=== PATIENT | male | born 1955 | race Caucasian/White ===

== ENCOUNTER 2018-12-25 19:22 | Emergency (ER) | payer OTHER, SELFPAY ==
[2018-12-25 19:24] VITALS: BP 108/82; PULSE 162; RESP 16; TEMP 36.9; O2SAT 97; BMI 21.3
--- NOTE | 2018-12-25 19:29 | EKG12_ITS ---
Test Reason : CP Blood Pressure : / mmHG Vent. Rate : 107 BPM Atrial Rate : 107 BPM P-R Int : 166 ms QRS Dur : 074 ms QT Int : 316 ms P-R-T Axes : 077 055 055 degrees QTc Int : 421 ms Sinus tachycardia Otherwise normal ECG Confirmed by ALEXYS TURNER ([id number]), editor news MAURICE KAMARA ([id number]) on 12/27/2018 1:18:56 PM Referred By: JOCELINE Confirmed By:ALEXYS TURNER
[2018-12-25 19:40] LABS: Hematocrit 42.9 % (40-54); Mean Corpuscular Hgb 32.8 pg (27.0-32.0); Mean Corpuscular Volume 93.9 fL (80-94); Platelet Count 297 K/mm3 (150-450); RBC Distribution Width CV 13.4 % (11.6-14.6); RBC Distribution Width SD 44.6 fl (35.1-43.9); Red Blood Count 4.57 M/mm3 (4.6-6.2); White Blood Count 11.2 K/mm3 (4.4-11.0)
[2018-12-25 19:42] LABS: Scan Indicated on CBC? Y/N NO
[2018-12-25 20:01] LABS: Anion Gap 10 (5-15); BUN 13 mg/dL (7-18); BUN/Creat Ratio 13.9 RATIO (10-20); Calcium,Total 8.2 mg/dL (8.5-10.1); Chloride 107 mmol/L (98-107); Creatinine, Serum 0.93 mg/dL (0.70-1.30); EST Glomerular Filtration Rate 87 mL/min (>60); Est Glom Filt Rate - Afr Amer 105 mL/min (>60); Estimated Creatinine Clearance 83.31 ml/min; Glucose 88 mg/dL (74-106); Potassium 3.3 mmol/L (3.5-5.1); Sodium Level 140 mmol/L (136-145)
--- NOTE | 2018-12-25 20:06 | ED.DCSUM_ITS ---
History of Present Illness Chief Complaint: Chest Pain Detail of Chief Complaint: Patient complains of palpitations that started couple hours prior to presen Informant: Patient Onset: Today Context: Sudden Onset Timing: Continuous Quality: Palpitations and type sensation Location: Central chest Current Severity: Mild Maximum Severity: Mild Worsened by: Palpitations Relieved by: Nothing Associated Symptoms: Chest tightness Narrative: Patient presents with palpitations and chest discomfort. Onset couple hours prior to presentation. Patient reports intermittent symptoms in the past. He has no past medical history no medication. He is a smoker 1/2 pack/day since the age of 17. He denies symptoms of claudication. He denies exertional dyspnea or exertional chest pain. He denies heat or cold intolerance. He denies weight gain or weight loss. Prior similar symptoms: Yes Recent Illness/Hospitalization: No - Past Medical History (1) No significant past medical history Status: Acute Past Medical History - Allergies and Home Meds Allergies/Adverse Reactions: Allergies No Known Allergies Allergy (Verified 12/25/18 19:29) Primary Care Physician: Care Physician,No Primary [Primary Care Provider] - Prior records reviewed: Yes Surgical History: herniorrhaphy Lives: Alone Smoking Status: Current some day smoker Alcohol: None Drugs: None Review of Systems General: Denies: Chills, Fever, Sweats Eyes: Denies: Visual changes - bilaterally, Diplopia ENT: Denies: Rhinorrhea, Sore throat Cardiovascular: Reports: Chest pain, Palpitations, Heart racing Respiratory: Denies: Dyspnea, Cough, Sputum, Dyspnea on exertion, Orthopnea, Paroxysmal nocturnal dyspnea, -, - Gastrointestinal: Denies: Abdominal pain, Nausea, Vomiting, Diarrhea, Melena, Hematochezia Genitourinary: Denies: Dysuria, Hematuria, Frequency Musculoskeletal: Denies: Back pain, Extremity Pain Skin: Denies: Rash, Wounds Neurological: Denies: Headache, Weakness, Numbness Hematologic: Denies: Easy bruising Allergy: Denies: Uticaria, Swelling of the mouth Physical Exam Vital Signs/Narrative: Vital Signs Temp Pulse Resp BP Pulse Ox 12/25/18 19:24 98.4 F 162 H 16 108/82 H 97 Inital Vital Signs reviewed: Yes General: Well nourished, Well developed, No Acute Distress Head: Normocephalic, Atraumatic Eyes: Perrl, EOMI ENT: Moist mucous membranes, No rhinorrhea Neck: Supple, Nontender Cardiovascular: Regular rhythm, No murmurs, Normal S1, Normal S2, Tachycardia Respiratory: No distress, CTA bilaterally, Chest nontender Abdomen: Soft, Nontender, Nondistended, Normal bowel sounds Back: Nontender, Normal Inspection Extremities: Nontender, No edema, - - There is no asymmetry, swelling, discoloration, leg vein distention, palpable cords or tenderness along the distribution of the deep venous system. Skin: Normal color, No rash. Negative for: Cyanosis, Jaundice Neurological: Alert, Oriented x3, Cranial nerves II-XII grossly intact, Normal Strength, Normal Sensation, Normal DTR Psychological: Normal affect, Normal Mood Diagnostic/Tx/Re-eval Laboratory Results 12/25/18 12/25/18 19:35 19:35 WBC 11.2 H RBC 4.57 L Hgb 15.0 Hct 42.9 MCV 93.9 MCH 32.8 H MCHC 35.0 RDW 13.4 RDW Differential 44.6 H Plt Count 297 MPV 9.0 Sodium 140 Potassium 3.3 L Chloride 107 Carbon Dioxide 23.0 Anion Gap 10 BUN 13 Creatinine 0.93 Estim Creat Clear Calc 83.31 Est GFR (MDRD) Af Amer 105 Est GFR (MDRD) Non-Af 87 BUN/Creatinine Ratio 13.9 Glucose 88 Calcium 8.2 L Troponin I < 0.015 - Rhythm Strip Rhythm Strip: Sinus Tach Rate: 157 - Narrow complex - EKG Initial EKG Interpretation: Sinus Tachycardia - Ventricular rate is 107. VT interval, QS duration, QT interval and axis are normal. - Medical Decision Making Monitor reveals a narrow complex tachycardia. Between 1 5156. This may represent an intranodal tachycardia versus atrial flutter. Since patient is 63 years of age history of smoking complains of tightness troponin was added. Blood work was added as well. Since EKG reveals a sinus tachycardia will observe and contact cardiology once results are available. I was informed by nurse Kareen Bear that patient had left the department. He left because he he was not been to be questioned by a [facility] doctor about his smoking. Blood work reveals a mildly elevated white count. Potassium is 3.3. ED Disposition - Plan for ED Patient: Disposition: Against Medical Advice Diagnosis: Narrow complex tachycardia, Chest pain, central Referrals: Care Physician,No Primary [Primary Care Provider] -
--- NOTE | 2018-12-25 20:09 | ED.RN ---
Pt seen walking out ED doors; followed pt out to check to see if he had a SL still in place and found that he did rt AC. Asked pt to return to have it removed. Pt came with RN, but stated I'm not waiting around 3hrs for some [facility] Doctor to tell me to quit smoking. I don't need treated. Pt returned to room and his RN followed in to removed SL. MD Bean notified of events.
[2018-12-25 20:15] VITALS: BP 99/82; PULSE 106; RESP 18; O2SAT 98
--- NOTE | 2018-12-25 20:17 | NURSING ---
pt walked out of the hospital and was escorted by another RN back to his room. this RN discussed with pt about leaving AMA. Pt stated he does not want the doctor that came in. this RN offered to have another doctor see him. the pt refused. the pt signed the AMA forms and called for a cab. the PIV was removed and discontinued PIV site was intact.
== END 2018-12-25 20:35 | disposition left against medical advice (07) ==
PROVIDERS: Emergency Provider Emergency Medicine
DX: R07.9 Chest pain, unspecified (principal); R00.2 Palpitations; R00.0 Tachycardia, unspecified; F17.200 Nicotine dependence, unspecified, uncomplicated
CPT/HCPCS: 36415; 80048; 84484; 85027; 93005; 99285; A4216

== ENCOUNTER 2018-12-28 12:18 | Emergency (ER) | payer OTHER, SELFPAY ==
[2018-12-28 12:18] VITALS: BP 158/95; PULSE 88; RESP 18; TEMP 36.6; O2SAT 98; BMI 21.1
--- NOTE | 2018-12-28 13:11 | RAD_ITS ---
STUDY: X-RAY CHEST REASON FOR EXAM: Male, 63 years old. Chest pain. Irregular heart rate. TECHNIQUE: PA and lateral views of the chest. COMPARISON: None. FINDINGS: EKG electrodes are seen. Hyperinflation. The lungs are clear. Decreased bilateral bronchovascular markings suggestive of emphysematous changes. There is no demonstrated pleural abnormality. Normal size heart. Normal mediastinum and ajit. Normal visualized pulmonary arteries. Normal visualized aortic arch and descending thoracic aorta. Normal visualized thoracic spine. Normal visualized ribs, clavicles, and shoulders. There is no demonstrated abnormality of the visualized soft tissue structures of the upper abdomen. RAD/Chest PA and Lateral IMPRESSION: Hyperinflation. The lungs are clear. Electronically Signed: Se Heller, at 13:59 EDT , Service support ,
--- NOTE | 2018-12-28 13:11 | EKG12_ITS ---
Test Reason : PALPITATIONS Blood Pressure : / mmHG Vent. Rate : 079 BPM Atrial Rate : 079 BPM P-R Int : 142 ms QRS Dur : 072 ms QT Int : 366 ms P-R-T Axes : 070 064 055 degrees QTc Int : 419 ms Normal sinus rhythm Nonspecific ST abnormality Abnormal ECG Confirmed by ALEXYS TURNER ([id number]), department editor MELBA MORA ([id number]) on 01/03/2019 3:32:56 PM Referred By: JAVED Confirmed By:ALEXYS TURNER
--- NOTE | 2018-12-28 13:20 | PCA ---
NO OLD EKG
--- NOTE | 2018-12-28 13:25 | PCA ---
GOT OLD EKG
[2018-12-28 13:36] LABS: Absolute Neutrophil Count 7.6 X10^3/uL (2.0-7.7); Basophil# 0.02 X10^3/uL; Basophil% 0.2 % (0-1); Eosinophil# 0.13 X10^3/uL; Eosinophils% 1.2 % (0-5); Hemoglobin 14.1 g/dl (13.0-16.5); Lymphocyte % 21.5 % (19-41); Mean Corp Hgb Conc 34.4 g/gl (32-36); Mean Corpuscular Hgb 32.6 pg (27.0-32.0); Mean Corpuscular Volume 94.9 fL (80-94); Mean Platelet Vol. 9.2 fl (6.2-12.0); Monocyte# 0.63 X10^3/uL; Monocyte% 5.9 % (0-10); Neutrophil # 7.61 X10^3/uL (2.7-7.7); POSITIVE COUNT NO; POSITIVE DIFFERENTIAL NO; POSITIVE MORPHOLOGY NO; Platelet Count 286 K/mm3 (150-450); RBC Distribution Width CV 13.6 % (11.6-14.6); RBC Distribution Width SD 47.3 fl (35.1-43.9); Red Blood Count 4.32 M/mm3 (4.6-6.2); White Blood Count 10.7 K/mm3 (4.4-11.0)
[2018-12-28 13:52] LABS: Anion Gap 8 (5-15); BUN 15 mg/dL (7-18); BUN/Creat Ratio 18.2 RATIO (10-20); Calcium,Total 8.6 mg/dL (8.5-10.1); Chloride 106 mmol/L (98-107); Creatinine, Serum 0.83 mg/dL (0.70-1.30); EST Glomerular Filtration Rate 100 mL/min (>60); Est Glom Filt Rate - Afr Amer 120 mL/min (>60); Glucose 102 mg/dL (74-106); Potassium 3.9 mmol/L (3.5-5.1); Sodium Level 139 mmol/L (136-145)
[2018-12-28 14:18] VITALS: RESP 16
--- NOTE | 2018-12-28 15:57 | ED.VISSUMM ---
- ER Visit Summary Date of Service: 12/28/18 Chief Complaint: Palpitations and chest pain History of Present Illness: The patient is a 63 M who presents with palpitations and chest pain that has been intermittent over the past 2 days. Patient states that today when he got to work he felt his heart racing. Patient states the palpitations seem to be worse with some exertion. Patient states he also notices them when he is under stress. Patient states he does get some tightness in his chest when he gets the palpitations. Patient denies any nausea or vomiting. Patient denies any diaphoresis. Patient does admit to some lightheadedness and shortness of breath with the palpitations. Patient denies any fevers or cough. Patient is a smoker. Patient denies any other cardiac or PE risk factors. Physical Examination: Vital signs are stable. Patient is afebrile. Patient is in no acute distress. Oral mucosa is pink and moist. Neck is supple. Trachea is midline. There is no JVD noted. Heart was regular rate and rhythm. Lungs are clear and equal bilateral. Abdomen is soft. Bowel sounds are normal. There is no tenderness. There is no guarding noted. Skin is warm dry. Cranial nerves II through XII are intact. There are no focal motor or sensory deficits noted. The remaining physical exam is within normal limits. Test Results: EKG showed normal sinus rhythm with a rate of 79. There are no acute ST or T wave changes. CBC, basic metabolic profile, troponin were obtained and were normal. PA and lateral chest x-ray was obtained and does not show any acute cardiopulmonary process. Emergency Department Course and Treatment: Patient was observed here in the emergency department. Patient had no episodes of tachycardia here. Patient has a HEART score of 3. Patient has a JAX risk score of 0. She was advised that this is low risk for acute cardiac event. Patient was instructed to follow-up with her primary care physician in 5 to 7 days. Patient was advised that he may need prolonged cardiac monitoring. Patient understood and was agreeable with the plan. All questions were answered. Disposition: Discharge home Impression: Palpitations This note was generated with Trapmine[employer] software. It may contain incorrect words, spelling, and punctuation that were not noted in review of the chart prior to signing ED Disposition - Plan for ED Patient: Disposition: Home or Assisted Living Diagnosis: Palpitations Instructions: ED Palpitations Referrals: Care Physician,Jenn Primary [Primary Care Provider] - Emmanuel Mcmahan MD [STAFF PHYSICIAN] - 5-7 Days
--- NOTE | 2018-12-28 16:01 | ED.DCSUM_ITS ---
- ER Visit Summary Date of Service: 12/28/18 Chief Complaint: Palpitations and chest pain History of Present Illness: The patient is a 63 M who presents with palpitations and chest pain that has been intermittent over the past 2 days. Patient states that today when he got to work he felt his heart racing. Patient states the palpitations seem to be worse with some exertion. Patient states he also notices them when he is under stress. Patient states he does get some tightness in his chest when he gets the palpitations. Patient denies any nausea or vomiting. Patient denies any diaphoresis. Patient does admit to some lightheadedness and shortness of breath with the palpitations. Patient denies a ny fevers or cough. Patient is a smoker. Patient denies any other cardiac or PE risk factors. Physical Examination: Vital signs are stable. Patient is afebrile. Patient is in no acute distress. Oral mucosa is pink and moist. Neck is supple. Trachea is midline. There is no JVD noted. Heart was regular rate and rhythm. Lungs are clear and equal bilateral. Abdomen is soft. Bowel sounds are normal. There is no tenderness. There is no guarding noted. Skin is warm dry. Cranial nerves II through XII are intact. There are no focal motor or sensory deficits noted. The remaining physical exam is within normal limits. Test Results: EKG showed normal sinus rhythm with a rate of 79. There are no acute ST or T wave changes. CBC, basic metabolic profile, troponin were obtained and were normal. PA and lateral chest x-ray was obtained and does not show any acute cardiopulmonary process. Emergency Department Course and Treatment: Patient was observed here in the emergency department. Patient had no episodes of tachycardia here. Patient has a HEART score of 3. Patient has a JAX risk score of 0. She was advised that this is low risk for acute cardiac event. Patient was instructed to follow-up with her primary care physician in 5 to 7 days. Patient was advised that he may need prolonged cardiac monitoring. Patient understood and was agreeable with the plan. All questions were answered. Disposition: Discharge home Impression: Palpitations This note was generated with SilverPushation software. It may contain incorrect words, spelling, and punctuation that were not noted in review of the chart prior to signing ED Disposition - Plan for ED Patient: Disposition: Home or Assisted Living Diagnosis: Palpitations Instructions: ED Palpitations Referrals: Care Physician,No Primary [Primary Care Provider] - Emmanuel Mcmahan MD [STAFF PHYSICIAN] - 5-7 Days
[2018-12-28 16:09] VITALS: BP 140/87; PULSE 82; RESP 16; O2SAT 98
--- NOTE | 2018-12-28 16:10 | ED.RN ---
PT GIVEN WRITTEN AND VERBAL DISCHARGE INSTRUCTIONS. PT VERBALIZES UNDERSTANDING AND DENIES ANY FURTHER QUESTIONS. IV D/C AND COVERED WITH 2X2 GAUZE AND PAPER TAPE. PT AMBULATES OUT OD DEPT AFTER DRESSING SELF. AMBULATES OUT WITH .
== END 2018-12-28 16:12 | disposition home or self-care (01) ==
PROVIDERS: Emergency Provider Emergency Medicine
DX: R00.2 Palpitations (principal); R07.9 Chest pain, unspecified; R06.02 Shortness of breath; R42 Dizziness and giddiness; M54.2 Cervicalgia; F17.200 Nicotine dependence, unspecified, uncomplicated
CPT/HCPCS: 71046; 80048; 84484; 85025; 93005; 99285

== ENCOUNTER 2020-04-03 19:34 | Emergency (ER) | payer OTHER, SELFPAY ==
[2020-04-03] VITALS (7 sets, daily range): BP systolic 102–132; BP diastolic 68–95; PULSE 112–159; RESP 10–18; TEMP 36.4; O2SAT 99–100; BMI 19.9
--- NOTE | 2020-04-03 19:48 | EKG12_ITS ---
Test Reason : REPEAT EKG Blood Pressure : / mmHG Vent. Rate : 116 BPM Atrial Rate : 116 BPM P-R Int : 160 ms QRS Dur : 086 ms QT Int : 332 ms P-R-T Axes : 078 065 046 degrees QTc Int : 461 ms Sinus tachycardia Otherwise normal ECG Confirmed by ALEXYS TURNER ([id number]), editor trade journal MAJOR VIERA ([id number]) on 04/09/2020 9:50:06 AM Referred By: ROQUE Confirmed By:ALEXYS TURNER
[2020-04-03] MEDS: 0.9% Normal Saline 1,000 ML 1000 ML IV (19:52)
[2020-04-03] MEDS: Adenosine 6 MG/2 ML Syringe IV (19:52)
[2020-04-03] MEDS: Adenosine 6 MG/2 ML Syringe 12 MG IV (19:55)
--- NOTE | 2020-04-03 19:58 | EKG12_ITS ---
Test Reason : DYSRHYTHMIA Blood Pressure : / mmHG Vent. Rate : 158 BPM Atrial Rate : 159 BPM P-R Int : 000 ms QRS Dur : 084 ms QT Int : 286 ms P-R-T Axes : 000 050 043 degrees QTc Int : 463 ms Supraventricular tachycardia Nonspecific ST abnormality Abnormal ECG Confirmed by ALEXYS TURNER ([id number]), scientific publications editor MAJOR VIERA ([id number]) on 04/09/2020 9:49:34 AM Referred By: ROQUE Confirmed By:ALEXYS TURNER
--- NOTE | 2020-04-03 20:00 | RAD_ITS ---
STUDY: X-RAY CHEST REASON FOR EXAM: Male, 64 years old. Atrial fibrillation beginning this afternoon. Dizziness. Headache. TECHNIQUE: Single AP portable view of the chest. COMPARISON: 12/28/2018 FINDINGS: There is hyperinflation of the lungs consistent with chronic obstructive lung disease (COPD). No acute infiltrate or mass. There is no demonstrated pleural abnormality. Normal size heart. Normal mediastinum and ajit. Normal visualized pulmonary arteries. Normal visualized aortic arch and descending thoracic aorta. Normal visualized thoracic spine. Normal visualized ribs, clavicles, and shoulders. There is no demonstrated abnormality of the visualized soft tissue structures of the upper abdomen. RAD/Chest 1 View (Portable) IMPRESSION: Hyperinflated lungs without acute cardiopulmonary disease or major interval change. Electronically Signed: Jose Wick DO at 20:24 EDT Tel [phone], Service support ,
[2020-04-03] MEDS: Aspirin 81 MG TAB.CHEW 324 MG PO (20:06)
[2020-04-03 20:37] LABS: Absolute Lymphocyte Count 3.45 X10^3/uL (0.83-4.51); Absolute Neutrophil Count 4.9 X10^3/uL (2.0-7.7); Basophil# 0.07 X10^3/uL; Basophil% 0.7 % (0-1); Eosinophil# 0.37 X10^3/uL; Eosinophils% 3.8 % (0-5); Hemoglobin 15.3 g/dL (13.0-16.5); Lymphocyte # 3.45 X10^3/ul (4.0); Lymphocyte % 35.7 % (19-41); Mean Corpuscular Hgb 34.5 pg (27.0-32.0); Mean Corpuscular Volume 101.4 fL (80-94); Mean Platelet Vol. 9.7 fl (6.2-12.0); Monocyte# 0.83 X10^3/uL; Monocyte% 8.6 % (0-10); NRBC Flagged by Analyzer 0 % (0-5); Neutrophil # 4.92 X10^3/uL (2.7-7.7); Neutrophil % 50.9 % (47-70); Platelet Count 408 K/mm3 (150-450); RBC Distribution Width CV 12.9 % (11.6-14.6); RBC Distribution Width SD 48.3 fl (35.1-43.9); Red Blood Count 4.44 M/mm3 (4.6-6.2); White Blood Count 9.7 K/mm3 (4.4-11.0)
[2020-04-03 20:57] LABS: Anion Gap 10 (5-15); BUN 13 mg/dL (7-18); BUN/Creat Ratio 13.4 RATIO (10-20); Calcium,Total 9.1 mg/dL (8.5-10.1); Chloride 105 mmol/L (98-107); Creatinine, Serum 0.97 mg/dL (0.70-1.30); EST Glomerular Filtration Rate 83 mL/min (>60); Est Glom Filt Rate - Afr Amer 100 mL/min (>60); Estimated Creatinine Clearance 73.67 ml/min; Glucose 91 mg/dL (74-106); Potassium 4.2 mmol/L (3.5-5.1); Sodium Level 140 mmol/L (136-145); Thyroid Stim Hormone (TSH) 1.58 uIU/mL (0.358-3.74)
--- NOTE | 2020-04-03 21:33 | ED.DCSUM_ITS ---
- ER Visit Summary Date of Service: 04/03/20 Chief Complaint: Chest pain and palpitations History of Present Illness: The patient is a 64 M who goes to the [facility]. He reports that at 4:00 this afternoon he had the onset of palpitations. Described this as a fast pounding heart rate. States he feels lightheaded with this. He is not passed out. He also describes a dull, pressure to his chest that was 10 on 10 at worst and 4-10 currently. Is worsened by nothing including exertion. Is also relieved by nothing. He reports he has been nauseated, diaphoretic, and mildly short of breath with this. Patient reports that he is had this multiple times in the past. Is never lasted this long. He is not sure what the cause of this was. He is not anticoagulated. Physical Examination: Vitals: 98.6, 118/81, 158, 20, 99% room air which is not hypoxic. General: Well-nourished and well-developed. Head: Normocephalic atraumatic. Neck: Supple, no lymphadenopathy. No JVD. Nontender. Cardiovascular: Tachycardic regular rhythm. No murmurs. Respiratory: No respiratory distress. Clear to auscultation bilaterally. Abdominal: Soft, nontender, nondistended, normal bowel sounds. No guarding, rebound, or peritoneal signs. Back: Nontender. Extremities: Nontender, no edema. Skin: Normal color, no rash. Neurologic: Alert and oriented ?3. Cranial nerves II through XII are intact. Normal strength and sensation. Psych: Normal affect. Test Results: EKG shows SVT at 158. Repeat EKG is sinus tach at [address] changes. CBC is normal. Chem-7 is normal. Troponin is negative. TSH is normal. Chest x-ray shows chronic changes. Emergency Department Course and Treatment: Patient had an IV placed. Is given 6 mg of adenosine IV with not even a pause. He was then given 12 mg of adenosine IV and converted to sinus rhythm. However, he was tachycardic in the 1 teens following this. He was given 25 mg of Lopressor p.o. Treatment Plan: Patient discussed Dr. Moreno. He will be discharged on Lopressor. Instructed to follow-up in 1 to 2 weeks for another exam. Return to the emergency department for any worsening symptoms. Disposition: To home in improved and stable condition. Impression: 1. SVT. 2. Sinus tachycardia. 3. Cardioversion with adenosine. This note was generated with [employer] dictation software. It may contain incorrect words, spelling, and punctuation that were not noted in review of the chart prior to signing ED Disposition - Plan for ED Patient: Disposition: Home or Assisted Living Instructions: ED Tachycardia PAT Prescriptions: Metoprolol Tartrate 25 mg PO BID #60 tab Prescription Printed Referrals: Elina Noriega NP-Dillon [Primary Care Provider] - Sulma Moreon MD [STAFF PHYSICIAN] - 1-2 Weeks
[2020-04-03] MEDS: Metoprolol Tartrate 25 MG Tablet PO (21:49)
== END 2020-04-03 21:50 | disposition home or self-care (01) ==
LOC: ED 20:09
PROVIDERS: Emergency Provider Emergency Medicine; PCP Nurse Practitioner Family
DX: I47.1 Supraventricular tachycardia (principal); F17.200 Nicotine dependence, unspecified, uncomplicated
CPT/HCPCS: 71045; 80048; 84443; 84484; 85025; 93005; 96361; 96374; 96376; 99285; J7030; A4216; J0153

== ENCOUNTER → 2021-06-07 09:21 | Outpatient (CLI) | payer OTHER, SELFPAY ==
[2021-06-07 09:48] LABS: Absolute Lymphocyte Count 1.92 X10^3/uL (0.83-4.51); Absolute Neutrophil Count 4.8 X10^3/uL (2.0-7.7); Basophil# 0.06 X10^3/uL; Basophil% 0.8 % (0-1); Eosinophil# 0.35 X10^3/uL; Eosinophils% 4.5 % (0-5); Hematocrit 44.2 % (40-54); Hemoglobin 14.8 g/dL (13.0-16.5); Lymphocyte # 1.92 X10^3/ul (0.83-4.51); Lymphocyte % 24.5 % (19-41); Mean Corp Hgb Conc 33.5 g/dL (32-36); Mean Corpuscular Hgb 33.9 pg (27.0-32.0); Mean Corpuscular Volume 101.1 fL (80-94); Mean Platelet Vol. 9.7 fl (6.2-12.0); Monocyte# 0.66 X10^3/uL; Monocyte% 8.4 % (0-10); NRBC Flagged by Analyzer 0 % (0-5); Neutrophil # 4.81 X10^3/uL (2.7-7.7); Neutrophil % 61.4 % (47-70); Platelet Count 329 K/mm3 (150-450); RBC Distribution Width CV 12.8 % (11.6-14.6); RBC Distribution Width SD 48.1 fl (35.1-43.9); Red Blood Count 4.37 M/mm3 (4.6-6.2); White Blood Count 7.8 K/mm3 (4.4-11.0)
[2021-06-07 10:52] LABS: ALB/GLOB Ratio 1.1 RATIO (0.9-2.4); AST(SGOT) 37 U/L (15-37); Alanine Aminotransfer ALT/SGPT 53 U/L (16-61); Albumin, Serum 4.2 g/dL (3.2-5.0); Alkaline Phosphatase 69 U/L (45-117); Anion Gap 7 (5-15); BUN 18 mg/dL (7-18); Calcium,Total 8.8 mg/dL (8.5-10.1); Chloride 106 mmol/L (98-107); Cholesterol 237 mg/dL (200); EST Glomerular Filtration Rate 79 mL/min (>60); Est Glom Filt Rate - Afr Amer 96 mL/min (>60); Globulin 3.9 g/dL (2.2-4.2); Glucose 113 mg/dL (74-106); High Density Lipoprotein 81 mg/dL; PSA,Total - Annual Screen 8.63 ng/mL (0.00-4.00); Potassium 4.6 mmol/L (3.5-5.1); Protein, Total 8.1 g/dL (6.4-8.2); Sodium Level 139 mmol/L (136-145); Thyroid Stim Hormone (TSH) 0.94 uIU/mL (0.358-3.74); Triglycerides 71 mg/dL; Very Low Density Lipoprotein 14 mg/dL (5-40)
== END ==
LOC: LAB 09:22
PROVIDERS: Referring Provider Nurse Practitioner Adult Health; Visit Provider Nurse Practitioner Adult Health
DX: Z12.5 Encounter for screening for malignant neoplasm of prostate (principal); Z12.11 Encounter for screening for malignant neoplasm of colon; I10 Essential (primary) hypertension
CPT/HCPCS: 36415; 80053; 80061; 82274; 84153; 84443; 85025; G0103

== ENCOUNTER 2021-07-02 07:42 | Day surgery (SDC) | payer OTHER, SELFPAY ==
--- NOTE | 2021-07-02 | EGD_PTH ---
PATIENT: Freya LITTLE LOC: EN U#:[id number] AGE/SX: 66/M ROOM: RE07/02/[address]: Dr. Nolan Calderon MD : [id number] BED: DIS: 07/02/2021 SPEC #: [id number] RECD: 07/02/21 13:25 STATUS: AUTUMN REJessica #: [id number] YAIMA: 07/02/21 00:[address]: Nolan Calderon DEPT: SURGICAL PATHOLOGY RECD BY: Salo Humphreys ENTERED: 07/02/21 13:25 SP TYPE: EGD BIOPSY OT DR: Ellyn Beaulieu, DIRECTOR [facility] Tissues: Cecum, NOS Procedures: Surgery Specimen Level IV HEADER OPERATION: Colonoscopy, EGD ([facility]) PRE-OP DIAGNOSIS: Anemia, fecal occult blood test positive TISSUE SUBMITTED: Cecum biopsy MICROSCOPIC DIAGNOSIS Cecum, biopsy: No pathologic change. AM:juma 07/03/2021 MICROSCOPIC DESCRIPTION Slides are reviewed. GROSS DESCRIPTION Received in fixative is one container labeled with the patient's name and designated cecum biopsy. The specimen consists of multiple irregular fragments of light carter soft tissue that in aggregate measure 0.5 x 0.5 x 0.1 cm. The specimen is totally submitted in one cassette. / ROBERT:juma 07/02/21 TC:5 CPT: 78534
--- NOTE | 2021-07-02 08:06 | PCM.HP.BLA ---
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 Is patient in pain?: No Allergies No Known Allergies Allergy (Verified 06/25/21 09:29) Medications aspirin 81 mg tablet,delayed release 81 mg PO DAILY 06/25/21 [History Confirmed 06/25/21] cetirizine 10 mg tablet 10 mg PO DAILY 06/25/21 [History Confirmed 06/25/21] dorzolamide 22.3 mg-timolol 6.8 mg/mL eye drops 1 drp OPHTHALMIC (EYE) BID 06/25/21 [History Confirmed 06/25/21] fluticasone propionate 50 mcg/actuation nasal spray,suspension 1 spray INTRANASAL DAILY 06/25/21 [History Confirmed 06/25/21] latanoprost 0.005 % eye drops 1 drp OPHTHALMIC (EYE) QPM 06/25/21 [History Confirmed 06/25/21] lisinopril 20 mg tablet 20 mg PO DAILY 06/25/21 [History Confirmed 06/25/21] mecobalamin (vitamin B12) 5,000 mcg disintegrating tablet mcg PO 06/25/21 [History Confirmed 06/25/21] multivitamin 1 tab PO DAILY 06/25/21 [History Confirmed 06/25/21] PFSH Medical History Atrial fibrillation HTN (hypertension) Surgical History History of eye surgery History of hernia repair Family History Father Colon cancer Mother Diabetes Social History (Updated 06/25/21 @ 09:33 by Ida Figueroa) Smoking Status: Current every day smoker Tobacco: How many years used: 42 HPI HPI HPI: Freya LITTLE, is a 66 M who presents to the office today for positive fecal occult blood test. Patient notes that he is not having any abdominal pain or gross blood in his stool. He was found to be anemic during his last blood draw which facilitated the fecal occult blood test. The patient does note that his father had colon cancer in his 70s. Patient is never had a colonoscopy in the past. He has no abdominal pain. ROS General General: No weight change, appetite, fatigue, colon cancer, breast cancer or weakness HEENT HEENT: No difficulty swallowing, eye injury, eye surgery, swollen glands or hoarseness Endo Endocrine: No thyroid disease, diabetes mellitus, thyroid cancer, Hair loss, heat intolerance or cold intolerance Cardio Cardiovascular: Yes atrial fibrillation and high blood pressure; No murmur, pacemaker, heart disease, heart attack, heart stent, palpitations, shortness of breat with exertion or chest pain Psych Psychiatric: No depression, anxiety or hearing voices Resp Respiratory: No shortness of breath, No sleep apnea, Yes cough, No COPD, No asthma, No emphysema and No wheezing Gastro Gastrointestinal: No abdominal pain, No nausea or vomiting, No diarrhea, No constipation, Yes blood in stool, No acid reflux, No hemorrhoids, No ulcers, No gallbladder problem and No black,tarry stools Caden Hematologic: No blood thinners, No blood disorders, No bleeding, Yes anemia and No blood clots Neuro Neurologic: No weakness Exam Const General: cooperative Orientation: alert and oriented x3 [facility] Head: normal to inspection Neck Neck: normal visual inspection and full ROM Chest Chest palpation & inspection: normal inspection of the chest Resp Effort & Inspection: normal respiratory effort Auscultation: clear to auscultation bilaterally Cardio Rate: regular rate Rhythm: regular rhythm GI Inspection: non-distended Palpation: soft and nontender Skin General: no rashes or lesions noted Neuro General: patient alert and patient oriented x3 Extrem General: full ROM Psych Appearance: grossly normal Mental Status: mental status grossly normal Assessment and Plan Assessment and Plan (1) Anemia: Status: Acute Qualifiers: Anemia type: iron deficiency Iron deficiency anemia type: other iron deficiency Qualified Code(s): D50.8 - Other iron deficiency anemias (2) Fecal occult blood test positive: Status: Acute Orders: Orders: Colonoscopy Today R19.5 EGD Today R19.5 Plan - Dr. Nolan Calderon MD: Patient was found to have iron deficiency anemia so fecal occult blood test was ordered and was positive. The patient has a family history of colon cancer in his father has never had a colonoscopy. Plan for EGD and colonoscopy. I explained endoscopy in detail to the patient. I explained the risks including but not limited to stroke or heart attack with anesthesia, perforation of the GI tract, bleeding, infection. I explained that any of these could necessitate further emergency surgery. The patient understands and all questions were answered sufficiently. The patient wishes to proceed with procedure. Nolan Calderon MD Pager: [facility] [address] [place] [address] [address] [place] [address] Office: I have re-examined the patient. There are no clinical changes since date of exam.
[2021-07-02 08:10] VITALS: BP 156/107; PULSE 110; RESP 18; TEMP 36.3; O2SAT 98; BMI 20.3
[2021-07-02] MEDS: Lactated Ringers 1,000 ML 15 ML IV (08:25)
--- NOTE | 2021-07-02 09:22 | OP.CCLET_ITS ---
07/02/2021 Isabel Penny [facility] Re : Upper GI endoscopy procedure for Freya Torres [facility] This procedure was performed on Friday, July 02, 2021. My impressions and recommendations are as follows: Impressions : - Normal esophagus. - Gastritis with hemorrhage. - Normal examined duodenum. - No specimens collected. Recommendations : - Discharge patient to home. - Resume previous diet. - Continue present medications. - Use Prilosec (omeprazole) 40 mg PO daily for 8 weeks. - Use sucralfate tablets 1 gram PO QID for 3 weeks. My findings are described in the full procedure note, which is enclosed. If I can be of further assistance, please feel free to contact me at Doctor phone number(s): , Work: . Sincerely, Nolan Calderon MD 07/02/2021 9:22:06 AM This report has been signed electronically.
--- NOTE | 2021-07-02 09:22 | OP.EGD_ITS ---
Patient Name: Freya Ramirez Procedure Date: 07/02/2021 8:41 AM Date of : 1955 Age: 66 Procedure: Upper GI endoscopy Indications: Iron deficiency anemia Providers: Nolan Calderon MD Medicines: Monitored Anesthesia Care Patient Profile: This is a 66 year old male. Refer to note in patient chart for documentation of history and physical. Complications: No immediate complications. Estimated blood loss: Minimal. Procedure: Pre-Anesthesia Assessment: - Prior to the procedure, a History and Physical was performed, and patient medications and allergies were reviewed. The patient's tolerance of previous anesthesia was also reviewed. The risks and benefits of the procedure and the sedation options and risks were discussed with the patient. All questions were answered, and informed consent was obtained. Prior Anticoagulants: The patient has taken aspirin, last dose was 4 days prior to procedure. After reviewing the risks and benefits, the patient was deemed in satisfactory condition to undergo the procedure. After obtaining informed consent, the endoscope was passed under direct vision. Throughout the procedure, the patient's blood pressure, pulse, and oxygen saturations were monitored continuously. The gastroscope was introduced through the mouth, and advanced to the third part of duodenum. The upper GI endoscopy was accomplished without difficulty. The patient tolerated the procedure well. Scope In: 8:51:33 AM Scope Out: 8:57:23 AM Total Procedure Duration Time 0 hours 5 minutes 50 seconds Findings: The esophagus was normal. Scattered moderate inflammation with hemorrhage characterized by adherent blood was found in the stomach. The examined duodenum was normal. Impression: - Normal esophagus. - Gastritis with hemorrhage. - Normal examined duodenum. - No specimens collected. Recommendation: - Discharge patient to home. - Resume previous diet. - Continue present medications. - Use Prilosec (omeprazole) 40 mg PO daily for 8 weeks. - Use sucralfate tablets 1 gram PO QID for 3 weeks. Procedure Code(s): --- Professional --- 63510, Esophagogastroduodenoscopy, flexible, transoral; diagnostic, including collection of specimen(s) by brushing or washing, when performed (separate procedure) Diagnosis Code(s): --- Professional --- K29.71, Gastritis, unspecified, with bleeding D50.9, Iron deficiency anemia, unspecified CPT copyright 2017 [employer] [place] [employer]. All rights reserved. The codes documented in this report are preliminary and upon community cultural development officer review may be revised to meet current compliance requirements. Nolan Calderon MD 07/02/2021 9:22:06 AM This report has been signed electronically. Number of Addenda: 0 Note Initiated On: 07/02/2021 8:41 AM
[2021-07-02 09:25] VITALS: BP 102/68; BP 156/107; PULSE 98; RESP 16; TEMP 36.3; O2SAT 95
--- NOTE | 2021-07-02 09:26 | OP.CCLET_ITS ---
07/02/2021 Isabel Penny [facility] Re : Colonoscopy procedure for Freya Torres [facility] This procedure was performed on Friday, July 02, 2021. My impressions and recommendations are as follows: Impressions : - Scattered moderate inflammation was found in the cecum. Biopsied. - The examination was otherwise normal on direct and retroflexion views. Recommendations : - Discharge patient to home. - Resume previous diet. - Continue present medications. - Repeat colonoscopy in 5 years for surveillance based on pathology results. My findings are described in the full procedure note, which is enclosed. If I can be of further assistance, please feel free to contact me at Doctor phone number(s): , Work: . Sincerely, Nolan Calderon MD 07/02/2021 9:25:57 AM This report has been signed electronically.
--- NOTE | 2021-07-02 09:26 | OP.COLON_ITS ---
Patient Name: Freya Ramirez Procedure Date: 07/02/2021 8:58 AM Date of : 1955 Age: 66 Procedure: Colonoscopy Indications: Screening in patient at increased risk: Colorectal cancer in father before age 60 Providers: Nolan Calderon MD Medicines: Monitored Anesthesia Care Patient Profile: This is a 66 year old male. Refer to note in patient chart for documentation of history and physical. Last Colonoscopy: none. The patient's first colonoscopy is today. Complications: No immediate complications. Estimated blood loss: Minimal. Procedure: Pre-Anesthesia Assessment: - Prior to the procedure, a History and Physical was performed, and patient medications and allergies were reviewed. The patient's tolerance of previous anesthesia was also reviewed. The risks and benefits of the procedure and the sedation options and risks were discussed with the patient. All questions were answered, and informed consent was obtained. Prior Anticoagulants: The patient has taken aspirin, last dose was 4 days prior to procedure. After reviewing the risks and benefits, the patient was deemed in satisfactory condition to undergo the procedure. After I obtained informed consent, the scope was passed under direct vision. Throughout the procedure, the patient's blood pressure, pulse, and oxygen saturations were monitored continuously. The Colonoscope was introduced through the anus and advanced to the cecum, identified by appendiceal orifice and ileocecal valve. The colonoscopy was performed without difficulty. The patient tolerated the procedure well. The quality of the bowel preparation was good. Scope In: 9:00:18 AM Scope Withdrawal Time 0 hours 6 minutes 6 seconds Scope Out: 9:16:30 AM Total Procedure Duration Time 0 hours 16 minutes 12 seconds Findings: Scattered moderate inflammation characterized by adherent blood was found in the cecum. Biopsies were taken with a cold forceps for histology. The exam was otherwise without abnormality on direct and retroflexion views. Impression: - Scattered moderate inflammation was found in the cecum. Biopsied. - The examination was otherwise normal on direct and retroflexion views. Recommendation: - Discharge patient to home. - Resume previous diet. - Continue present medications. - Repeat colonoscopy in 5 years for surveillance based on pathology results. Procedure Code(s): --- Professional --- 51489, Colonoscopy, flexible; with biopsy, single or multiple Diagnosis Code(s): --- Professional --- Z80.0, Family history of malignant neoplasm of digestive organs K52.9, Noninfective gastroenteritis and colitis, unspecified CPT copyright 2017 [employer]. All rights reserved. The codes documented in this report are preliminary and upon knitting machine operator helper review may be revised to meet current compliance requirements. Nolan Calderon MD 07/02/2021 9:25:57 AM This report has been signed electronically. Number of Addenda: 0 Note Initiated On: 07/02/2021 8:58 AM
[2021-07-02 09:30] VITALS: BP 115/62; BP 156/107; PULSE 109; RESP 16; O2SAT 97
[2021-07-02 09:35] VITALS: BP 122/107; BP 156/107; PULSE 119; RESP 16; O2SAT 97
[2021-07-02 09:40] VITALS: BP 132/87; BP 156/107; PULSE 107; RESP 16; TEMP 36.4; O2SAT 97
[2021-07-02 09:55] VITALS: BP 156/107
== END 2021-07-02 10:05 | disposition home or self-care (01) ==
LOC: EN 07:43 → AC 07:44
PROVIDERS: Visit Provider Surgery
PROC: 0DJD8ZZ Inspection of Lower Intestinal Tract, Via Natural or Artificial Opening Endoscopic (ICD-10-PCS; CPT 45378; principal; 2021-07-02 08:25)
DX: Z12.11 Encounter for screening for malignant neoplasm of colon (principal); K52.9 Noninfective gastroenteritis and colitis, unspecified; K29.71 Gastritis, unspecified, with bleeding; D50.8 Other iron deficiency anemias; R19.5 Other fecal abnormalities; I10 Essential (primary) hypertension; I48.91 Unspecified atrial fibrillation; M19.90 Unspecified osteoarthritis, unspecified site; F17.210 Nicotine dependence, cigarettes, uncomplicated; Z79.82 Long term (current) use of aspirin; Z79.899 Other long term (current) drug therapy; Z80.0 Family history of malignant neoplasm of digestive organs
CPT/HCPCS: 43235; 45380; 88305; J7120; J2405

== ENCOUNTER → 2021-07-05 07:19 | Outpatient (CLI) | payer OTHER, SELFPAY ==
--- NOTE | 2021-07-05 07:28 | CT_ITS ---
STUDY: CT CHEST WITH CONTRAST REASON FOR EXAM: Male, 66 years old. LT NERISSA SYNDROME RADIATION DOSAGE (If Supplied By Facility): CTDIvol = ( 13.42 ) mGy, DLP = ( 899.93 ) mGycm TECHNIQUE: Transaxial imaging was performed following intravenous administration of IV 100mL Isovue-370. Individualized dose optimization techniques were used for this CT. COMPARISON: None. FINDINGS: Mild bilateral apical scarring. Mild emphysema. No noncalcified nodule or mass. There is no demonstrated pleural abnormality. Normal heart and pericardium. Normal mediastinum. Normal hilar regions. Normal enhanced pulmonary arteries. Normal aorta arch and descending thoracic aorta. Mild dextroscoliosis of the thoracic spine. There is no demonstrated abnormality of the visualized upper abdomen. CT/Chest WITH Contrast IMPRESSION: Mild emphysema without pneumonia, atelectasis, nodule, or mass. Electronically Signed: Guille White MD at 10:14 EST Tel , Service support ,
--- NOTE | 2021-07-05 07:29 | CT_ITS ---
STUDY: CT SOFT TISSUE NECK WITH CONTRAST REASON FOR EXAM: Male, 66 years old. LT NERISSA SYNDROME RADIATION DOSAGE (If Supplied By Facility): CTDIvol = ( 13.42 ) mGy, DLP = ( 899.93 ) mGycm TECHNIQUE: The patient was scanned in a multi-detector CT scanner. High resolution transaxial imaging was performed following intravenous administration of IV 100mL Isovue-370. Sagittal and coronal images were reconstructed. Individualized dose optimization techniques were used for this CT. COMPARISON: None. FINDINGS: Normal bilateral parotid glands. Normal bilateral curing press maintainer spaces. Normal bilateral parapharyngeal spaces. Normal bilateral carotid spaces. Normal bilateral sublingual and submandibular glands and spaces. Normal visualized nasopharynx. Normal retropharyngeal space. Normal perivertebral space. Normal visualized bilateral faucial tonsils. The visualized tongue, tongue base and oropharynx are normal. The visualized cervical lymph nodes (levels I-) are within normal size limits, and maintain normal morphology. There is no demonstrated solid or cystic mass lesion. There is no abnormal contrast enhancement. Normal epiglottis, bilateral vallecula and hypopharynx. The pre-epiglottic and paraglottic adipose spaces are normal. Normal visualized bilateral piriform sinuses, aryepiglottic folds, vocal cords, and arytenoid-cricoid articulations. Normal subglottic trachea. Normal bilateral lobes of the thyroid gland. Normal visualized pulmonary apices. There is mucosal inflammatory disease of the paranasal sinuses consistent with chronic sinusitis. Normal visualized cervical spine. CT/Soft Tissue Neck WITH Contrast IMPRESSION: Normal enhanced CT examination of the soft tissues of the neck. Electronically Signed: Guille White MD at 10:08 EST Tel , Service support ,
== END ==
PROVIDERS: Referring Provider Ophthalmology; Visit Provider Ophthalmology
DX: G90.2 Horner's syndrome (principal); J43.9 Emphysema, unspecified; F17.200 Nicotine dependence, unspecified, uncomplicated
CPT/HCPCS: 70491; 71260; Q9967

== ENCOUNTER → 2021-07-17 10:15 | Outpatient (CLI) | payer OTHER, SELFPAY ==
--- NOTE | 2021-07-17 10:35 | MRI_ITS ---
EXAM: MR HEAD WITHOUT AND WITH INTRAVENOUS CONTRAST : 1955 CLINICAL INDICATION: LT NERISSA'S SYNDROME, uneven pupils TECHNIQUE: Multiplanar and multisequence MR images of the brain were obtained without and with intravenous contrast. This report was created using [employer] report Quack technology. CONTRAST: IV 15ml dotarem COMPARISON: None. FINDINGS: BRAIN AND EXTRA-AXIAL SPACES: Multiple foci of increased T2 signal intensity within the cerebral white matter consistent with gliosis/chronic microvascular disease. No abnormal contrast enhancement. No intra- or extra-axial hemorrhage. No evidence of acute infarct. No intracranial mass or mass effect. There is preservation of the zimmer/white matter interface. Posterior fossa structures are unremarkable. Ventricles are appropriate for age. No hydrocephalus. Basal cisterns are patent. SELLA: Unremarkable. Normal sella turcica, pituitary gland, infundibular stalk, optic chiasm and hypothalamus. AUDITORY SYSTEM: Unremarkable. The internal auditory canals are patent. BONES/JOINTS: Unremarkable. No discrete lytic or blastic abnormalities. SINUSES: Mucosal thickening noted within the paranasal sinuses. MASTOID AIR CELLS: Unremarkable as visualized. Clear. ORBITS: Unremarkable as visualized. Both globes, extraocular muscles, optic nerves and retrobulbar fat appear unremarkable. VASCULATURE: Unremarkable as visualized. Normal flow voids in the major intracranial circulation. MRI/Brain W/WO Contrast IMPRESSION: 1. No acute intracranial abnormality. 2. Chronic microvascular changes. at 1545 Reported and signed by: Homar Viramontes MD Electronically Signed: Homar Viramontes MD at 15:44 EST Tel , Service support ,
== END ==
LOC: MRI 10:21
PROVIDERS: Referring Provider Ophthalmology; Visit Provider Ophthalmology
DX: G90.2 Horner's syndrome (principal)
CPT/HCPCS: 70553; A9575

== ENCOUNTER 2021-11-20 17:26 | Emergency (ER) | payer SELFPAY ==
[2021-11-20 17:27] VITALS: BP 141/104; PULSE 94; RESP 20; TEMP 36.7; O2SAT 96; BMI 21.2
[2021-11-20] MEDS: 0.9% Normal Saline 1,000 ML 1000 ML IV (17:48)
[2021-11-20 17:54] LABS: Absolute Lymphocyte Count 1.51 X10^3/uL (0.83-4.51); Absolute Neutrophil Count 3.6 X10^3/uL (2.0-7.7); Basophil# 0.09 X10^3/uL; Basophil% 1.4 % (0-1); Eosinophil# 0.34 X10^3/uL; Eosinophils% 5.2 % (0-5); Hematocrit 39.8 % (40-54); Hemoglobin 13.7 g/dL (13.0-16.5); Lymphocyte # 1.51 X10^3/ul (0.83-4.51); Mean Corp Hgb Conc 34.4 g/dL (32-36); Mean Corpuscular Volume 101.8 fL (80-94); Mean Platelet Vol. 9.8 fl (6.2-12.0); Monocyte# 1.02 X10^3/uL; Monocyte% 15.5 % (0-10); NRBC Flagged by Analyzer 0 % (0-5); Neutrophil # 3.58 X10^3/uL (2.7-7.7); Neutrophil % 54.6 % (47-70); Platelet Count 240 K/mm3 (150-450); RBC Distribution Width CV 15.1 % (11.6-14.6); RBC Distribution Width SD 56.6 fl (35.1-43.9); Red Blood Count 3.91 M/mm3 (4.6-6.2); White Blood Count 6.6 K/mm3 (4.4-11.0)
[2021-11-20 18:03] LABS: International Normalized Ratio 0.9; Prothrombin Time (Protime)PT. 11.7 SECONDS (11.7-14.9)
[2021-11-20 18:11] LABS: AST(SGOT) 78 U/L (15-37); Alanine Aminotransfer ALT/SGPT 82 U/L (16-61); Albumin, Serum 4.1 g/dL (3.2-5.0); Alkaline Phosphatase 75 U/L (45-117); Anion Gap 6 (5-15); BUN 10 mg/dL (7-18); BUN/Creat Ratio 10.2 RATIO (10-20); Bilirubin, Direct 0.09 mg/dL (0.00-0.30); Calcium,Total 9.2 mg/dL (8.5-10.1); Chloride 101 mmol/L (98-107); Creatinine, Serum 0.98 mg/dL (0.70-1.30); EST Glomerular Filtration Rate 81 mL/min (>60); Est Glom Filt Rate - Afr Amer 98 mL/min (>60); Estimated Creatinine Clearance 73.46 ml/min; Glucose 161 mg/dL (74-106); Lipase 636 U/L (73-393); Potassium 3.5 mmol/L (3.5-5.1); Protein, Total 8.1 g/dL (6.4-8.2); Sodium Level 138 mmol/L (136-145)
--- NOTE | 2021-11-20 18:30 | CT_ITS ---
STUDY: CT ABDOMEN AND PELVIS WITH CONTRAST REASON FOR EXAM: Male, 66 years old. Abdominal pain RADIATION DOSAGE (If Supplied By Facility): CTDIvol = ( 8.53 ) mGy, DLP = ( 368.22 ) mGycm TECHNIQUE: Transaxial images were obtained from the dome of the diaphragm to the symphysis pubis without oral contrast. IV 100mL Isovue-300 was administered. Sagittal and coronal images were reconstructed. Individualized dose optimization techniques were used for this CT. COMPARISON: None. FINDINGS: The visualized lung bases are unremarkable. The visualized portions of the heart are within normal limits. Normal liver. Normal gallbladder and extrahepatic biliary system. Normal spleen. Normal pancreas. Normal bilateral adrenal glands. Normal right kidney. Normal left kidney. Normal visualized stomach. Normal small intestine. There are multiple colonic diverticula consistent with diverticulosis. The appendix is visualized and appears normal. Normal abdominal aorta. Normal inferior vena cava. Normal retroperitoneum. Normal urinary bladder. There is enlargement of the prostate gland. There is a right-sided inguinal hernia containing adipose tissue. Normal osseous structures. CT/Abdomen/Pelvis W IV Cont ONLY IMPRESSION: No acute intra-abdominal process is identified. Prominent fat-containing right inguinal hernia. Diverticulosis. Evidence of prior hernia repair. Electronically Signed: Abhilash Root MD at 19:12 EDT ,
[2021-11-20 19:47] VITALS: BP 122/82; PULSE 92; RESP 15; O2SAT 99
[2021-11-20 19:54] LABS: Bacteria 0 SEEN /hpf (None Seen); Mucous, Urine 0 SEEN /hpf (<or=2+); Red Blood Cells-Urine 0 SEEN /hpf (0-5); Squamous Epithelial Cells - UA 0 SEEN /hpf (0-5)
[2021-11-20 20:01] LABS: Color, Urine Yellow (Yellow); Glucose, Dipstick Normal (Normal); Ketone-Dipstick Negative (Negative); Leukocyte Esterase-Dipstick 25 /ul (Negative); Nitrite-Dipstick Negative (Negative); Occult Blood-Urine 10 /ul (Negative); Protein-Dipstick 30 mg/dl (Negative); Urine Bilirubin Dipstick Negative (Negative); Urine Clarity Clear (Clear); Urine Urobilinogen Normal (Normal); Urine pH 6.5 (5.0 - 8.0)
[2021-11-20 20:11] LABS: White Blood Cells 0-5 SEEN /hpf (0-5)
--- NOTE | 2021-11-20 23:16 | ED.VIS.GI ---
HPI HPI - GI History of Present Illness Chief Complaint: Nausea/Vomiting/Diarrhea Narrative Narrative: 66-year-old male with nausea and vomiting with diarrhea. He states he has had diarrhea for 1 month. No recent antibiotics use. No fever or chills. No black or bloody stools. Patient states the nausea developed today. Patient states that he does drink but only has 2 shots per day of vodka. Patient is an everyday drinker. He describes diffuse crampy abdominal pain. No urinary complaints. [facility] Medical History Alcohol use Arthritis Atrial fibrillation Back pain History of echocardiogram HTN (hypertension) Hypertension Loss of hearing Shortness of breath on exertion Smoker Tachycardia Wears glasses Home Medications aspirin 81 mg tablet,delayed release 81 mg PO DAILY 06/25/21 [History Last Taken Unknown] cetirizine 10 mg tablet 10 mg PO DAILY 06/25/21 [History Last Taken Unknown] dorzolamide 22.3 mg-timolol 6.8 mg/mL eye drops 1 drp OPHTHALMIC (EYE) BID 06/25/21 [History Last Taken Unknown] fluticasone propionate 50 mcg/actuation nasal spray,suspension 1 spray INTRANASAL DAILY 06/25/21 [History Last Taken Unknown] latanoprost 0.005 % eye drops 1 drp OPHTHALMIC (EYE) QPM 06/25/21 [History Last Taken Unknown] lisinopril 20 mg tablet 20 mg PO DAILY 06/25/21 [History Last Taken 07/02/21 07:00] mecobalamin (vitamin B12) 5,000 mcg disintegrating tablet 5,000 mcg PO DAILY 06/25/21 [History Last Taken Unknown] multivitamin 1 tab PO DAILY 06/25/21 [History Last Taken Unknown] omeprazole 40 mg PO DAILY #60 cap 07/02/21 [Rx Last Taken Unknown] sucralfate [Carafate] 1 g PO ACHS #90 tab 07/02/21 [Rx Last Taken Unknown] Allergy/AdvReac Type Severity Reaction Status Date / Time No Known Allergies Allergy Verified 11/20/21 17:32 Family History Father Colon cancer Mother Diabetes Surgical History History of cardiac catheterization History of eye surgery History of hernia repair Social History Smoking Status: Current every day smoker tobacco type: cigarettes Tobacco: How many years used: 42 ROS ROS ED Constitutional Constitutional ED: Denies chills or fever(s) ENT ENT ED: Denies rhinorrhea or sore throat Cardiovascular Cardiovascular: Denies chest pain or palpitations Respiratory/Chest Respiratory/Chest: Denies cough or dyspnea Gastrointestinal Gastrointestinal: Reports abdominal pain, diarrhea, nausea and vomiting Genitourinary Genitourinary ED: Denies dysuria or hematuria Musculoskeletal Musculoskeletal: Denies arthralgias or myalgias Integumentary Denies rash Neurologic Neurologic: Denies headache(s) Psychiatric Psychiatric: Denies anxiety or depression Endocrine Endocrinology: Denies polydipsia or polyuria EXAM Physical Exam Const Vital Signs: 11/20/21 17:27 11/20/21 19:47 Temperature 98.1 F Temperature Source Temporal Pulse Rate 94 92 Respiratory Rate 20 H 15 Blood Pressure 141/104 H 122/82 H Blood Pressure Mean 116 95 Pulse Ox 96 99 Oxygen Delivery Method Room Air Room Air Positive well nourished General Appearance ED: NAD; Negative for pallor HEENT normocephalic and atraumatic Eyes PERRL and EOMs intact bilaterally General Eye ED: Negative for pale conjunctiva or scleral icterus Resp normal respiratory effort and clear to auscultation bilaterally Cardio regular rate and regular rhythm GI GI Narrative: Generalized tenderness. Abdomen nonperitoneal. Palpation: soft Back/Spine no CVA tenderness Neuro Sensorium / Orientation: oriented to person, oriented to place and oriented to time Psych mental status grossly normal Skin General Skin Exam: Negative for jaundice or pallor Lesions: no lesions Rashes: no rashes MDM MDM MDM Narrative Medical decision making narrative: Patient presenting with nausea, vomiting, or diarrhea. The diarrhea has been a month long. The nausea is new. Patient stating was having diffuse crampy abdominal pain but does not have any abdominal pain currently. His abdominal exam is benign. Patient given Zofran for nausea. Lab work obtained shows a normal CBC. Coagulation studies normal. AST and ALT are slightly elevated however bilirubin is normal. Renal function electrolytes are normal. Urinalysis negative for infection. EtOH 335. This is inconsistent with patient's history of 2 shots per day. Lipase is 636. He does not have gina epigastric pain. This is not 3 times the upper limit of normal. CT of the abdomen pelvis is obtained and does not show anything acute. There are no changes of the pancreas. Patient is feeling improved. I discussed with him his elevated alcohol level. He states he wishes to go home now. I requested that he find a sober ride and he did. Patient discharged home in stable condition. Impression: 1. Abdominal pain 2. Nausea vomiting 3. EtOH abuse 4. Diarrhea 5. Elevated lipase Lab Data Attestation: I reviewed the patient's lab results. Labs: Laboratory Results - last 24 hr 11/20/21 11/20/21 11/20/21 17:32 17:32 17:32 WBC 6.6 RBC 3.91 L Hgb 13.7 Hct 39.8 L MCV 101.8 H MCH 35.0 H MCHC 34.4 RDW Std Deviation 56.6 H RDW Coeff of Jane 15.1 H Plt Count 240 MPV 9.8 Immature Gran % (Auto) 0.300 Neut % (Auto) 54.6 Lymph % (Auto) 23.0 Stevens % (Auto) 15.5 H Eos % (Auto) 5.2 H Baso % (Auto) 1.4 H Absolute Neuts (auto) 3.6 Absolute Lymphs (auto) 1.51 Nucleated RBC % 0 PT 11.7 INR 0.9 Sodium 138 Potassium 3.5 Chloride 101 Carbon Dioxide 31.0 Anion Gap 6 BUN 10 Creatinine 0.98 Estim Creat Clear Calc 73.46 Est GFR (MDRD) Af Amer 98 Est GFR (MDRD) Non-Af 81 BUN/Creatinine Ratio 10.2 Glucose 161 H Calcium 9.2 Total Bilirubin 0.20 Direct Bilirubin 0.09 AST 78 H ALT 82 H Alkaline Phosphatase 75 Total Protein 8.1 Albumin 4.1 Globulin 4.0 Lipase 636 H Urine Color Urine Clarity Urine pH Ur Specific [place] Urine Protein Urine Glucose (UA) Urine Ketones Urine Occult Blood Urine Nitrite Urine Bilirubin Urine Urobilinogen Ur Leukocyte Esterase Urine RBC Urine WBC Ur Squamous Epith Cells Urine Bacteria Urine Mucus Ethyl Alcohol 11/20/21 11/20/21 17:32 19:45 WBC RBC Hgb Hct MCV MCH MCHC RDW Std Deviation RDW Coeff of Jane Plt Count MPV Immature Gran % (Auto) Neut % (Auto) Lymph % (Auto) Stevens % (Auto) Eos % (Auto) Baso % (Auto) Absolute Neuts (auto) Absolute Lymphs (auto) Nucleated RBC % PT INR Sodium Potassium Chloride Carbon Dioxide Anion Gap BUN Creatinine Estim Creat Clear Calc Est GFR (MDRD) Af Amer Est GFR (MDRD) Non-Af BUN/Creatinine Ratio Glucose Calcium Total Bilirubin Direct Bilirubin AST ALT Alkaline Phosphatase Total Protein Albumin Globulin Lipase Urine Color Yellow Urine Clarity Clear Urine pH 6.5 Ur Specific [place] 1.010 Urine Protein 30 H Urine Glucose (UA) Normal Urine Ketones Negative Urine Occult Blood 10 H Urine Nitrite Negative Urine Bilirubin Negative Urine Urobilinogen Normal Ur Leukocyte Esterase 25 H Urine RBC 0 SEEN Urine WBC 0-5 SEEN Ur Squamous Epith Cells 0 SEEN Urine Bacteria 0 SEEN Urine Mucus 0 SEEN Ethyl Alcohol 335.0 H* Radiography Diagnostic Testing: Clinical Impression(s) from Imaging Studies Abdomen/Pelvis CT 11/20/21 18:30 IMPRESSION: No acute intra-abdominal process is identified. Prominent fat-containing right inguinal hernia. Diverticulosis. Evidence of prior hernia repair. Electronically Signed: Abhilash Root MD at 19:12 EDT , Discharge Plan Triage Chief Complaint: Nausea/Vomiting/Diarrhea ED Provider: Yoel Rush Dx/Rx/DC Orders Clinical Impression: ETOH abuse, Elevated lipase Instructions: ED Diet for Vomiting or ..., ED Alcohol Intoxication Prescriptions: No Action aspirin 81 mg tablet,delayed release (DR/EC) 81 mg PO DAILY RF: 0 multivitamin Tablet 1 tab PO DAILY RF: 0 dorzolamide-timolol 22.3-6.8 mg/mL drops 1 drp ophthalmic (eye) BID RF: 0 fluticasone propionate [Flonase Allergy Relief] 50 mcg/actuation spray,suspension 1 spray intranasal DAILY RF: 0 latanoprost 0.005 % drops 1 drp ophthalmic (eye) QPM RF: 0 lisinopril 20 mg tablet 20 mg PO DAILY RF: 0 mecobalamin (vitamin B12) 5,000 mcg tablet,disintegrating 5,000 mcg PO DAILY RF: 0 cetirizine [Zyrtec] 10 mg tablet 10 mg PO DAILY RF: 0 omeprazole 40 mg capsule,delayed release(DR/EC) 40 mg PO DAILY Qty: 60 RF: 2 sucralfate [Carafate] 1 gram tablet 1 g PO ACHS Qty: 90 RF: 0 Primary Care Provider: [facility] Isabel Hernandez Referrals: [facility],Isabel Francis [Primary Care Provider] - Disposition Disposition: Home, Self Care Discharge Date/Time: 11/20/21 22:04
== END 2021-11-20 22:04 | disposition home or self-care (01) ==
PROVIDERS: Emergency Provider Student in an Organized Health Care Education/Training Program; Visit Provider Student in an Organized Health Care Education/Training Program
DX: R11.2 Nausea with vomiting, unspecified (principal); I48.91 Unspecified atrial fibrillation; R10.84 Generalized abdominal pain; R74.8 Abnormal levels of other serum enzymes; F10.10 Alcohol abuse, uncomplicated; Y90.8 Blood alcohol level of 240 mg/100 ml or more; R19.7 Diarrhea, unspecified; F17.210 Nicotine dependence, cigarettes, uncomplicated; I10 Essential (primary) hypertension; Z79.82 Long term (current) use of aspirin; Z79.899 Other long term (current) drug therapy
CPT/HCPCS: 74177; 80048; 80076; 81001; 82077; 83690; 85025; 85610; 96360; 99285; J7030; Q9967; A4216

== ENCOUNTER 2021-12-09 18:06 | Emergency (ER) | payer SELFPAY ==
[2021-12-09 18:09] VITALS: BP 137/84; PULSE 101; RESP 18; TEMP 37.3; O2SAT 96; BMI 28.8
[2021-12-09 18:11] VITALS: O2SAT 95
--- NOTE | 2021-12-09 19:48 | CT_ITS ---
STUDY: CT BRAIN WITHOUT CONTRAST REASON FOR EXAM: Male, 66 years old. Pain TECHNIQUE: Transaxial CT imaging of the brain was performed without administration of intravenous contrast material. Individualized dose optimization techniques were used for this CT. COMPARISON: 07/17/2021 MRI FINDINGS: Normal calvarium. Normal soft tissues. Normal size ventricles and extra-axial spaces for the patient''s age. There are areas of decreased attenuation within the white matter tracts of the supratentorial brain, consistent with microvascular disease changes. Normal basal ganglia and thalami. Normal brainstem. Normal cerebellum. There is no intracranial hemorrhage. There are no findings of an acute ischemic infarction. There are calcifications noted in the distal vertebral arteries. There are calcifications noted in the cavernous carotid arteries. This is consistent for atherosclerotic disease. Normal visualized paranasal sinuses. ASPECTS 10 CT/Brain/Head without Contrast IMPRESSION: There are no acute intracranial findings. Electronically Signed: Fausto Shi MD at 20:06 EDT ,
[2021-12-09 20:52] VITALS: BP 129/87; PULSE 108; RESP 18; O2SAT 96
[2021-12-09 21:07] VITALS: BP 135/71; PULSE 81; RESP 10; O2SAT 97
--- NOTE | 2021-12-09 22:55 | EDS_ITS ---
HPI History of Present Illness Chief Complaint: Fall Informant: patient Onset/Context/Timing Onset: Today Mechanism/Context: Fall Quality of Pain: Aching Location: Right side of head Worsened by: Nothing Relieved by: Nothing Associated Symptoms Associated Symptoms: Negative for Parasthesias, Weakness, Loss of function, Inability to ambulate, Loss of consciousness and Amnesia Narrative Narrative: Patient presents with head injury that occurred today. Patient fell and hit the right side of his head. Patient denies any loss of consciousness. Patient denies any paresthesias or weakness. Patient describes his pain as aching. Patient states nothing makes it better nothing makes it worse. EMS reports that the patient appeared to be intoxicated. Patient denies any alcohol or drug use to me. Patient admits to some nausea and vomiting. Patient admits to some shortness of breath. Patient denies any paresthesias or weakness. [facility] Medical History Alcohol use Arthritis Atrial fibrillation Back pain History of echocardiogram HTN (hypertension) Hypertension Loss of hearing Shortness of breath on exertion Smoker Tachycardia Wears glasses Home Medications aspirin 81 mg tablet,delayed release 81 mg PO DAILY 06/25/21 [History Last Taken Unknown] cetirizine 10 mg tablet 10 mg PO DAILY 06/25/21 [History Last Taken Unknown] dorzolamide 22.3 mg-timolol 6.8 mg/mL eye drops 1 drp OPHTHALMIC (EYE) BID 06/25/21 [History Last Taken Unknown] fluticasone propionate 50 mcg/actuation nasal spray,suspension 1 spray INTRANASAL DAILY 06/25/21 [History Last Taken Unknown] latanoprost 0.005 % eye drops 1 drp OPHTHALMIC (EYE) QPM 06/25/21 [History Last Taken Unknown] lisinopril 20 mg tablet 20 mg PO DAILY 06/25/21 [History Last Taken 07/02/21 07:00] mecobalamin (vitamin B12) 5,000 mcg disintegrating tablet 5,000 mcg PO DAILY 06/25/21 [History Last Taken Unknown] multivitamin 1 tab PO DAILY 06/25/21 [History Last Taken Unknown] omeprazole 40 mg PO DAILY #60 cap 07/02/21 [Rx Last Taken Unknown] sucralfate [Carafate] 1 g PO ACHS #90 tab 07/02/21 [Rx Last Taken Unknown] Allergy/AdvReac Type Severity Reaction Status Date / Time No Known Allergies Allergy Verified 12/09/21 18:08 Family History Father Colon cancer Mother Diabetes Surgical History History of cardiac catheterization History of eye surgery History of hernia repair Social History Smoking Status: Current every day smoker tobacco type: cigarettes Tobacco: How many years used: 42 ROS ROS ED Constitutional Constitutional ED: Denies chills or fever(s) Eyes Eyes: Denies blurry vision or change in vision ENT ENT ED: Denies rhinorrhea or sore throat Cardiovascular Cardiovascular: Denies chest pain or palpitations Respiratory/Chest Respiratory/Chest: Reports dyspnea; Denies cough Gastrointestinal Gastrointestinal: Reports nausea and vomiting Genitourinary Genitourinary ED: Denies dysuria or hematuria Musculoskeletal Musculoskeletal: Denies back pain or neck pain Integumentary Denies abscess or rash Neurologic Neurologic: Denies headache(s) or weakness Allergic/Immunologic Allergic/Immunologic ED: Denies mouth swelling or urticaria EXAM Physical Exam Const Vital Signs: 12/09/21 18:09 12/09/21 18:11 12/09/21 20:52 Temperature 99.1 F Temperature Source Temporal Pulse Rate 101 H 108 H Respiratory Rate 18 18 Respiratory Effort Normal Blood Pressure 137/84 H 129/87 H Blood Pressure Mean 101 101 Pulse Ox 96 95 96 Oxygen Delivery Method Room Air Room Air Room Air 12/09/21 21:07 Temperature Temperature Source Pulse Rate 81 Respiratory Rate 10 L Respiratory Effort Blood Pressure 135/71 H Blood Pressure Mean 92 Pulse Ox 97 Oxygen Delivery Method Room Air Positive well nourished and well developed General Appearance ED: well developed and NAD Eyes PERRL and EOMs intact bilaterally Neck full ROM General: Negative for tenderness Resp normal respiratory effort and clear to auscultation bilaterally Cardio regular rhythm Rate: regular rate GI non-tender Palpation: soft Back/Spine no thoracic nor lumbar tenderness Neuro oriented x3, CN's II-XII intact bilaterally, moves all extremities, no focal motor deficits and no sensory deficits noted Sensorium / Orientation: alert Psych mental status grossly normal MDM MDM MDM Narrative Medical decision making narrative: CT scan of the brain was obtained. There is no acute intracranial abnormality. This was interpreted by the radiologist and reviewed by myself. Patient was advised of his findings. Patient was given head injury instructions. Patient was instructed to follow-up with his primary care physician in 5 to 7 days. Patient understood and was agreeable with the plan. All questions were answered. Radiography Diagnostic Testing: Clinical Impression(s) from Imaging Studies Brain CT 12/09/21 19:48 IMPRESSION: There are no acute intracranial findings. Electronically Signed: Fausto Shi MD at 20:06 EDT , Discharge Plan Triage Chief Complaint: Fall ED Provider: Emmanuel Kaba Dx/Rx/DC Orders Clinical Impression: Closed head injury, HTN (hypertension) Instructions: ED Head Injury (Adult) Prescriptions: No Action aspirin 81 mg tablet,delayed release (DR/EC) 81 mg PO DAILY RF: 0 multivitamin Tablet 1 tab PO DAILY RF: 0 dorzolamide-timolol 22.3-6.8 mg/mL drops 1 drp ophthalmic (eye) BID RF: 0 fluticasone propionate [Flonase Allergy Relief] 50 mcg/actuation spray,suspension 1 spray intranasal DAILY RF: 0 latanoprost 0.005 % drops 1 drp ophthalmic (eye) QPM RF: 0 lisinopril 20 mg tablet 20 mg PO DAILY RF: 0 mecobalamin (vitamin B12) 5,000 mcg tablet,disintegrating 5,000 mcg PO DAILY RF: 0 cetirizine [Zyrtec] 10 mg tablet 10 mg PO DAILY RF: 0 omeprazole 40 mg capsule,delayed release(DR/EC) 40 mg PO DAILY Qty: 60 RF: 2 sucralfate [Carafate] 1 gram tablet 1 g PO ACHS Qty: 90 RF: 0 [facility] Care [facility] - [facility]-5 Days Disposition Disposition: Home, Self Care Discharge Date/Time: 12/09/21 21:29
== END 2021-12-09 21:29 | disposition home or self-care (01) ==
PROVIDERS: Emergency Provider Emergency Medicine; Visit Provider Emergency Medicine
DX: S09.90XA Unspecified injury of head, initial encounter (principal); I10 Essential (primary) hypertension; W19.XXXA Unspecified fall, initial encounter; F17.210 Nicotine dependence, cigarettes, uncomplicated; Z79.82 Long term (current) use of aspirin; Z79.899 Other long term (current) drug therapy
CPT/HCPCS: 70450; 99285

== ENCOUNTER 2021-12-22 18:51 | Emergency (ER) | payer SELFPAY ==
[2021-12-22 18:51] VITALS: BP 126/97; PULSE 117; RESP 16; TEMP 36.9; O2SAT 95; BMI 20.5
[2021-12-22 18:57] VITALS: BMI 20.5
--- NOTE | 2021-12-22 19:19 | CT_ITS ---
STUDY: CT BRAIN WITHOUT CONTRAST REASON FOR EXAM: Male, 66 years old. injury Fall, laceration to forehead. RADIATION DOSAGE (If Supplied By Facility): CTDIvol = ( 44.99 ) mGy, DLP = ( 846.73 ) mGycm TECHNIQUE: Transaxial CT imaging of the brain was performed without administration of intravenous contrast material. Individualized dose optimization techniques were used for this CT. COMPARISON: 12/09/2021 FINDINGS: Mild soft tissue swelling of the frontal scalp. Normal calvarium. Normal size ventricles and extra-axial spaces for the patient''s age. Normal white matter tracts of the cerebral hemispheres. Normal basal ganglia and thalami. Normal brainstem. Normal cerebellum. There is no intracranial hemorrhage. There are no findings of an acute ischemic infarction. Normal visualized paranasal sinuses. CT/Brain/Head without Contrast IMPRESSION: No acute intracranial hemorrhage or mass effect. Electronically Signed: Kevin Davidson MD ([place]) at 19:57 EDT ,
--- NOTE | 2021-12-22 19:31 | EX.ED.DYSGE1 ---
HPI History of Present Illness Chief Complaint: Head Injury Informant: patient and EMS Narrative Narrative: Patient is brought to the emergency department with a head laceration from a fall that occurred in his bathroom. Patient states that he fell down striking his head. No reported loss of consciousness. EMS notes unequal pupils. Reportedly this has been a months long issue. He has had prior CT and ophthalmologic examination. The patient denies any neck or back pain. [facility] Medical History Alcohol use Arthritis Atrial fibrillation Back pain History of echocardiogram HTN (hypertension) Hypertension Loss of hearing Shortness of breath on exertion Smoker Tachycardia Wears glasses Home Medications dorzolamide 22.3 mg-timolol 6.8 mg/mL eye drops 1 drp OPHTHALMIC (EYE) BID 06/25/21 [History Last Taken Unknown] latanoprost 0.005 % eye drops 1 drp OPHTHALMIC (EYE) QPM 06/25/21 [History Last Taken 12/21/21] multivitamin 1 tab PO DAILY 06/25/21 [History Last Taken Unknown] Allergy/AdvReac Type Severity Reaction Status Date / Time No Known Allergies Allergy Verified 12/09/21 18:08 Family History Father Colon cancer Mother Diabetes Surgical History History of cardiac catheterization History of eye surgery History of hernia repair Social History Smoking Status: Current every day smoker tobacco type: cigarettes Tobacco: How many years used: 42 ROS ROS ED Constitutional Constitutional ED: Denies chills, fever(s) or weight loss Eyes Eyes: Denies change in vision or diplopia ENT ENT ED: Denies ear pain, rhinorrhea or sore throat Cardiovascular Cardiovascular: Denies chest pain, orthopnea, palpitations or racing heartbeat Respiratory/Chest Respiratory/Chest: Denies cough, dyspnea or orthopnea Gastrointestinal Gastrointestinal: Denies abdominal pain, diarrhea, nausea or vomiting Genitourinary Genitourinary ED: Denies dysuria, hematuria or urinary frequency Musculoskeletal Musculoskeletal: Denies arthralgias, back pain, myalgias or neck pain Integumentary Denies abscess or rash Neurologic Neurologic: Reports headache(s); Denies weakness Psychiatric Psychiatric: Denies anxiety, depression, suicidal ideation or suicidal thoughts Endocrine Endocrinology: Denies polydipsia, polyphagia or polyuria Allergic/Immunologic Allergic/Immunologic ED: Denies mouth swelling, tongue swelling or urticaria EXAM Physical Exam Const Vital Signs: 12/22/21 18:51 12/22/21 18:58 12/22/21 20:18 Temperature 98.4 F 98.5 F Temperature Source Oral Oral Pulse Rate 117 H 111 H Respiratory Rate 16 20 H Respiratory Effort Normal Non-Labored Respiratory Depth Normal Respiratory Pattern Normal Blood Pressure 126/97 H Blood Pressure Mean 106 Pulse Ox 95 98 Oxygen Delivery Method Room Air Room Air Room Air Positive well nourished and well developed General Appearance ED: well developed HEENT Reports normocephalic, head/scalp atraumatic and moist mucous membranes HEENT Narrative: There is a 3 cm lightning bolt laceration to the mid forehead. trauma Eyes PERRL and EOMs intact bilaterally Neck no lymphadenopathy, supple and no JVD Resp normal respiratory effort and clear to auscultation bilaterally Cardio regular rate, regular rhythm and no murmurs GI normal to inspection, nondistended, normoactive bowel sounds and non-tender Palpation: soft Back/Spine no CVA tenderness and normal ROM Extremity normal to inspection General Extremety ED: Negative for edema General Extremity: Negative for edema Neuro oriented x3 and CN's II-XII intact bilaterally Neuro Narrative: While the patient's orientation is not impaired he does have some slurred speech and smells of alcohol Sensorium / Orientation: alert Motor Exam: strength 5/5 throughout Psych mental status grossly normal Mood & Affect: Negative for depressed or tearful Skin no rashes or lesions noted and no wounds MDM MDM MDM Narrative Medical decision making narrative: CT the brain was negative. Patient was reexamined. No other injuries noted. Wound was locally anesthetized using 1% lidocaine washed with Shur-Clens and explored. No foreign bodies noted. Wound was closed using 4 simple interrupted 5-0 Ethilon sutures. Tetanus is updated with Adacel. He will be discharged home Radiography Diagnostic Testing: Clinical Impression(s) from Imaging Studies Brain CT 12/22/21 19:19 IMPRESSION: No acute intracranial hemorrhage or mass effect. Electronically Signed: Kevin Davidson MD ([place]) at 19:57 EDT , Discharge Plan Triage Chief Complaint: Head Injury ED Provider: Himanshu Lazo Dx/Rx/DC Orders Clinical Impression: Facial laceration, Fall Instructions: ED Laceration: All Closures Prescriptions: No Action multivitamin Tablet 1 tab PO DAILY RF: 0 dorzolamide-timolol 22.3-6.8 mg/mL drops 1 drp ophthalmic (eye) BID RF: 0 latanoprost 0.005 % drops 1 drp ophthalmic (eye) QPM RF: 0 Primary Care Provider: Ellyn Beaulieu Referrals: Ellyn Beaulieu, [facility] [Primary Care Provider] - 5 Days for suture removal Disposition Disposition: Home, Self Care
[2021-12-22 20:18] VITALS: PULSE 111; RESP 20; TEMP 36.9; O2SAT 98
[2021-12-22] MEDS: Lidocaine 1% (20 ml mdv) 20 ML Vial INFILT (20:20)
[2021-12-22] MEDS: Diphth,Pertuss(Acell),Tet Vac 0.5 ML Vial IM (20:21)
[2021-12-22 20:45] VITALS: BP 122/80
== END 2021-12-22 20:46 | disposition home or self-care (01) ==
PROVIDERS: Emergency Provider Emergency Medicine; PCP Nurse Practitioner Adult Health; Visit Provider Emergency Medicine
DX: S01.81XA Laceration without foreign body of other part of head, initial encounter (principal); W19.XXXA Unspecified fall, initial encounter; F17.210 Nicotine dependence, cigarettes, uncomplicated
CPT/HCPCS: 12013; 70450; 90715; 99284

== ENCOUNTER 2022-03-21 16:09 | Inpatient (IN) | payer MEDICARE, SELFPAY ==
[2022-03-21] VITALS (14 sets, daily range): BP systolic 113–190; BP diastolic 75–106; PULSE 72–117; RESP 10–24; TEMP 36.2–37.1; O2SAT 80–98; BMI 21.7; BMI 21.8
--- NOTE | 2022-03-21 16:29 | EKG12_ITS ---
Test Reason : OVERDOSE Blood Pressure : / mmHG Vent. Rate : 103 BPM Atrial Rate : 103 BPM P-R Int : 154 ms QRS Dur : 076 ms QT Int : 376 ms P-R-T Axes : 067 051 047 degrees QTc Int : 492 ms Sinus tachycardia Otherwise normal ECG Confirmed by FRANCISCO HOFFMAN, ALYCIA ([id number]), online editor MAURICE KAMARA ([id number]) on 03/24/2022 1:00:44 PM Referred By: Confirmed By:ALYCIA SINGH MD
--- NOTE | 2022-03-21 16:32 | CM.ED ---
ALECIA Note Referral Source: [facility] ALECIA met with patient. His last drink was yesterday. Patient said that his was concerned about him. Patient said that he has never had detox before. Patient said that he drinks a couple of beers a day and 4 shots of vodka. Patient said that he did not drink today as he was out of vodka and I am not getting anymore'. Patient said he came to the ED to get rid of the shakes. Patient said that he has learned his lesson. Patient said that he is not interested in the RAMP program. ALECIA offered information on outpatient AOD programming through [facility] and patient declined. ALECIA updated RN and MD. Plan: To be Determined
--- NOTE | 2022-03-21 17:00 | EDS_ITS ---
HPI History of Present Illness Chief Complaint: Substance Abuse Informant: patient and spouse/S.O. Narrative Narrative: 66-year-old male presenting to the emergency room with tremors. Patient states that he drinks too much alcohol decided not to have any alcohol today. He states that he is shaking. He denies any hallucinations. He notes that he is thinking slowly. He states he does not want to be admitted into the ramp program he just wants some medicine that will help him stop shaking. Patient was asked how much he drinks and he said a beer and 4 ounces of vodka a day. I told him that I do not believe that based on his physical symptoms. His arrives and is irate that he is shaking and nauseous and hypertensive. states that she does not understand why we are not doing things for him. I tried to calmly explained to her that the patient does not wish to stay for which she cuts me off and states no he is staying. Patient cannot tell me how much she really drinks but is estimated to half gallon of vodka a day. Patient cannot tell me why he wants to quit drinking. [facility] Medical History Alcohol use Arthritis Atrial fibrillation Back pain History of echocardiogram HTN (hypertension) Hypertension Loss of hearing Shortness of breath on exertion Smoker Tachycardia Wears glasses Home Medications dorzolamide 22.3 mg-timolol 6.8 mg/mL eye drops 1 drp ophthalmic (eye) BID 06/25/21 [History Last Taken Unknown] latanoprost 0.005 % eye drops 1 drp ophthalmic (eye) QPM 06/25/21 [History Last Taken 12/21/21] multivitamin 1 tab PO DAILY 06/25/21 [History Last Taken Unknown] Cymbalta Check with primary doctor 03/21/22 [History Last Taken Unknown] Allergy/AdvReac Type Severity Reaction Status Date / Time No Known Allergies Allergy Verified 03/21/22 16:12 Family History Father Colon cancer Mother Diabetes Surgical History History of cardiac catheterization History of eye surgery History of hernia repair Social History Smoking Status: Former smoker Tobacco: How many years used: 42 ROS ROS ED Constitutional Constitutional ED: Denies chills or weight loss Eyes Eyes: Denies change in vision or diplopia ENT ENT ED: Denies ear pain, rhinorrhea or sore throat Cardiovascular Cardiovascular: Denies chest pain, orthopnea, palpitations or racing heartbeat Respiratory/Chest Respiratory/Chest: Denies cough, dyspnea or orthopnea Gastrointestinal Gastrointestinal: Reports diarrhea and nausea; Denies abdominal pain or vomiting Genitourinary Genitourinary ED: Denies dysuria, hematuria or urinary frequency Musculoskeletal Musculoskeletal: Reports arthralgias; Denies myalgias Integumentary Reports other Details: sweating ; Denies abscess or rash Neurologic Neurologic: Reports other Details: tremor ; Denies headache(s) or weakness Psychiatric Psychiatric: Denies anxiety, depression, suicidal ideation or suicidal thoughts Endocrine Endocrinology: Denies polydipsia, polyphagia or polyuria Allergic/Immunologic Allergic/Immunologic ED: Denies mouth swelling, tongue swelling or urticaria EXAM Physical Exam Const Vital Signs: 03/21/22 16:12 03/21/22 16:25 Temperature 97.5 F L Temperature Source Temporal Pulse Rate 117 H 110 H Respiratory Rate 24 H Blood Pressure 190/106 H 163/102 H Blood Pressure Mean 134 122 Pulse Ox 98 Oxygen Delivery Method Room Air Positive well nourished and well developed General Appearance ED: well developed HEENT Reports normocephalic, head/scalp atraumatic and moist mucous membranes Eyes PERRL and EOMs intact bilaterally Neck no lymphadenopathy, supple and no JVD Resp normal respiratory effort and clear to auscultation bilaterally Cardio regular rhythm and no murmurs Rate: tachycardic GI normal to inspection, nondistended, normoactive bowel sounds and non-tender Palpation: soft Back/Spine no CVA tenderness and normal ROM Extremity normal to inspection General Extremety ED: Negative for edema General Extremity: Negative for edema Neuro CN's II-XII intact bilaterally Neuro Narrative: Patient has a tremor Sensorium / Orientation: alert, oriented to person, oriented to place and confused Motor Exam: strength 5/5 throughout Psych Mood & Affect: anxious; Negative for depressed or tearful Skin no rashes or lesions noted and no wounds Skin Narrative: Patient is diaphoretic MDM MDM MDM Narrative Medical decision making narrative: Patient received IV Ativan. EKG is tachycardia. We will obtain medical clearance labs. I will talk with the hospitalist about ICU placement. Lab Data Attestation: I reviewed the patient's lab results. Labs: Laboratory Results - last 24 hr 03/21/22 03/21/22 03/21/22 17:14 17:14 17:14 WBC 8.7 RBC 4.16 L Hgb 14.3 Hct 41.3 MCV 99.3 H MCH 34.4 H MCHC 34.6 RDW Std Deviation 50.1 H RDW Coeff of Jane 13.7 Plt Count 255 MPV 9.7 Immature Gran % (Auto) 0.300 Neut % (Auto) 75.5 H Lymph % (Auto) 14.2 L [place] % (Auto) 8.9 Eos % (Auto) 0.3 Baso % (Auto) 0.8 Absolute Neuts (auto) 6.6 Absolute Lymphs (auto) 1.23 Nucleated RBC % 0 PT 12.4 INR 1.0 Sodium 140 Potassium 3.7 Chloride 100 Carbon Dioxide 28.0 Anion Gap 12 BUN 11 Creatinine 1.00 Estim Creat Clear Calc 73.58 Est GFR (MDRD) Af Amer 96 Est GFR (MDRD) Non-Af 79 BUN/Creatinine Ratio 11.0 Glucose 158 H Calcium 9.4 Total Bilirubin 0.60 AST 84 H ALT 89 H Alkaline Phosphatase 79 Total Protein 8.3 H Albumin 4.6 Globulin 3.7 Albumin/Globulin Ratio 1.2 Ethyl Alcohol 03/21/22 17:14 WBC RBC Hgb Hct MCV MCH MCHC RDW Std Deviation RDW Coeff of Jane Plt Count MPV Immature Gran % (Auto) Neut % (Auto) Lymph % (Auto) [place] % (Auto) Eos % (Auto) Baso % (Auto) Absolute Neuts (auto) Absolute Lymphs (auto) Nucleated RBC % PT INR Sodium Potassium Chloride Carbon Dioxide Anion Gap BUN Creatinine Estim Creat Clear Calc Est GFR (MDRD) Af Amer Est GFR (MDRD) Non-Af BUN/Creatinine Ratio Glucose Calcium Total Bilirubin AST ALT Alkaline Phosphatase Total Protein Albumin Globulin Albumin/Globulin Ratio Ethyl Alcohol < 3.0 EKG Initial EKG: Attestation: I personally reviewed and interpreted this EKG as follows: Comments: Sinus tachycardia with a ventricular rate of 103 bpm Critical Care Time Critical Care Time: Yes Critical care time (excluding procedures): 30-74 minutes (35 min), Including time spent:, Discussing w/Patient &/or Family/Brand Protection Manager, Discussing w/Consultants, Arranging Admission or Transfer and Performing Direct Patient Care at Bedside Discharge Plan Dx/Rx/DC Orders Clinical Impression: Atrial fibrillation, HTN (hypertension), DTs (delirium tremens), Alcoholism Disposition Disposition: Acute Care Hospital [facility]
--- NOTE | 2022-03-21 17:21 | NURSING ---
DR EMIL WELLINGTON
--- NOTE | 2022-03-21 17:22 | CM.ED ---
advised that patient reports he wants detox (RAMP) program. ALECIA met with patient and his . Reviewed the Detox program rules which include no outside food, no visitors, no phones and personal items locked up. Reviewed that addiction therapist/wastewater treatment supervisor will follow up with patient tomorrow. Patent verbalized agreement to the RAMP program rules and desire for detox. ALECIA called and left voice mail for Luke advising her of patient desire for detox. Plan: KATLYN OCONNOR
[2022-03-21] MEDS: LORazepam 2 MG/ML Syringe 1 MG IV (17:23)
[2022-03-21] MEDS: Ondansetron 4 MG/2 ML Vial IV (17:23)
[2022-03-21 17:25] LABS: Absolute Lymphocyte Count 1.23 X10^3/uL (0.83-4.51); Absolute Neutrophil Count 6.6 X10^3/uL (2.0-7.7); Basophil# 0.07 X10^3/uL; Basophil% 0.8 % (0-1); Eosinophil# 0.03 X10^3/uL; Eosinophils% 0.3 % (0-5); Hematocrit 41.3 % (40-54); Hemoglobin 14.3 g/dL (13.0-16.5); Lymphocyte # 1.23 X10^3/ul (0.83-4.51); Lymphocyte % 14.2 % (19-41); Mean Corp Hgb Conc 34.6 g/dL (32-36); Mean Corpuscular Hgb 34.4 pg (27.0-32.0); Mean Corpuscular Volume 99.3 fL (80-94); Mean Platelet Vol. 9.7 fl (6.2-12.0); Monocyte# 0.77 X10^3/uL; Monocyte% 8.9 % (0-10); NRBC Flagged by Analyzer 0 % (0-5); Neutrophil # 6.56 X10^3/uL (2.7-7.7); Neutrophil % 75.5 % (47-70); Platelet Count 255 K/mm3 (150-450); RBC Distribution Width CV 13.7 % (11.6-14.6); RBC Distribution Width SD 50.1 fl (35.1-43.9); Red Blood Count 4.16 M/mm3 (4.6-6.2); White Blood Count 8.7 K/mm3 (4.4-11.0)
[2022-03-21 17:31] LABS: Prothrombin Time (Protime)PT. 12.4 SECONDS (11.7-14.9)
[2022-03-21 17:39] LABS: ALB/GLOB Ratio 1.2 RATIO (0.9-2.4); AST(SGOT) 84 U/L (15-37); Alanine Aminotransfer ALT/SGPT 89 U/L (16-61); Albumin, Serum 4.6 g/dL (3.2-5.0); Alkaline Phosphatase 79 U/L (45-117); Anion Gap 12 (5-15); BUN 11 mg/dL (7-18); Calcium,Total 9.4 mg/dL (8.5-10.1); Chloride 100 mmol/L (98-107); EST Glomerular Filtration Rate 79 mL/min (>60); Est Glom Filt Rate - Afr Amer 96 mL/min (>60); Estimated Creatinine Clearance 73.58 ml/min; Globulin 3.7 g/dL (2.2-4.2); Glucose 158 mg/dL (74-106); Potassium 3.7 mmol/L (3.5-5.1); Protein, Total 8.3 g/dL (6.4-8.2); Sodium Level 140 mmol/L (136-145)
--- NOTE | 2022-03-21 17:42 | NURSING ---
ICU JOPPERI DELIRIUM TREMORS
--- NOTE | 2022-03-21 17:47 | PCM.HP.STD ---
[facility] - General General Date of Service: 03/21/22 Chief Complaint: Requesting treatment for alcohol withdrawal HPI Narrative Freya LITTLE, is a 66 M who presents presents with tremulousness. Patient initially said that his last drink of alcohol was yesterday but was actually sometime today. Patient drinks about a quarter of a bottle of vodka per day plus beers. Patient has never intentionally sought abstinence from alcohol before. Patient states that he is tired of being tremulous. Patient states that he drinks to take away the tremors. Patient was profoundly diaphoretic in the emergency room and patient eventually agreed to engaging in the [facility] program after initial hesitation. Patient lives with his significant other who also drinks but not to the level that he does. She is open to quitting alcohol consumption. FORMERLY [facility] Medical History Alcohol use Arthritis Atrial fibrillation Back pain History of echocardiogram HTN (hypertension) Hypertension Loss of hearing Shortness of breath on exertion Smoker Tachycardia Wears glasses Home Medications dorzolamide 22.3 mg-timolol 6.8 mg/mL eye drops 1 drp ophthalmic (eye) BID 06/25/21 [History Last Taken Unknown] latanoprost 0.005 % eye drops 1 drp ophthalmic (eye) QPM 06/25/21 [History Last Taken 12/21/21] multivitamin 1 tab PO DAILY 06/25/21 [History Last Taken Unknown] Allergy/AdvReac Type Severity Reaction Status Date / Time No Known Allergies Allergy Verified 03/21/22 16:12 Family History Father Colon cancer Mother Diabetes Surgical History History of cardiac catheterization History of eye surgery History of hernia repair Social History Smoking Status: Former smoker Tobacco: How many years used: 42 ROS ROS Narrative Tremulousness, diaphoresis. All review of systems were negative except as mentioned above in the history of present illness and the other review of systems. Vital Signs Vital Signs Vital Signs: 03/21/22 16:12 03/21/22 16:25 Temperature 36.4 C L Temperature Source Temporal Pulse Rate 117 H 110 H Respiratory Rate 24 H Blood Pressure 190/106 H 163/102 H Blood Pressure Mean 134 122 Pulse Ox 98 Oxygen Delivery Method Room Air Weight Weight: 72.575 kg Body Mass Index (BMI) 21.7 Physical Exam Const Constitutional Narrative: Diaphoretic. She is awake and alert. Slow responses. Tremulous. HEENT normocephalic and head/scalp atraumatic Eyes Eyes Narrative: No icterus Resp normal respiratory effort, no retractions, no use of accessory muscles and clear to auscultation bilaterally Cardio regular rate, regular rhythm, S1 normal heart sound and S2 normal heart sound GI normal to inspection, nondistended, normoactive bowel sounds and soft to palpation GI Narrative: Hepatomegaly Extremity normal to inspection Results Lab / Micro Data Result Diagrams: 03/21/22 17:14 03/21/22 17:14 Labs: Laboratory Results - last 24 hr 03/21/22 17:14: WBC 8.7, RBC 4.16 L, Hgb 14.3, Hct 41.3, MCV 99.3 H, MCH 34.4 H, MCHC 34.6, RDW Std Deviation 50.1 H, RDW Coeff of Jane 13.7, Plt Count 255, MPV 9.7, Immature Gran % (Auto) 0.300, Neut % (Auto) 75.5 H, Lymph % (Auto) 14.2 L, [place] % (Auto) 8.9, Eos % (Auto) 0.3, Baso % (Auto) 0.8, Absolute Neuts (auto) 6.6, Absolute Lymphs (auto) 1.23, Nucleated RBC % 0 03/21/22 17:14: PT 12.4, INR 1.0 03/21/22 17:14: Sodium 140, Potassium 3.7, Chloride 100, Carbon Dioxide 28.0, Anion Gap 12, BUN 11, Creatinine 1.00, Estim Creat Clear Calc 73.58, Est GFR (MDRD) Af Amer 96, Est GFR (MDRD) Non-Af 79, BUN/Creatinine Ratio 11.0, Glucose 158 H, Calcium 9.4, Total Bilirubin 0.60, AST 84 H, ALT 89 H, Alkaline Phosphatase 79, Total Protein 8.3 H, Albumin 4.6, Globulin 3.7, Albumin/Globulin Ratio 1.2 Assessment & Plan Assessment/Plan (1) Alcohol withdrawal: PLAN: Patient clearly tremulous at this time. Last drink of alcohol was sometime today though smaller quantity than he normally takes. Patient still tremulous after receiving lorazepam. Patient has a high likelihood of further progression into delirium tremens. I feel its best to place the patient in the ICU and start him on a Precedex drip. If patient can remain stable and actually be taken off the Precedex and we can move him to a medical floor but his large quantity of alcohol consumption is very concerning. Thiamine folate Patient's drinks and she was not readily willing to throw away all the alcohol in the house. I told her to do so to help him maintain sobriety. She said that she will comply. I verified with the patient that the purpose of him being hospitalized is get him through his acute alcohol withdrawal but he will need to have ongoing follow-up and counseling as outpatient to help him with his alcoholism and keep him sober. Patient did agree that he would do that. PLAN: Plan VTE prophylaxis with enoxaparin Charges/Coding Visit Charges Inpatient E&M: 13799 Init Hosp L2
--- NOTE | 2022-03-21 17:51 | NURSING ---
ICU 1
[2022-03-21 17:56] LABS: Alcohol, Blood (Medical)-Serum < 3.0 mg/dL
--- NOTE | 2022-03-21 18:06 | ED.RN ---
Report called to ICU
[2022-03-21] MEDS: Dorzolamide HCL/Timolol 10 ml Bottle 1 DRP OPHTHALMIC (21:13)
[2022-03-21] MEDS: Latanoprost 0.005% 1 Bottle 1 DRP OPHTHALMIC (21:14)
[2022-03-21 21:48] LABS: Amphetamine Urine VISTA NEGATIVE (<1000 ng/mL); Barbiturate Urine VISTA NEGATIVE (< 200 ng/mL); Benzodiazepine Urine VISTA NEGATIVE (< 200 ng/mL); Cocaine Urine VISTA NEGATIVE (< 300 ng/mL); Ecstacy Urine VISTA NEGATIVE (< 500 ng/mL); Methadone Urine VISTA NEGATIVE (< 300 ng/mL); PCP Urine VISTA NEGATIVE (< 25 ng/mL); THC Urine VISTA NEGATIVE (< 50 ng/mL)
[2022-03-21 21:50] LABS: Vista UDS pH Range 6
[2022-03-22] VITALS (28 sets, daily range): BP systolic 106–176; BP diastolic 72–105; PULSE 64–100; RESP 10–20; TEMP 36.6–37.1; O2SAT 94–99
[2022-03-22 02:59] LABS: Absolute Lymphocyte Count 1.25 X10^3/uL (0.83-4.51); Absolute Neutrophil Count 3.1 X10^3/uL (2.0-7.7); Basophil# 0.03 X10^3/uL; Basophil% 0.6 % (0-1); Hematocrit 36.4 % (40-54); Hemoglobin 12.2 g/dL (13.0-16.5); Lymphocyte # 1.25 X10^3/ul (0.83-4.51); Lymphocyte % 24.7 % (19-41); Mean Corp Hgb Conc 33.5 g/dL (32-36); Mean Corpuscular Hgb 34.2 pg (27.0-32.0); Mean Platelet Vol. 9.8 fl (6.2-12.0); Monocyte# 0.58 X10^3/uL; Monocyte% 11.5 % (0-10); NRBC Flagged by Analyzer 0 % (0-5); Neutrophil # 3.09 X10^3/uL (2.7-7.7); Platelet Count 191 K/mm3 (150-450); RBC Distribution Width CV 13.7 % (11.6-14.6); RBC Distribution Width SD 51.8 fl (35.1-43.9); Red Blood Count 3.57 M/mm3 (4.6-6.2); White Blood Count 5.1 K/mm3 (4.4-11.0)
[2022-03-22 04:00] LABS: ALB/GLOB Ratio 1.1 RATIO (0.9-2.4); AST(SGOT) 54 U/L (15-37); Alanine Aminotransfer ALT/SGPT 72 U/L (16-61); Albumin, Serum 3.5 g/dL (3.2-5.0); Alkaline Phosphatase 64 U/L (45-117); Anion Gap 5 (5-15); BUN 14 mg/dL (7-18); Calcium,Total 8.3 mg/dL (8.5-10.1); Chloride 102 mmol/L (98-107); Creatinine, Serum 0.82 mg/dL (0.70-1.30); EST Glomerular Filtration Rate 99 mL/min (>60); Est Glom Filt Rate - Afr Amer 120 mL/min (>60); Estimated Creatinine Clearance 92.86 ml/min; Globulin 3.3 g/dL (2.2-4.2); Glucose 115 mg/dL (74-106); Protein, Total 6.8 g/dL (6.4-8.2); Sodium Level 138 mmol/L (136-145)
--- NOTE | 2022-03-22 06:52 | PN.HOSP_ITS ---
Subjective Subjective Feels better. Still tremulous. Denies hallucinations. Objective Data Objective Data Vital Signs: Vital Signs Temp Pulse Resp BP Pulse Ox O2 Del Method O2 Flow Rate 37.0 C 64 14 151/87 H 95 Nasal Cannula 2 03/22/22 00:00 03/22/22 06:00 03/22/22 06:00 03/22/22 06:00 03/22/22 06:00 03/22/22 06:00 03/22/22 06:00 Oxygen Flow Rate (L/min) 2 Oxygen Delivery Method Nasal Cannula Weight: 75.1 kg Body Mass Index (BMI) 21.8 Intake & Output: Intake and Output for Last 24 Hours 03/20/22 03/21/22 03/22/22 23:59 23:59 23:59 Intake Total 52.20 / 54.93 470.29 / 470.29 Output Total 250 / 250 Balance -197.80 / -195.07 470.29 / 470.29 Lab / Micro Data Result Diagrams: 03/22/22 02:50 03/22/22 02:50 Labs: Laboratory Results - last 24 hr 03/21/22 17:14: WBC 8.7, RBC 4.16 L, Hgb 14.3, Hct 41.3, MCV 99.3 H, MCH 34.4 H, MCHC 34.6, RDW Std Deviation 50.1 H, RDW Coeff of Jane 13.7, Plt Count 255, MPV 9.7, Immature Gran % (Auto) 0.300, Neut % (Auto) 75.5 H, Lymph % (Auto) 14.2 L, Scott % (Auto) 8.9, Eos % (Auto) 0.3, Baso % (Auto) 0.8, Absolute Neuts (auto) 6.6, Absolute Lymphs (auto) 1.23, Nucleated RBC % 0 03/21/22 17:14: PT 12.4, INR 1.0 03/21/22 17:14: Sodium 140, Potassium 3.7, Chloride 100, Carbon Dioxide 28.0, Anion Gap 12, BUN 11, Creatinine 1.00, Estim Creat Clear Calc 73.58, Est GFR (MDRD) Af Amer 96, Est GFR (MDRD) Non-Af 79, BUN/Creatinine Ratio 11.0, Glucose 158 H, Calcium 9.4, Total Bilirubin 0.60, AST 84 H, ALT 89 H, Alkaline Phosphatase 79, Total Protein 8.3 H, Albumin 4.6, Globulin 3.7, Albumin/Globulin Ratio 1.2 03/21/22 17:14: Ethyl Alcohol < 3.0 03/21/22 21:05: Urine Opiates Screen NEGATIVE, Urine Methadone Screen NEGATIVE, Ur Barbiturates Screen NEGATIVE, Ur Phencyclidine Scrn NEGATIVE, Ur Amphetamines Screen NEGATIVE, MDMA (Ecstasy) Screen NEGATIVE, U Benzodiazepines Scrn NEGATIVE, Urine Cocaine Screen NEGATIVE, U Cannabinoids Screen NEGATIVE, Ur Drug Screen Comment 03/22/22 02:50: WBC 5.1, RBC 3.57 L, Hgb 12.2 L, Hct 36.4 L, MCV 102.0 H, MCH 34.2 H, MCHC 33.5, RDW Std Deviation 51.8 H, RDW Coeff of Jane 13.7, Plt Count 191, MPV 9.8, Immature Gran % (Auto) 0.200, Neut % (Auto) 61.0, Lymph % (Auto) 24.7, Scott % (Auto) 11.5 H, Eos % (Auto) 2.0, Baso % (Auto) 0.6, Absolute Neuts (auto) 3.1, Absolute Lymphs (auto) 1.25, Nucleated RBC % 0 03/22/22 02:50: Sodium 138, Potassium 4.0, Chloride 102, Carbon Dioxide 31.0, An ion Gap 5, BUN 14, Creatinine 0.82, Estim Creat Clear Calc 92.86, Est GFR (MDRD) Af Amer 120, Est GFR (MDRD) Non-Af 99, BUN/Creatinine Ratio 17.0, Glucose 115 H, Calcium 8.3 L, Total Bilirubin 0.60, AST 54 H, ALT 72 H, Alkaline Phosphatase 64, Total Protein 6.8, Albumin 3.5, Globulin 3.3, Albumin/Globulin Ratio 1.1 Physical Exam Const Constitutional Narrative: No longer diaphoretic. Still with tremulousness in the upper extremities. Resp normal respiratory effort, no retractions, no use of accessory muscles and clear to auscultation bilaterally Cardio regular rate, regular rhythm, S1 normal heart sound and S2 normal heart sound GI normal to inspection, nondistended, normoactive bowel sounds, soft to palpation, non-tender and non-distended Psych affect normal Assessment & Plan Assessment/Plan (1) Alcohol withdrawal: PLAN: Patient clearly tremulous at this time. Last drink of alcohol was sometime today though smaller quantity than he normally takes. Patient still tremulous after receiving lorazepam. Patient has a high likelihood of further progression into delirium tremens. I feel its best to place the patient in the ICU and start him on a Precedex drip. If patient can remain stable and actually be taken off the Precedex and we can move him to a medical floor but his large quantity of alcohol consumption is very concerning. Thiamine folate Patient's drinks and she was not readily willing to throw away all the alcohol in the house. I told her to do so to help him maintain sobriety. She said that she will comply. I verified with the patient that the purpose of him being hospitalized is get him through his acute alcohol withdrawal but he will need to have ongoing follow-up and counseling as outpatient to help him with his alcoholism and keep him sober. Patient did agree that he would do that. Overall better today. Continue with Precedex drip. Add phenobarbital taper Monitor the patient in the ICU overnight send of patient get off the Precedex drip and is overall improved and can likely move to medical surgical floor. PLAN: Plan VTE prophylaxis with enoxaparin Charges/Coding Visit Charges Inpatient E&M: 58089 Subs Hosp L2
[2022-03-22] MEDS: Thiamine Hydrochloride 100 MG Tablet PO (09:37)
[2022-03-22] MEDS: Folic Acid 1 MG Tablet PO (09:37)
[2022-03-22] MEDS: Phenobarbital 32.4 MG Tablet PO ×4 (09:37→21:34)
[2022-03-22] MEDS: Enoxaparin 40 MG/0.4 ML Syringe SC (09:38)
[2022-03-22] MEDS: Dorzolamide HCL/Timolol 10 ml Bottle 1 DRP OPHTHALMIC ×2 (09:38→21:34)
[2022-03-22] MEDS: Latanoprost 0.005% 1 Bottle 1 DRP OPHTHALMIC (21:34)
[2022-03-23] VITALS (16 sets, daily range): BP systolic 129–169; BP diastolic 89–104; PULSE 76–99; RESP 12–20; TEMP 36.6–37; O2SAT 93–98
[2022-03-23] MEDS: Phenobarbital 32.4 MG Tablet PO ×6 (02:19→21:53)
[2022-03-23 03:07] LABS: ALB/GLOB Ratio 0.9 RATIO (0.9-2.4); AST(SGOT) 63 U/L (15-37); Alanine Aminotransfer ALT/SGPT 64 U/L (16-61); Albumin, Serum 3.8 g/dL (3.2-5.0); Alkaline Phosphatase 80 U/L (45-117); Anion Gap 7 (5-15); BUN 20 mg/dL (7-18); BUN/Creat Ratio 20.8 RATIO (10-20); Calcium,Total 9.5 mg/dL (8.5-10.1); Chloride 98 mmol/L (98-107); Creatinine, Serum 0.96 mg/dL (0.70-1.30); EST Glomerular Filtration Rate 83 mL/min (>60); Est Glom Filt Rate - Afr Amer 100 mL/min (>60); Estimated Creatinine Clearance 79.32 ml/min; Globulin 4.1 g/dL (2.2-4.2); Glucose 111 mg/dL (74-106); Potassium 4.6 mmol/L (3.5-5.1); Protein, Total 7.9 g/dL (6.4-8.2); Sodium Level 134 mmol/L (136-145)
--- NOTE | 2022-03-23 06:59 | PCM.PN.HOSP ---
Subjective Subjective Feels better. No further tremors. Objective Data Objective Data Vital Signs: Vital Signs Temp Pulse Resp BP Pulse Ox O2 Del Method O2 Flow Rate 36.6 C 82 18 159/103 H 97 Room Air 2 03/23/22 00:00 03/23/22 06:00 03/23/22 06:00 03/23/22 06:00 03/23/22 06:00 03/23/22 06:00 03/22/22 07:58 Oxygen Flow Rate (L/min) 2 Oxygen Delivery Method Room Air Weight: 75.2 kg Body Mass Index (BMI) 21.8 Intake & Output: Intake and Output for Last 24 Hours 03/21/22 03/22/22 03/23/22 23:59 23:59 23:59 Intake Total 52.20 / 54.93 1460.22 / 1460.22 0 / 0 Output Total 250 / 250 650 / 650 Balance -197.80 / -195.07 810.22 / 810.22 0 / 0 Lab / Micro Data Result Diagrams: 03/22/22 02:50 03/23/22 02:30 Labs: Laboratory Results - last 24 hr 03/23/22 02:30: Sodium 134 L, Potassium 4.6, Chloride 98, Carbon Dioxide 29.0, Anion Gap 7, BUN 20 H, Creatinine 0.96, Estim Creat Clear Calc 79.32, Est GFR (MDRD) Af Amer 100, Est GFR (MDRD) Non-Af 83, BUN/Creatinine Ratio 20.8 H, Glucose 111 H, Calcium 9.5, Total Bilirubin 0.60, AST 63 H, ALT 64 H, Alkaline Phosphatase 80, Total Protein 7.9, Albumin 3.8, Globulin 4.1, Albumin/Globulin Ratio 0.9 Physical Exam Const alert and no apparent distress Resp normal respiratory effort, no retractions, no use of accessory muscles and clear to auscultation bilaterally Cardio regular rate, regular rhythm, S1 normal heart sound and S2 normal heart sound GI normal to inspection, nondistended, normoactive bowel sounds, soft to palpation, non-tender and non-distended Assessment & Plan Assessment/Plan (1) Alcohol withdrawal: PLAN: Patient clearly tremulous at this time. Last drink of alcohol was sometime today though smaller quantity than he normally takes. Patient still tremulous after receiving lorazepam. Patient has a high likelihood of further progression into delirium tremens. I feel its best to place the patient in the ICU and start him on a Precedex drip. If patient can remain stable and actually be taken off the Precedex and we can move him to a medical floor but his large quantity of alcohol consumption is very concerning. Thiamine folate Patient's drinks and she was not readily willing to throw away all the alcohol in the house. I told her to do so to help him maintain sobriety. She said that she will comply. I verified with the patient that the purpose of him being hospitalized is get him through his acute alcohol withdrawal but he will need to have ongoing follow-up and counseling as outpatient to help him with his alcoholism and keep him sober. Patient did agree that he would do that. Has been off the Precedex gtt since 03/22. Started phenobarbital 03/22. Transfer out of ICU as he did not devolve into DTs. (2) HTN (hypertension): PLAN: Hypertension Was much higher earlier but has been trending down. Patient has not received any hydralazine since . Would continue to monitor for now PLAN: Plan VTE prophylaxis with enoxaparin Disposition: To be determined. We will transfer the patient out of the ICU. Anticipate another 24 to 48 hours in the hospital. Charges/Coding Visit Charges Inpatient E&M: 41129 Subs Hosp L2
[2022-03-23] MEDS: Folic Acid 1 MG Tablet PO (08:05)
[2022-03-23] MEDS: Thiamine Hydrochloride 100 MG Tablet PO (08:05)
[2022-03-23] MEDS: Enoxaparin 40 MG/0.4 ML Syringe SC (08:05)
[2022-03-23] MEDS: Dorzolamide HCL/Timolol 10 ml Bottle 1 DRP OPHTHALMIC ×2 (08:06→20:22)
[2022-03-23] MEDS: Latanoprost 0.005% 1 Bottle 1 DRP OPHTHALMIC (20:16)
[2022-03-23] MEDS: 0.9% Saline Lock 10 ML Syringe IV (20:19)
[2022-03-24] VITALS (10 sets, daily range): BP systolic 129–179; BP diastolic 88–117; PULSE 85–128; RESP 11–21; TEMP 36.4–37.1; O2SAT 92–96
[2022-03-24] MEDS: Phenobarbital 32.4 MG Tablet PO ×5 (02:58→20:15)
[2022-03-24] MEDS: Dorzolamide HCL/Timolol 10 ml Bottle 1 DRP OPHTHALMIC ×2 (08:46→21:30)
[2022-03-24] MEDS: Thiamine Hydrochloride 100 MG Tablet PO (08:46)
[2022-03-24] MEDS: Folic Acid 1 MG Tablet PO (08:46)
[2022-03-24] MEDS: Enoxaparin 40 MG/0.4 ML Syringe SC (08:46)
--- NOTE | 2022-03-24 09:31 | PCM.PN.HOSP ---
Subjective Subjective Patient seen and examined. He was counseled eating breakfast. He had no active complaints and had an uneventful night. Review of symptoms otherwise negative. He is mildly tachycardic. Objective Data Objective Data Vital Signs: Vital Signs Temp Pulse Resp BP Pulse Ox O2 Del Method O2 Flow Rate 97.5 F L 104 H 11 L 138/98 H 95 Room Air 2 03/24/22 08:00 03/24/22 08:12 03/24/22 08:00 03/24/22 08:00 03/24/22 08:00 03/24/22 08:00 03/22/22 07:58 Oxygen Flow Rate (L/min) 2 Oxygen Delivery Method Room Air Weight: 165 lb 9.074 oz Body Mass Index (BMI) 21.8 Intake & Output: Intake and Output for Last 24 Hours 03/22/22 03/23/22 03/24/22 23:59 23:59 23:59 Intake Total 1460.22 / 1460.22 800 / 800 500 / 500 Output Total 650 / 650 Balance 810.22 / 810.22 800 / 800 500 / 500 Lab / Micro Data Result Diagrams: 03/22/22 02:50 03/23/22 02:30 Physical Exam Const alert, oriented x3 and no apparent distress HEENT head/scalp atraumatic, moist oral mucous membranes and oropharynx normal Mouth: oral and palatal mucosa normal Eyes PERRL, EOMs intact bilaterally and conjunctivae normal Neck no lymphadenopathy, supple and no JVD Resp normal respiratory effort, no retractions, no use of accessory muscles and clear to auscultation bilaterally Cardio regular rhythm, S1 normal heart sound, S2 normal heart sound and no murmurs Cardio Narrative: Mildly tachycardic GI normal to inspection, nondistended, normoactive bowel sounds, soft to palpation, non-tender and non-distended Extremity normal to inspection, full ROM and no clubbing, cyanosis or edema Neuro oriented x3, CN's II-XII intact bilaterally, moves all extremities and no focal motor deficits Sensorium / Orientation: awake and alert Coordination / Balance: [id number] test normal Motor Exam: strength 5/5 throughout Psych affect normal Assessment & Plan Assessment/Plan (1) Alcohol withdrawal: PLAN: Plan #Acute alcohol withdrawal ? On alcohol withdrawal protocol with phenobarbital ? Monitor CIWA score ? On thiamine, as well as folic acid. ? Was initially put in the unit as it was thought he might need Precedex drip. ? Transfer out of ICU to the [facility]. #DVT prophylaxis: Lovenox Charges/Coding Visit Charges Inpatient E&M: 71869 Subs Hosp L2
[2022-03-24] MEDS: Latanoprost 0.005% 1 Bottle 1 DRP OPHTHALMIC (20:12)
[2022-03-25] VITALS (10 sets, daily range): BP systolic 118–151; BP diastolic 62–107; PULSE 81–102; RESP 13–18; TEMP 36.5–36.7; O2SAT 92–97
[2022-03-25] MEDS: Phenobarbital 32.4 MG Tablet PO ×4 (00:13→20:29)
[2022-03-25] MEDS: Enoxaparin 40 MG/0.4 ML Syringe SC (07:57)
[2022-03-25] MEDS: Thiamine Hydrochloride 100 MG Tablet PO (07:59)
[2022-03-25] MEDS: Dorzolamide HCL/Timolol 10 ml Bottle 1 DRP OPHTHALMIC ×2 (07:59→20:29)
[2022-03-25] MEDS: Folic Acid 1 MG Tablet PO (07:59)
--- NOTE | 2022-03-25 10:28 | PN.HOSP_ITS ---
Subjective Subjective Patient seen and examined. He had no active complaints and had an uneventful night. He is concerned that he is not able to ambulate very well, except with a walker. Review of systems otherwise negative. He has remained hemodynamically stable. Objective Data Objective Data Vital Signs: Vital Signs Temp Pulse Resp BP Pulse Ox O2 Del Method O2 Flow Rate 98.1 F 100 13 118/82 H 92 Room Air 2 03/25/22 07:56 03/25/22 07:56 03/25/22 07:56 03/25/22 07:56 03/25/22 07:56 03/25/22 07:56 03/22/22 07:58 Oxygen Flow Rate (L/min) 2 Oxygen Delivery Method Room Air Weight: 165 lb 9.074 oz Body Mass Index (BMI) 21.8 Intake & Output: Intake and Output for Last 24 Hours 03/23/22 03/24/22 03/25/22 23:59 23:59 23:59 Intake Total 800 / 800 1100 / 1400 500 / 500 Output Total 300 / 800 900 / 900 Balance 800 / 800 800 / 600 -400 / -400 Lab / Micro Data Result Diagrams: 03/22/22 02:50 03/23/22 02:30 Physical Exam Const alert, oriented x3 and no apparent distress HEENT normocephalic, head/scalp atraumatic, moist oral mucous membranes and oropharynx normal Mouth: oral and palatal mucosa normal Eyes PERRL, EOMs intact bilaterally and conjunctivae normal Neck no lymphadenopathy, supple and no JVD Resp normal respiratory effort, no retractions, no use of accessory muscles and clear to auscultation bilaterally Cardio regular rate, regular rhythm, S1 normal heart sound, S2 normal heart sound and no murmurs GI normal to inspection, nondistended, normoactive bowel sounds, soft to palpation, non-tender and non-distended Extremity normal to inspection, full ROM and no clubbing, cyanosis or edema Neuro oriented x3, CN's II-XII intact bilaterally, moves all extremities and no focal motor deficits Sensorium / Orientation: awake and alert Coordination / Balance: [id number] test normal Motor Exam: strength 5/5 throughout Psych affect normal Assessment & Plan Assessment/Plan (1) Alcohol withdrawal: PLAN: Plan #Acute alcohol withdrawal * On alcohol withdrawal protocol with phenobarbital * Monitor CIWA score * On thiamine, as well as folic acid. * Was initially put in the unit as it was thought he might need Precedex drip. * Transfer out of ICU to the [facility]. 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
--- NOTE | 2022-03-25 14:02 | CHAPLAIN ---
Type of Pastoral Visit _x__ Initial Visit ___ Follow-up Visit ___ On-call Visit ___ General Patient Visit ___ Spiritual Assessment ___ Family Conference ___ Bereavement ___ Rapid Response ___ Code Blue ___ Other (describe below) Pastoral Care Referral From _x__ Patient ___ Family ___ Nurse ___ Physician ___ Mangle Press Catcher ___ Senior Maintenance Technician ___ Other (describe below) Sacrament/Intervention _x__ Active listening ___ Anointing ___ Uatsdin ___ Bereavement ___ Communion ___ Francesca exploration ___ _x__ Life review ___ Prayer ___ Reconciliation ___ Sacrament of Sick _x__ Supportive presence ___ Wedding ___ Other (describe below) Pastoral Comments patient identified self as non taoist but as he talked he spoke of the possibility of Someone looking out for us and who might have a say in when it's our time; pt was talkative; gave time and presence with words of encouragement for a future with good decisions
--- NOTE | 2022-03-25 19:24 | NURSING ---
report called transferred per wheelchair to room 321
[2022-03-25] MEDS: Latanoprost 0.005% 1 Bottle 1 DRP OPHTHALMIC (20:29)
[2022-03-25] MEDS: traZODone 100 MG Tablet PO (20:31)
[2022-03-26] MEDS: Phenobarbital 32.4 MG Tablet PO ×3 (01:11→12:28)
[2022-03-26 01:50] VITALS: BP 144/90; PULSE 100; RESP 16; TEMP 36.6; O2SAT 95
[2022-03-26 08:00] VITALS: BP 136/94; PULSE 77; RESP 18; TEMP 36.8; O2SAT 98
[2022-03-26] MEDS: Folic Acid 1 MG Tablet PO (08:37)
[2022-03-26] MEDS: Thiamine Hydrochloride 100 MG Tablet PO (08:38)
[2022-03-26 08:40] VITALS: BP 136/94; PULSE 101; RESP 18; TEMP 36.9; O2SAT 98
--- NOTE | 2022-03-26 09:50 | CASEMGMT ---
Addendum entered by Rosa Fried 03/26/22 11:03: Pt was assessed by post accute admission coordinator who feels pt may be better suited for [facility] than TCU. [facility] is able to accept pt tomorrow. ALECIA met with pt and explained [facility] and provided list of IRF providers including qualithy and resource use data and consistent with the patient's preferred geographic region, medical needs and insurance network. Pt is agreeable to [facility] and would like to go to [facility]. Physician updated and agreeable to this discharge plan. Plan: [facility] Inpatient Rehab Unit, tomorrow CHRISTOS Estrada Original Note: Social Work SW received referral that pt is very weak and could benefit from SNF placement prior to return home. SW met with pt and introduced self and role of SW. SW spoke with pt regarding SNF placement and short term physical rehabilitation. Pt admits that he is having difficulty getting around and with ADLS and he would benefit from SNF. SW provided pt with life of SNF providers including quality and resource use data and consistent with the patient's preferred geographic region, medical needs and insurance network. SW explained Medicare SNF benefit to pt. Pt preferred provider is 1. TCU and 2. [place]. SW did speak with pt regarding alcohol recovery (original reason pt admitted to hospital) and pt states he plans to go to AA meetings at discharge. ALECIA discussed with pt barrier that also drinks alcohol and pt will be returning to that environment which will be a barrier to his recovery. Pt stating his will make sure all the alcohol is out of the house upon his return. Stacie, addiction, therapist updated on plan to d/c to SNF. Phone call to [facility] in TCU and referral made. [facility] will review information and make determination on acceptance. CHRISTOS Estrada
[2022-03-26] MEDS: Dorzolamide HCL/Timolol 10 ml Bottle 1 DRP OPHTHALMIC ×2 (10:54→21:05)
[2022-03-26] MEDS: Enoxaparin 40 MG/0.4 ML Syringe SC (10:55)
--- NOTE | 2022-03-26 10:55 | PN.HOSP_ITS ---
Subjective Subjective Patient seen and examined. He had no active complaints and had an uneventful night. Review of systems is otherwise negativ. He was evaluated by PT/OT yesterday and deemed as needing inpatient physical rehab. Objective Data Objective Data Vital Signs: Vital Signs Temp Pulse Resp BP Pulse Ox O2 Del Method O2 Flow Rate 98.5 F 101 H 18 136/94 H 98 Room Air 2 03/26/22 08:40 03/26/22 08:40 03/26/22 08:40 03/26/22 08:40 03/26/22 08:40 03/26/22 08:40 03/22/22 07:58 Oxygen Flow Rate (L/min) 2 Oxygen Delivery Method Room Air Weight: 165 lb 8 oz Body Mass Index (BMI) 21.8 Intake & Output: Intake and Output for Last 24 Hours 03/24/22 03/25/22 03/26/22 23:59 23:59 23:59 Intake Total 1100 / 1400 1020 / 1020 Output Total 300 / 800 900 / 900 Balance 800 / 600 120 / 120 Lab / Micro Data Result Diagrams: 03/22/22 02:50 03/23/22 02:30 Physical Exam Const alert, oriented x3 and no apparent distress HEENT normocephalic, head/scalp atraumatic, moist oral mucous membranes and oropharynx normal Eyes PERRL, EOMs intact bilaterally and conjunctivae normal Eyes Narrative: No icterus Neck no lymphadenopathy, supple and no JVD Resp normal respiratory effort, no retractions, no use of accessory muscles and clear to auscultation bilaterally Cardio regular rate, regular rhythm, S1 normal heart sound, S2 normal heart sound and n o murmurs GI normal to inspection, nondistended, normoactive bowel sounds, soft to palpation, non-tender and non-distended GI Narrative: Hepatomegaly Extremity normal to inspection, full ROM and no clubbing, cyanosis or edema Neuro oriented x3, CN's II-XII intact bilaterally, moves all extremities and no focal motor deficits Sensorium / Orientation: awake and alert Coordination / Balance: [id number] test normal Motor Exam: strength 5/5 throughout Psych affect normal Assessment & Plan Assessment/Plan (1) Alcohol withdrawal: PLAN: Plan #Acute alcohol withdrawal * On alcohol withdrawal protocol with phenobarbital * Monitor CIWA score * On thiamine, as well as folic acid. * Was initially put in the unit as it was thought he might need Precedex drip. * Transfer out of ICU to the [facility]. 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
--- NOTE | 2022-03-26 11:42 | CASEMGMT ---
Social Work Per Stacie, addiction therapist, pt is agreeable to residential treatment for alcohol recovery after stay in Inpatient Rehab. ALECIA updated LAKHWINDER Tariq, that she can contact Stacie when pt is close to discharge from and Stacie will assist with residential placement for alcohol recovery. CHRISTOS Estrada
[2022-03-26 12:15] LABS: Vitamin B12 940 pg/mL (211-911)
[2022-03-26 15:56] VITALS: BP 134/87; PULSE 84; RESP 18; TEMP 36.8; O2SAT 98
[2022-03-26] MEDS: Latanoprost 0.005% 1 Bottle 1 DRP OPHTHALMIC (20:58)
[2022-03-26] MEDS: traZODone 100 MG Tablet PO (21:11)
[2022-03-26 22:00] VITALS: BP 129/97; PULSE 91; RESP 18; TEMP 36.3; O2SAT 97
[2022-03-27 04:00] VITALS: BP 114/83; PULSE 96; RESP 18; TEMP 36.6; O2SAT 96
[2022-03-27 08:00] VITALS: BP 107/72; PULSE 90; RESP 18; TEMP 36.7; O2SAT 99
[2022-03-27] MEDS: Folic Acid 1 MG Tablet PO (08:05)
[2022-03-27] MEDS: Thiamine Hydrochloride 100 MG Tablet PO (08:05)
[2022-03-27] MEDS: Dorzolamide HCL/Timolol 10 ml Bottle 1 DRP OPHTHALMIC (08:05)
[2022-03-27] MEDS: Enoxaparin 40 MG/0.4 ML Syringe SC (08:06)
--- NOTE | 2022-03-27 11:31 | DS.PCM_ITS ---
Providers Date of Admission: 03/21/22 Date of Discharge: 03/27/22 Primary Care Physician: THAI Gann Reason For Visit: ALCOHOL WITHDRAWAL Diagnosis Discharge Diagnosis (1) Alcohol withdrawal: Status: Acute Code(s): F10.939 - Alcohol use, unspecified with withdrawal, unspecified Plan #Acute alcohol withdrawal * On alcohol withdrawal protocol with phenobarbital * Monitor CIWA score * On thiamine, as well as folic acid. * Was initially put in the unit as it was thought he might need Precedex drip. * Transfer out of ICU to the [facility]. 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 * PT/OT consulted * fall precautions * vitamin B12 and folate levels pending * on thiamine, folic acid and multivite * #DVT prophylaxis: Lovenox Disposition: awaiting placement Medications at Discharge Home Medications dorzolamide 22.3 mg-timolol 6.8 mg/mL eye drops 1 drp ophthalmic (eye) BID 06/25/21 latanoprost 0.005 % eye drops 1 drp ophthalmic (eye) QPM 06/25/21 multivitamin 1 tab PO DAILY 06/25/21 Cymbalta Check with primary doctor 03/21/22 Hospital Course Operations None Procedures None Summary of Care Provided Minutes Spent on Discharge: 43 Hospital Course: Patient is a 66-year-old male with past medical history as outlined was admitted through the ED on 03/21/2022 with a complaint of tremors. Patient had a history of copious alcohol intake and said he drank about a quarter of a bottle of vodka every day as well as drank several beers and his last drink was the day of admission. He had had significant tremors from the alcohol intake and said he w as tired of having tremors so he came into the ED for detox. He had never been through detox before. He lives with his significant other who also drank significantly. Patient was admitted for acute alcohol withdrawal. Due to concerns about delirium tremens he was initially admitted to the ICU with plans for Precedex drip. Patient however did not require Precedex drip and was placed on phenobarbital protocol. He tolerated phenobarb protocol and was transferred out of the ICU. Hospital course was complicated by debility as patient could not walk very well and had an unsteady gait. He was evaluated by physical therapy who deemed him as needing skilled therapy. He was discharged to the npatient rehab unit for further PT/OT rehabilitation on 03/27/2022. He is to follow-up with his primary care doctor within 1 to 2 weeks. Patient seen and examined prior to discharge. He has no active complaints and had an uneventful night. Review of systems otherwise negative. Labs and vitals reviewed. Home medication reviewed and reconciled. Physical Exam Const alert, oriented x3 and no apparent distress General Appearance: cooperative, comfortable and well kempt Orientation / Consciousness: awake Exam Limitations: no limitations HEENT normocephalic, head/scalp atraumatic, hearing grossly normal bilaterally, moist oral mucous membranes and oropharynx normal Mouth: oral and palatal mucosa normal Eyes PERRL, EOMs intact bilaterally and conjunctivae normal Eyes Narrative: No icterus Neck no lymphadenopathy, supple and no JVD Resp normal respiratory effort, no retractions, no use of accessory muscles and clear to auscultation bilaterally Cardio regular rate, regular rhythm, S1 normal heart sound, S2 normal heart sound and no murmurs GI normal to inspection, nondistended, normoactive bowel sounds, soft to palpation, non-tender and non-distended Extremity normal to inspection, full ROM and no clubbing, cyanosis or edema Skin no rashes or lesions noted Neuro oriented x3, CN's II-XII intact bilaterally, moves all extremities and no focal motor deficits Sensorium / Orientation: awake and alert Coordination / Balance: [id number] test normal Motor Exam: strength 5/5 throughout Psych affect normal Weight / BMI Weight Weight: 154 lb 5.177 oz Body Mass Index (BMI) 21.8 ABG / Lab / Microbiology Data Result Diagrams: 03/22/22 02:50 03/23/22 02:30 Laboratory: Laboratory Results - last 24 hr 03/26/22 11:20: Vitamin B12 940 H D/C Instructions Discharge Diet: Low fat / Low cholesterol Discharge Activity: Return to Normal Activity Weight Bearing Status: Weight bearing as tolerated Call your doctor if you observe: Fever of 101 or Higher, Shortness of breath, Dizziness, Swelling in the ankles and Chest pain Meaningful Use Info Meaningful Use Diagnoses (Choose all that apply): None applicable Discharge Plan Admission Admit Date/Time: 03/21/22 17:41 Primary Reason for Your Visit: acute alcohol withdrawal Attending Provider: Airam Ramirez Primary Care Provider: Ellyn Beaulieu Consulting Providers: Emmanuel Pitt Instructions Patient Instructions: Alcohol Addiction, Alcohol Withdrawal: What to Expect, Addiction: Getting Help Discharge Orders/Prescriptions Prescriptions: Continued multivitamin Tablet 1 tab PO DAILY dorzolamide-timolol 22.3-6.8 mg/mL drops 1 drp ophthalmic (eye) BID latanoprost 0.005 % drops 1 drp ophthalmic (eye) QPM Cymbalta Referrals / Follow Up: Ellyn Beaulieu, LEGAL OPERATIONS MANAGER-C [Primary Care Provider] - Within 2 Weeks Disposition Disposition (needs filled in before D/C Order can be placed): Inpatient Rehab Unit/Facility Charges/Coding Visit Charges Inpatient E&M: 26942 Disch Hosp
--- NOTE | 2022-03-27 12:56 | CASEMGMT ---
Social Work Per physician pt is ready for discharge today. ALECIA met with pt who continues to be agreeable to go to [facility] and updated discharge is today. SW inquired about and pt is agreeable that SW call his to update on discharge disposition. Phone call to Alexus and updated that pt needs physical rehabilitation and will be going to the [facility] today. Alexus is agreeable with this plan. Nurse updated pt can be discharged. Disposition: [facility] Inpatient Rehab CHRISTOS Estrada
[2022-03-27 13:00] VITALS: BP 121/71; PULSE 90; RESP 18; TEMP 36.7; O2SAT 99
--- NOTE | 2022-03-27 13:09 | NURSING ---
report called to Kris nurse in rehab
[2022-03-27 15:08] LABS: Folate, RBC (Hct) Test 40.8 % (37.5-51.0)
[2022-03-27 16:46] LABS: Folates, RBC Test 1353 ng/mL (>498)
== END 2022-03-27 14:52 | DRG 897 ==
LOC: ED 17:52 → ICU 17:58 → MS3 03-25 20:58
PROVIDERS: Emergency Provider Emergency Medicine; PCP Nurse Practitioner Adult Health; Visit Provider Student in an Organized Health Care Education/Training Program
DX: F10.239 Alcohol dependence with withdrawal, unspecified (principal); G62.9 Polyneuropathy, unspecified; I10 Essential (primary) hypertension; Y90.0 Blood alcohol level of less than 20 mg/100 ml; Z87.891 Personal history of nicotine dependence
CPT/HCPCS: 36415; 80053; 80307; 82077; 82607; 82747; 85014; 85025; 85610; 93005; 97162; 97166; 97530; 97535; 99285; A4216; J2405

== ENCOUNTER 2022-03-27 14:45 | Inpatient (IN) | payer MEDICARE, SELFPAY ==
[2022-03-27 15:04] VITALS: BP 142/93; PULSE 95; RESP 18; TEMP 36.7; O2SAT 96; BMI 21.9
--- NOTE | 2022-03-27 17:00 | HP.PCM_ITS ---
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 HPI Narrative Freya LITTLE, is a 66 YO M with a PMH of alcohol abuse, osteoarthritis, atrial fibrillation, hypertension, presbycusis, tobacco dependence and glaucoma who presented to [facility] on 03/21/2022 requesting admission for alcohol withdrawal. His symptoms included tremulousness and he told the admitting physician he drinks to control the tremors. He has never attempted to stop drinking. In the ED he was profoundly diaphoretic and tremulous. His significant other is a drinker also. He was admitted to the hospital to the [facility]. He was started on Thiamine, a MV and folic acid. He was started on an alcohol withdrawal protocol with Phenobarbitol. CIWA protocol was ordered. While in the hospital he was evaluated by PT/OT and they recommended acute rehab at [facility] due to generalized weakness and difficulty ambulating. Tox screen was negative at admission and the serum alcohol was less than 3. He can not tell me how much he drinks and just tells me a lot. He has never tried to stop drinking and started in his teens. I asked if drinking ever caused problems with work and he ignored me and started talking about how much his drinks. He has 2 sons and neither of them is addicted to anything. He denies any FH of alcoholism and tells me that he had a good family life when he was a child. He wants to stop but, knows that if his Jen continues to drink that other arrangements will need to be made. He is agreeable to a residential program when discharged from rehab. He stopped smoking in August of 2021. [facility] Medical History (Updated 03/29/22 @ 14:[address] Tammy Rapp, ) Alcoholism Arthritis Atrial fibrillation Back pain Environmental allergies Glaucoma History of depression History of echocardiogram HTN (hypertension) Loss of hearing Shortness of breath on exertion Tachycardia Tobacco dependence in remission Wears glasses Home Medications latanoprost 0.005 % eye drops 1 drp ophthalmic (eye) QPM glaucoma 06/25/21 [History Last Taken 12/21/21] multivitamin 1 tab PO DAILY vitamin 06/25/21 [History Last Taken Unknown] brimonidine 0.2 % eye drops 1 drp EACH EYE TID glaucoma 03/27/22 [History Last Taken Unknown] duloxetine 60 mg capsule,delayed release (Cymbalta) 60 mg PO DAILY Check with primary doctor 03/27/22 [History Last Taken Unknown] Allergy/AdvReac Type Severity Reaction Status Date / Time No Known Allergies Allergy Verified 03/21/22 16:12 Family History Father Colon cancer Mother Diabetes Surgical History History of cardiac catheterization History of eye surgery History of hernia repair Social History (Updated 03/29/22 @ 13:[address] Tammy Rapp DO) household members: spouse housing: other details: He is being evicted from his current residence....they rent number of children: 2 Smoking Status: Former smoker Tobacco: How many years used: 42 how long ago did patient quit smokin months alcohol intake: current details: He went through detox in the hospital and was admitted on 03/21/22 substance use type: does not use what type of physical activity do you participate in: none ROS Constitutional Constitutional: Reports change in weight, fatigue and weakness; Denies anorexia, chills, fever(s) or night sweats Eyes Eyes: Denies blurry vision, change in vision, eye pain or loss of vision ENT HEENT: Reports abnormal hearing; Denies dysphagia, headache(s), hearing loss, nasal congestion or sore throat Cardiovascular Cardiovascular: Reports dyspnea on exertion; Denies chest pain, edema, lightheadedness, orthopnea, palpitations, paroxysmal nocturnal dyspnea or syncope Respiratory/Chest Respiratory/Chest: Reports shortness of breath with exertion and other Details: Tells me that he had PFT's not too long ago and he has mild Emphysema. ; Denies cough, dyspnea, shortness of breath at rest or wheezing Gastrointestinal Gastrointestinal: Reports weight changes; Denies abdominal pain, constipation, diarrhea, dyspepsia, hematemesis, hematochezia, nausea or vomiting Genitourinary Genitourinary: Denies dysuria, hematuria, nocturia, urinary frequency, urinary hesitancy, urinary incontinence or urinary urgency Musculoskeletal Musculoskeletal: Reports back pain; Denies joint pain, joint swelling or neck pain Integumentary Integumentary: Denies changing lesions, jaundice or wounds Neurologic Neurologic: Reports tremor(s); Denies confusion, disequilibrium, dizziness, focal weakness, headache(s), paresthesias or seizures Psychiatric Psychiatric: Denies anxiety, depression, homicidal ideation or suicidal ideation Endocrine Endocrinology: Denies change in body appearance, polydipsia or polyuria Hematologic/Lymphatic Hematologic/Lymphatic: Denies easy bleeding, easy bruising or lymphadenopathy Allergic/Immunologic Allergic/Immunologic: Reports rhinitis; Denies eczemia or asthma Vital Signs Vital Signs Vital Signs: 03/27/22 15:04 Temperature 98.1 F Temperature Source Oral Pulse Rate 95 Respiratory Rate 18 Blood Pressure 142/93 H Blood Pressure Mean 109 Blood Pressure Source Monitor Blood Pressure Position Sitting Blood Pressure Location Right Arm Pulse Ox 96 Oxygen Delivery Method Room Air Weight Weight: 165 lb 12.602 oz Body Mass Index (BMI) 21.9 Physical Exam Const alert Constitutional Narrative: voraciously eating his lunch when I entered the room General Appearance: cooperative and appears older than stated age; Negative for diaphoretic HEENT normocephalic and head/scalp atraumatic Eyes PERRL, EOMs intact bilaterally and conjunctivae normal; Negative for no scleral icterus Neck supple General: Negative for tenderness Chest Chest: symmetrical chest wall rise Resp normal respiratory effort, normal air movement and clear to auscultation bilaterally Effort and Inspection: able to speak in complete sentences Cardio regular rate, regular rhythm, S1 normal heart sound, S2 normal heart sound and no gallops; Negative for diaphoretic GI normal to inspection, nondistended, normoactive bowel sounds, soft to palpation and non-tender GI Narrative: No guarding with palpation Extremity no calf tenderness and no pedal edema Skin no jaundice, no petechiae and no mottling General Skin Exam: no breakdown Rashes: no rashes Neuro CN's II-XII intact bilaterally, moves all extremities and no focal motor deficits Psych cooperative, affect normal and speech normal Appearance: grossly normal Attitude: calm Activity / Motor Behavior: appropriate eye contact Speech: normal speech Assessment & Plan Assessment/Plan (1) Physical debility: (2) Generalized weakness: PLAN: 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 (3) Alcoholism: PLAN: Started in his teens and has been drinking heavily since. He will not tell me how much he drinks but, his told the ED doc about 1/2/gallon of Vodka a day plus beer. (4) DTs (delirium tremens): PLAN: Resolved. Was placed on a Phenobarb taper in the hospital. (5) Abnormal transaminases: PLAN: mildly elevated with a normal BILI and AP (6) Elevated fasting glucose: (7) Hyponatremia: PLAN: mild with a NA+ of 134 (8) Macrocytic anemia: (9) Fecal occult blood test positive: (10) Dyslipidemia: (11) HTN (hypertension): (12) Atrial fibrillation: (13) Glaucoma: (14) Tobacco dependence in remission: (15) History of depression: PLAN: Plan PLAN PT for gait stability OT for ADL's ST for evaluation for cognition Analgesics as needed Bowel protocol Fall precautions Assess for Anxiety/Depression GI prophylaxis - if the hemoccult is + will start a PPI DVT prophylaxis with Lovenox 40 mg subcu daily Follow up with [facility] and PCP following DC from [facility] Rehab AM lab including CMP, CBC, Mag and Phos Hemoccult stool Folate, B12 Alcohol cessation counselling was given Unit Exclusion This patient is an acute care inpatient being housed in the excluded unit because of capacity issues related to the disaster or emergency.: Yes Charges/Coding Visit Charges Inpatient E&M: 40728 Init Hosp L2
[2022-03-27 19:30] VITALS: BP 140/91; PULSE 93; RESP 18; TEMP 36.7; O2SAT 95
[2022-03-27] MEDS: Latanoprost 0.005% 1 Bottle 1 DRP OPHTHALMIC (20:10)
[2022-03-27] MEDS: BRIMONIDINE 0.2% 5ML BOTTLE 1 DRP EACH EYE (21:56)
[2022-03-28] MEDS: BRIMONIDINE 0.2% 5ML BOTTLE 1 DRP EACH EYE ×3 (05:13→20:44)
[2022-03-28] MEDS: Multivitamins,Therapeutic Tablet 1 TABLET PO (07:41)
[2022-03-28 08:33] VITALS: BP 135/86; PULSE 87; RESP 18; TEMP 36.6; O2SAT 95
[2022-03-28] MEDS: DULoxetine Hcl 60 MG Capsule PO (09:57)
[2022-03-28] MEDS: Senna/Docusate Sodium 1 Tablet 2 TABLET PO (09:57)
[2022-03-28 19:24] VITALS: BP 96/58; PULSE 70; RESP 18; TEMP 36.7; O2SAT 98
[2022-03-28] MEDS: Latanoprost 0.005% 1 Bottle 1 DRP OPHTHALMIC (20:44)
[2022-03-29] MEDS: BRIMONIDINE 0.2% 5ML BOTTLE 1 DRP EACH EYE ×2 (04:24→15:04)
[2022-03-29 07:55] VITALS: BP 136/87; PULSE 90; RESP 18; TEMP 36.4; O2SAT 97
[2022-03-29] MEDS: Multivitamins,Therapeutic Tablet 1 TABLET PO (10:35)
[2022-03-29] MEDS: DULoxetine Hcl 60 MG Capsule PO (10:35)
--- NOTE | 2022-03-29 14:16 | PCM.RU.PYE ---
Admission Information Primary Diagnosis:: Generalized weakness/physical debility secondary to long-term alcoholism and lack of exercise. Status Changes from Prescreening?: No changes Identified Actual Problem List:: Falls, Cognitve Impr/Memory Loss, Depression, Alteration in Nutrition, Mobility Impaired, Self Care Deficit, Fluid Change-Dehydration and Alteration-Leisure Activ. Potential Problem List:: DVT, Bleeding, Infection, UTI, Aspiration, Falls, Skin Integrity and Depression Risk of Complications DVT: MARIA LUISA Hose and Sequential Compression Device Bleeding: Monitor Lab Values, Nursing to Teach Precautions for anti-coagulation therapy., Wound, if applicable, to be assessed every shift. and Stroke patients assessed for lethargy or change in status. Infection: Clinical Staff to Monitor for S/S of infection: and S/S of infection include fever, redness, warmth, etc. Urinary Tract Infection: Monitor for frequency, burning, discomfort, or incontinence. and Nursing will obtain urine sample for urinalysis and C&S when ordered. Aspiration: Clinical staff will monitor for coughing, drooling, congestion., Speech will evaluate swallowing and dsyphasia. and Nursing will monitor patient swallowing during meals. Falls: Patient will be evaluated for Fall Precautions and Patient will be placed on Fall Precautions as indicated per protocol. Skin Breakdown: Nursing will assess skin daily using assessment tool. and Nursing will place on Skin Breakdown Precautions as indicated. Pain: Clinical staff will assess patient's pain level per protocol., Medications will be given, if needed, and the pain level reassessed. and Other methods: Massage, distraction, decrease stimulus, etc. used PRN. Plan of Care Patient requires physician specializing in physical medicine and rehab oversight to provide close medical supervision of rehab issues including: Pain Management, Sleep Problems, Bowel and Bladder, Medical and co-morbidity Management, DVT prophylaxis, Rehabilitation Leadership and Coordination of treatment team Patient needs Physical Therapy: For a minimum of 1 hour and At least 5 out of 7 days Patient needs Physical Therapy to improve:: Mobility, Strengthening, Transfers, Stretching, ROM, Endurance, Stairs, Gait and Balance Patient needs Occupational Therapy: For a minimum of 1 hour and At least 5 out of 7 days Patient needs Occupational Therapy to improve ADL's incl.: Eating, Grooming, Bathing, Dressing, Toileting, Toilet transfers, Community Reintegration, Higher functioning activities, Household tasks, Adaptive Equipment, Splinting and Other activities as determined Patient requires speech therapy: For a minimum of 1 hour and At least 5 out of 7 days Patient requires speech therapy for: Swallowing, Cognition, Language Skills and Compensatory Strategies Patient requires 24/7 Rehabilitation Nursing for: Pain Issues, Identifying and preventing risk factors, Monitoring and reporting current medical conditions, Assisting with ambulation, transfer, and all ADL's, Teaching patients about disease process and medications, Family teaching, Providing safe environment, Bowel and Bladder Issues, Skin integrity and Medication Management Patient needs Rewards Consultant/ Case Management for: Discharge Planning, Arranging Home Equipment or Services and Family Interventions Patient needs Dietary and Nutrition Services for: Adequate Nutrition, Nutritional Supplements and Nutritional Education Goals Patient will remain: free from falls and or injury at time of discharge. Patient will perform bed mobility at: MOD I level of assist. Patient will complete transfers from bed to chair at: MOD I level of assist. Patient will ambulate: 100 feet, with LRD and - (200 feet with least restrictive device at mod I) Patient will complete upper body dressing at: MOD I level of assist. Patient will complete lower body dressing at: MOD I level of assist. Patient will complete toileting at: MOD I level of assist. Patient will perform bathing at: MOD I level of assist. Patient will complete grooming at: MOD I level of assist. Patient will complete home management skills at: MOD I level of assist. Patient will achieve: 12 stairs (With bilateral handrails at contact-guard assist) and - (1 curb step) Patient will have pain level of: of 3 or less Patient's skin will: remain intact Patient will receive: adequate nutrition. Discharge Planning Pt Prognosis for Sig. Practical Improv. w/in Reasonable Time: Good Estimated Length of stay (days): 14 Anticipated D/C Destination: Assisted Living Facility (A residential facility for alcoholism) Was Preadmission Assessment Accurate?: Yes
[2022-03-29 19:11] VITALS: BP 126/75; PULSE 83; RESP 17; TEMP 36.2; O2SAT 98
[2022-03-29] MEDS: Latanoprost 0.005% 1 Bottle 1 DRP OPHTHALMIC (20:15)
[2022-03-30] MEDS: BRIMONIDINE 0.2% 5ML BOTTLE 1 DRP EACH EYE ×3 (06:38→20:51)
[2022-03-30 07:28] VITALS: BP 118/75; PULSE 88; RESP 16; TEMP 36.7; O2SAT 95
[2022-03-30] MEDS: Multivitamins,Therapeutic Tablet 1 TABLET PO (08:21)
[2022-03-30] MEDS: DULoxetine Hcl 60 MG Capsule PO (08:22)
[2022-03-30 19:36] VITALS: BP 120/65; PULSE 75; RESP 16; TEMP 36.6; O2SAT 96
[2022-03-30] MEDS: Latanoprost 0.005% 1 Bottle 1 DRP OPHTHALMIC (20:50)
[2022-03-31] MEDS: BRIMONIDINE 0.2% 5ML BOTTLE 1 DRP EACH EYE ×3 (04:58→22:20)
[2022-03-31 07:30] VITALS: BP 124/80; PULSE 80; RESP 16; TEMP 36.4; O2SAT 95
[2022-03-31] MEDS: DULoxetine Hcl 60 MG Capsule PO (07:50)
[2022-03-31] MEDS: Multivitamins,Therapeutic Tablet 1 TABLET PO (07:50)
--- NOTE | 2022-03-31 12:24 | PN_ITS ---
Subjective Subjective Michael was seen on team rounds today. His Alexus was present in the room. Afebrile VSS Maintaining appropriate oxygen saturation on RA Oral intake is good Discussed with nursing - no problems that need addressed Reviewed the PT/OT/ST notes and listened to their presentations on rounds. Medication list reviewed. Michael tells me that he had a colonoscopy by Dr. Calderon in the past (June of 2021). I looked up the report and there was scattered inflammation in the cecum and this was biopsied. Biopsies showed no pathologic change. He had an EGD on the same date that showed a normal esophagus, gastritis with hemorrhage, normal duodenum. No biopsies were done. His Alexus tells me he was pr escribed medication for gastritis but, he does not take it often. Michael denies CP, SOB, palpitations, lightheadedness, dysuria. He is sleeping well and eating well and has been very cooperative with the therapists. Objective Data Objective Data Vital Signs: Vital Signs Temp Pulse Resp BP Pulse Ox O2 Del Method 97.6 F L 80 16 124/80 H 95 Room Air 03/31/22 07:30 03/31/22 07:30 03/31/22 07:30 03/31/22 07:30 03/31/22 07:30 03/31/22 07:30 Oxygen Delivery Method Room Air Weight: 165 lb 12.602 oz Body Mass Index (BMI) 21.9 Intake & Output: Intake and Output for Last 24 Hours 03/29/22 03/30/22 03/31/22 23:59 23:59 23:59 Intake Total 240 / 240 240 / 240 Balance 240 / 240 240 / 240 Physical Exam Const alert, oriented x3 and no apparent distress Constitutional Narrative: Sitting in the recliner at the bedside. Making good eye contact. appropriate. General Appearance: cooperative Eyes PERRL and EOMs intact bilaterally Eyes Narrative: No scleral icterus. No conjunctival injection or mattering of the eyelids. Resp normal respiratory effort and normal air movement Resp Narrative: No conversational dyspnea Effort and Inspection: able to speak in complete sentences Cardio regular rate, regular rhythm, no murmurs and no gallops GI normal to inspection, nondistended, normoactive bowel sounds, soft to palpation and non-tender GI Narrative: No guarding with palpation. Extremity no calf tenderness and no pedal edema Skin no jaundice, no petechiae and no mottling General Skin Exam: no breakdown Rashes: no rashes Assessment & Plan Assessment/Plan (1) Physical debility: PLAN: Continue PT/OT. Plan is to discharge to [facility] residential program this coming Thursday. (2) Generalized weakness: (3) Alcoholism: (4) Abnormal transaminases: PLAN: Recheck a CMP prior to discharge (5) Elevated fasting glucose: PLAN: Check a hemoglobin A1c with the next lab draw. (6) Hyponatremia: (7) Macrocytic anemia: (8) Fecal occult blood test positive: PLAN: He has a history of gastritis in the past and has been started on Protonix. (9) History of depression: PLAN: Plan We discussed with Michael and Alexus all the organs/systems that ETOH can affect. He is wondering why he is having LOB and needs a walker. I explained that ETOH is associated with cerebellar atrophy and this can lead to ataxia.......and I also related that the trouble with ambulation could be due to weakness associated with a diet primarily consisting of ETOH. He is having trouble with memory and executive functioning and this could be due to chronic encephalopathy due to 50 years of alcoholism. We also discussed what there plan is since they are being evicted from the trailer they have lived in for the past 12 years. Alexus has mental health issues and follows at the counselling center and I suggested she call her outpatient case manager and ask for assistance in finding a new residence for her and Michael. Will call the counselling center and inquire whether she has done this tomorrow. Alexus has Chronic pain S. and she follows with a doctor at [facility] for pain medication because the injury was work related . She tells me that she has been cutting back on her ETOH consumption but, tells me that she does not want to stop completely because it helps with the pain. She also tells me that she can't come to the hospital for the [facility] program because there is no one to care for her 3 cats. She is tearful at times. Charges/Coding Visit Charges Inpatient E&M: 50730 Subs Hosp L2
--- NOTE | 2022-03-31 13:02 | CASEMGMT ---
Addendum entered by Chandni Loo 03/31/22 15:44: Call placed to Stacie with DC date 04/06 or 04/07, explained pt does not receive therapy on Thursday's, thus why DC date for 04/06. Stacie stated few facilities accept Thursday DC's and prefers DC Thursday's. SW understood and will set DC for 04/07. Offered to assist with DC plans as needed. Stacie will visit pt this week and discuss plans. SW to continue to follow. Original Note: Social Work IDT met with patient and for Team meeting. Discussed patient's progress in PT/OT/ST/SN. Explained Medicare approved 11 days with DC 04/06. The goal remains pt DC to [facility] residential treatment facility. SW to contact treatment navigator to coordinate. SW to continue to follow for discharge planning. [facility] [place]
[2022-03-31 19:36] VITALS: BP 108/60; PULSE 75; RESP 16; TEMP 36.6; O2SAT 97
[2022-03-31 19:48] VITALS: PULSE 75; RESP 16; O2SAT 95
[2022-03-31] MEDS: Latanoprost 0.005% 1 Bottle 1 DRP OPHTHALMIC (20:00)
[2022-04-01] MEDS: BRIMONIDINE 0.2% 5ML BOTTLE 1 DRP EACH EYE ×3 (06:23→20:59)
[2022-04-01 07:36] VITALS: BP 123/77; PULSE 85; RESP 18; TEMP 36.5; O2SAT 94
[2022-04-01] MEDS: Multivitamins,Therapeutic Tablet 1 TABLET PO (08:24)
[2022-04-01] MEDS: DULoxetine Hcl 60 MG Capsule PO (08:24)
[2022-04-01] MEDS: Pantoprazole Sodium 40 MG Tablet PO (08:24)
--- NOTE | 2022-04-01 16:08 | CHAPLAIN ---
Type of Pastoral Visit ___ Initial Visit _x__ Follow-up Visit ___ On-call Visit ___ General Patient Visit ___ Spiritual Assessment ___ Family Conference ___ Bereavement ___ Rapid Response ___ Code Blue ___ Other (describe below) Pastoral Care Referral From _x__ Patient ___ Family ___ Nurse ___ Physician ___ Slate Splitter ___ Sorting Livestock Worker ___ Other (describe below) Sacrament/Intervention _x__ Active listening ___ Anointing ___ Alevism ___ Bereavement ___ Communion ___ Francesca exploration ___ ___ Life review _x__ Prayer ___ Reconciliation ___ Sacrament of Sick _x__ Supportive presence ___ Wedding ___ Other (describe below) Pastoral Comments follow up to this patient who was seen previously when in ICU; pt is very talkative and gives updates and statements of appreciation for the staff and his improvement; pt speaks of what might be next for him in alcohol treatment; pt is given verbal support for making his future better;
[2022-04-01 19:27] VITALS: BP 118/70; PULSE 74; RESP 18; TEMP 36.8; O2SAT 95
[2022-04-01 19:40] VITALS: PULSE 74; RESP 18; O2SAT 95
[2022-04-01] MEDS: Latanoprost 0.005% 1 Bottle 1 DRP OPHTHALMIC (20:03)
--- NOTE | 2022-04-02 03:35 | NURSING ---
Reviewed and agree with [employer] documentation and assessment charting.
[2022-04-02] MEDS: BRIMONIDINE 0.2% 5ML BOTTLE 1 DRP EACH EYE ×3 (06:29→20:04)
[2022-04-02 07:30] VITALS: BP 138/84; PULSE 76; RESP 17; TEMP 36.7; O2SAT 95
[2022-04-02] MEDS: Pantoprazole Sodium 40 MG Tablet PO (07:51)
[2022-04-02] MEDS: Multivitamins,Therapeutic Tablet 1 TABLET PO (07:51)
[2022-04-02] MEDS: DULoxetine Hcl 60 MG Capsule PO (07:51)
[2022-04-02] MEDS: Senna/Docusate Sodium 1 Tablet 2 TABLET PO (20:04)
[2022-04-02] MEDS: Latanoprost 0.005% 1 Bottle 1 DRP OPHTHALMIC (20:04)
[2022-04-02 22:00] VITALS: BP 131/78; PULSE 78; RESP 16; TEMP 36.6; O2SAT 95
[2022-04-03] MEDS: BRIMONIDINE 0.2% 5ML BOTTLE 1 DRP EACH EYE ×3 (05:44→21:26)
[2022-04-03 07:18] VITALS: BP 128/72; PULSE 78; RESP 16; TEMP 36.6; O2SAT 95
[2022-04-03] MEDS: DULoxetine Hcl 60 MG Capsule PO (07:51)
[2022-04-03] MEDS: Multivitamins,Therapeutic Tablet 1 TABLET PO (07:51)
[2022-04-03] MEDS: Pantoprazole Sodium 40 MG Tablet PO (07:51)
--- NOTE | 2022-04-03 10:07 | PN_ITS ---
Subjective Subjective Afebrile VSS Maintaining appropriate oxygen saturation on RA Oral intake is good Discussed with nursing - no problems that need addressed Reviewed the PT/OT/ST notes Medication list reviewed. Sleeping well. Good appetite. Progressing in therapy but not yet ready to be discharged. He has to be able to do steps so that he can be admitted to the residential alcohol and drug rehab facility. He is still needing some assistance with ADL's. Michael denies chest pain, shortness of breath, palpitations, lightheadedness, nausea/vomiting/abdominal pain, black tarry stool, calf pain, dysuria. Objective Data Objective Data Vital Signs: Vital Signs Temp Pulse Resp BP Pulse Ox O2 Del Method 97.9 F 78 16 128/72 H 95 Room Air 04/03/22 07:18 04/03/22 07:18 04/03/22 07:18 04/03/22 07:18 04/03/22 07:18 04/03/22 07:18 Oxygen Delivery Method Room Air Weight: 165 lb 12.602 oz Body Mass Index (BMI) 21.9 Intake & Output: Intake and Output for Last 24 Hours 04/01/22 04/02/22 04/03/22 23:59 23:59 23:59 Intake Total 720 / 720 240 / 240 Balance 720 / 720 240 / 240 Lab / Micro Data Result Diagrams: 04/04/22 05:33 04/04/22 05:33 Physical Exam Const Constitutional Narrative: Alert, talkative, appropriate. HEENT HEENT Narrative: Mucous membranes are moist. Eyes Eyes Narrative: Pupils are equal round and reactive to light. No scleral icterus, no injection of the conjunctiva and no discharge from the eyes. Resp Resp Narrative: Diminished throughout but clear to auscultation without rales, rhonchi or wheezes. No conversational dyspnea. Cardio Cardio Narrative: Regular rate and rhythm, no gallop. GI GI Narrative: Soft, nontender, nondistended, normal bowel sounds heard, no guarding with palpation, no masses appreciated. Extremity Extremity Narrative: No peripheral edema and no calf tenderness. Skin Skin Narrative: No rashes and no skin breakdown. Assessment & Plan Assessment/Plan (1) Physical debility: (2) Generalized weakness: (3) Abnormal transaminases: (4) Hyponatremia: (5) Macrocytic anemia: (6) History of depression: PLAN: Plan 1. CBC, CMP, Mag and phos in the AM. 2. Continue therapy 3. I spoke with Luke from [facility] today. She is working on getting him into [facility] but, there is not currently an open bed. He must be able to do steps when he is at [facility] and he is not yet ready to be discharged. He is still requiring some assistance with ADL's and is not yet able to climb steps without assist. 4. Plan transfer to TCU on 04/07/22 for additional PT/OT prior to DC to a residential CTR for tx of Alcohol and drug dependence. Charges/Coding Visit Charges Inpatient E&M: 64437 Subs Hosp L2
[2022-04-03 20:37] VITALS: BP 110/69; PULSE 72; RESP 17; TEMP 36.7; O2SAT 98
[2022-04-03 20:39] VITALS: PULSE 72; RESP 16
[2022-04-03] MEDS: Latanoprost 0.005% 1 Bottle 1 DRP OPHTHALMIC (21:00)
[2022-04-04 05:43] LABS: Hematocrit 38.2 % (40-54); Hemoglobin 12.9 g/dL (13.0-16.5); Mean Corp Hgb Conc 33.8 g/dL (32-36); Mean Corpuscular Hgb 34.2 pg (27.0-32.0); Mean Corpuscular Volume 101.3 fL (80-94); Mean Platelet Vol. 9.5 fl (6.2-12.0); Platelet Count 356 K/mm3 (150-450); RBC Distribution Width CV 13.2 % (11.6-14.6); RBC Distribution Width SD 49.5 fl (35.1-43.9); Red Blood Count 3.77 M/mm3 (4.6-6.2); White Blood Count 7.4 K/mm3 (4.4-11.0)
[2022-04-04] MEDS: BRIMONIDINE 0.2% 5ML BOTTLE 1 DRP EACH EYE ×3 (05:45→20:57)
[2022-04-04 06:09] LABS: AST(SGOT) 17 U/L (15-37); Alanine Aminotransfer ALT/SGPT 39 U/L (16-61); Albumin, Serum 3.3 g/dL (3.2-5.0); Alkaline Phosphatase 72 U/L (45-117); Anion Gap 5 (5-15); BUN 20 mg/dL (7-18); BUN/Creat Ratio 21.6 RATIO (10-20); Calcium,Total 8.5 mg/dL (8.5-10.1); Chloride 107 mmol/L (98-107); Creatinine, Serum 0.92 mg/dL (0.70-1.30); EST Glomerular Filtration Rate 87 mL/min (>60); Est Glom Filt Rate - Afr Amer 105 mL/min (>60); Estimated Creatinine Clearance 82.87 ml/min; Globulin 3.2 g/dL (2.2-4.2); Glucose 103 mg/dL (74-106); Magnesium 1.9 mg/dL (1.6-2.6); Potassium 3.9 mmol/L (3.5-5.1); Protein, Total 6.5 g/dL (6.4-8.2); Sodium Level 140 mmol/L (136-145)
[2022-04-04 07:46] VITALS: BP 111/71; PULSE 72; RESP 16; TEMP 36.3; O2SAT 94
[2022-04-04] MEDS: Multivitamins,Therapeutic Tablet 1 TABLET PO (08:37)
[2022-04-04] MEDS: Pantoprazole Sodium 40 MG Tablet PO (08:37)
[2022-04-04] MEDS: DULoxetine Hcl 60 MG Capsule PO (08:37)
--- NOTE | 2022-04-04 12:02 | ADDICTION ---
This telegraphic typewriter operator met with PT to discuss treatment options and to plan for d/c. PT plans to f/u with [facility] for in-patient residential treatment services. The caser will be calling this afternoon to discuss admission and do a screen. PT will need for transportation post d/c from [facility].
--- NOTE | 2022-04-04 15:23 | CASEMGMT ---
Social Work Spoke with Addiction Therapist, Stacie, whom can have pt admit to [facility], however, there is not a bed available for pt to DC from directly to [facility]. SW spoke with IDT and pt - all parties recommending and agreeable to transfer to TCU for continued therapy. Home is not a safe environment or recommended r/t risk of relapse. TCU can accept pt. Plan: DC 04/07 to TCU until bed available at [facility] for recovery Chandni Loo, HAL CNA INSTRUCTOR
[2022-04-04] MEDS: Latanoprost 0.005% 1 Bottle 1 DRP OPHTHALMIC (20:48)
[2022-04-04 20:50] VITALS: BP 128/64; PULSE 61; RESP 16; TEMP 36.6; O2SAT 97
[2022-04-05] MEDS: BRIMONIDINE 0.2% 5ML BOTTLE 1 DRP EACH EYE ×3 (05:39→20:30)
[2022-04-05] MEDS: Multivitamins,Therapeutic Tablet 1 TABLET PO (08:57)
[2022-04-05] MEDS: Pantoprazole Sodium 40 MG Tablet PO (08:57)
[2022-04-05] MEDS: DULoxetine Hcl 60 MG Capsule PO (08:57)
[2022-04-05 10:00] VITALS: BP 111/69; PULSE 76; RESP 16; TEMP 36.8; O2SAT 93
[2022-04-05 19:24] VITALS: BP 115/69; PULSE 67; RESP 16; TEMP 36.7; O2SAT 95
[2022-04-05] MEDS: Latanoprost 0.005% 1 Bottle 1 DRP OPHTHALMIC (20:31)
--- NOTE | 2022-04-06 03:32 | NURSING ---
Reviewed and agree with [employer] documentation.
[2022-04-06] MEDS: BRIMONIDINE 0.2% 5ML BOTTLE 1 DRP EACH EYE ×3 (06:01→21:03)
[2022-04-06 08:00] VITALS: BP 123/81; PULSE 77; RESP 18; TEMP 36.6; O2SAT 95
[2022-04-06] MEDS: Pantoprazole Sodium 40 MG Tablet PO (08:56)
[2022-04-06] MEDS: DULoxetine Hcl 60 MG Capsule PO (08:56)
[2022-04-06] MEDS: Multivitamins,Therapeutic Tablet 1 TABLET PO (08:56)
[2022-04-06 19:20] VITALS: BP 112/68; PULSE 69; RESP 16; TEMP 36.7; O2SAT 95
[2022-04-06] MEDS: Latanoprost 0.005% 1 Bottle 1 DRP OPHTHALMIC (20:46)
[2022-04-06 20:59] VITALS: PULSE 69; RESP 16; O2SAT 98
[2022-04-07] MEDS: BRIMONIDINE 0.2% 5ML BOTTLE 1 DRP EACH EYE ×2 (06:04→13:44)
[2022-04-07 07:41] VITALS: BP 109/70; PULSE 66; RESP 16; TEMP 36.8; O2SAT 93
[2022-04-07] MEDS: DULoxetine Hcl 60 MG Capsule PO (08:15)
[2022-04-07] MEDS: Multivitamins,Therapeutic Tablet 1 TABLET PO (08:15)
[2022-04-07] MEDS: Pantoprazole Sodium 40 MG Tablet PO (08:15)
--- NOTE | 2022-04-07 12:26 | PCM.TXEXTCAR ---
Diet Diet Order/Speech Therapy: 03/27/22 15:11 Diet: Regular - General Routine Orders/Code Status Enema Type: Fleetz Enema Frequency: Daily PRN Suppository Type: Dulcolax 10mg Suppository Frequency: Daily PRN O2 Liters per Minute: 1-2 O2 Frequency: PRN Keep PO Greater than or Equal to (%): 90 Code Status: Full Code Therapies Weight Bearing: Full weight bearing Physical Therapy: Eval and Treat Occupational Therapy: Eval and Treat Speech Therapy: Eval and Treat Problem/Diagnosis (1) Physical debility: Status: Acute Code(s): R53.81 - Other malaise (2) Generalized weakness: Status: Acute Code(s): R53.1 - Weakness (3) Abnormal transaminases: Status: Acute Code(s): R74.8 - Abnormal levels of other serum enzymes Plan: Mildly elevated at admission but normalized prior to DC. (4) Hyponatremia: Status: Acute Code(s): E87.1 - Hypo-osmolality and hyponatremia Plan: Resolved (5) Macrocytic anemia: Status: Acute Code(s): D53.9 - Nutritional anemia, unspecified Plan: Folate, B12 and TSH are all normal. Macrocytosis possibbly secondary to chronic liver disease due to ETOH. (6) History of depression: Status: Acute Code(s): Z86.59 - Personal history of other mental and behavioral disorders Plan: Continue Cymbalta Plan 1. Transfer to the transitional care unit for additional PT/OT prior to being transferred to an inpatient alcohol/drug rehabilitation facility 2. Allergies/Procedures Done in Hospital Allergies No Known Allergies Allergy (Verified 03/21/22 16:12) Procedures: None Type of Care/Length of Stay Estimated LOS: Convalescent Care Less Than 30 days Type of Care Needed: Skilled Rehab Potential: Good Prognosis: Good Additional Orders/Day of Discharge H&P will serve as current which was dated: 03/27/22 Day of Discharge: 04/07/22 Dietary and Speech Recommendations Dietitian Recommendations/Changes: Will continue Regular diet as ordered Available if changes in pt nutritional status Follow Up Care Please follow up with your Primary Care Physician in: Following DC from TCU/[facility] Discharge Plan Admission Admit Date/Time: 03/27/22 14:45 Primary Reason for Your Visit: Debility secondary to generalized weakness related to long-term alcohol use Attending Provider: Tammy Rapp Primary Care Provider: Ellyn Beaulieu Instructions Patient Instructions: Alcohol Addiction, Understanding Alcoholism, Alcoholism: Myths and Facts Additional Instructions / Restrictions: 1. Some of your liver tests were elevated when you were admitted to the hospital. They were normal on the last labs drawn. I suspect the abnormalities in the liver tests were due to alcohol. You have elevated fats in your blood and alcohol causes fat infiltration into the liver causing fatty infiltration which many times precedes cirrhosis. I hope that you are successful in your efforts to stop drinking. 2. It is very difficult, if not impossible, to stop any addiction if others around you are still using. Stay away from people who are drinking and you will be less tempted to start again. You have made a very good decision to enter a residential treatment facility. This increases the odds that you will be successful in stopping Alcohol use/abuse. Remember, when you have an addiction you can not stop at one so don't think you will be able to have a drink now and again with friends and not have registered clinical dietitian to recurrent Alcohol addiction. 3. You were in bad shape when you came to the hospital and you are much stronger now and more alert but, you have a ways to go yet. You must be able to climb steps to go to the residential rehab program. You need to get stronger. Everyone knows that alcohol can damage the liver but, [facility] abuse also suppresses bone marrow, weakens the heart, causes cognitive dysfunction, affects the nerves and can lead to numbness in the hands and feet, causes erectile dysfunction, causes pancreatic disease can can lead to diabetes (your blood sugars have been elevated) and also causes depression. It has been associated with certain cancers.....pancreatic cancer, esophageal cancer (apollo in people who have also smoked). Alcohol is a depressant. 4. You are anemic. That means your blood count is low. We did a test to see if there was blood in you bowel movement and it was positive. You were started on a medication called Protonix which helps to decrease the acid in your stomach. Alcohol can cause gastritis (irritation of the lining of the stomach) and sometimes even causes ulcers. 5. If you have any questions after you leave rehab Michael please don't hesitate to call me at: [phone]. God bless and good luck. Discharge Orders/Prescriptions Prescriptions: New pantoprazole 40 mg Tablet,Delayed Release (Dr/Ec) 40 mg PO DAILY Qty: 0 0RF Continued multivitamin Tablet 1 tab PO DAILY latanoprost 0.005 % drops 1 drp ophthalmic (eye) QPM duloxetine [Cymbalta] 60 mg Capsule,Delayed Release(Dr/Ec) 60 mg PO DAILY brimonidine 0.2 % Drops 1 drp EACH EYE TID Rx Instructions: administer approximately 8 hours apart Referrals / Follow Up: Ellyn Beaulieu NP-C [Primary Care Provider] - 04/15/22 1:20 pm Disposition Disposition (needs filled in before D/C Order can be placed): [facility] Facility
--- NOTE | 2022-04-07 13:33 | CASEMGMT ---
Social Work Spoke with Stacie, addictions therapist. Stacie is working on placing pt to [facility], [facility] 04/22. [facility] requesting therapy notes supporting pt's mobility. SW emailed latest notes to Stacie. [facility] to continue to follow. Chandni Loo, DIRECTOR OF INFORMATICS RAIL DETECTOR CAR OPERATOR
--- NOTE | 2022-04-07 15:55 | DS.PCM_ITS ---
Providers Date of Admission: 03/27/22 Date of Discharge: 04/07/22 Primary Care Physician: THAI Gann Reason For Visit: DEBILITY with generalized weakness. Diagnosis Discharge Diagnosis (1) Physical debility: Status: Acute Code(s): R53.81 - Other malaise (2) Generalized weakness: Status: Acute Code(s): R53.1 - Weakness (3) Abnormal transaminases: Status: Acute Code(s): R74.8 - Abnormal levels of other serum enzymes Plan: Mildly elevated at admission but normalized prior to DC. (4) Hyponatremia: Status: Resolved Code(s): E87.1 - Hypo-osmolality and hyponatremia Plan: Resolved (5) Macrocytic anemia: Status: Acute Code(s): D53.9 - Nutritional anemia, unspecified Plan: Folate, B12 and TSH are all normal. Macrocytosis possibly secondary to chronic liver disease due to ETOH. (6) History of depression: Status: Acute Code(s): Z86.59 - Personal history of other mental and behavioral disorders Plan: Continue Cymbalta. 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 (8) Fecal occult blood test positive: Status: Acute Code(s): R19.5 - Other fecal abnormalities Plan: Was started on Protonix and the HGB is stable at DC. Iron studies, B12, folate and TSH are normal. (9) Dyslipidemia: Status: Acute Code(s): E78.5 - Hyperlipidemia, unspecified Plan: LDL is 142 and the TRIG are elevated also. Plan 1. Transfer to the transitional care unit for additional PT/OT prior to being transferred to an inpatient alcohol/drug rehabilitation facility Medications at Discharge Home Medications latanoprost 0.005 % eye drops 1 drp ophthalmic (eye) QPM glaucoma 06/25/21 multivitamin 1 tab PO DAILY vitamin 06/25/21 brimonidine 0.2 % eye drops 1 drp EACH EYE TID glaucoma 03/27/22 duloxetine 60 mg capsule,delayed release (Cymbalta) 60 mg PO DAILY Check with primary doctor 03/27/22 pantoprazole 40 mg tablet,delayed release 40 mg PO DAILY #0 tabs 04/07/22 Hospital Course Operations None Procedures None Summary of Care Provided Minutes Spent on Discharge: 40 Hospital Course: Michael LITTLE, is a 66 YO M with a PMH of alcohol abuse, osteoarthritis, atrial fibrillation, hypertension, presbycusis, tobacco dependence and glaucoma who presented to [facility] on 03/21/2022 requesting admission for alcohol withdrawal.? His symptoms included tremulousness and he told the admitting physician he drinks to control the tremors.? He has never attempted to stop drinking and he started drinking as a teenager.? In the ED he was profoundly diaphoretic and tremulous.? His significant other is a drinker also.? He was admitted to the hospital to the [facility].? He was started on Thiamine, a MV and folic acid.? He was started on an alcohol withdrawal protocol with Phenobarbitol. ? CIWA protocol was ordered.? While in the hospital he was evaluated by PT/OT and they recommended acute rehab at OR due to generalized weakness and difficulty ambulating.? Significant lab abnormalities included elevated transaminases, elevated fasting glucose and macrocytic anemia. TSH, B12 and folate were all within normal limits and I suspect the macrocytosis is either due to chronic liver disease or to an increased reticulocyte count secondary to anemia. A Hemoccult stool was obtained and was positive. He was started on Protonix and his hemoglobin has been stable throughout his admission to rehab. While he was in rehab the [facility] Michael requested residential treatment for his alcohol use disorder. The best fit with his insurance would be to go to [facility]. Currently they do not have an open bed however, Michael is not yet ready for discharge. I order to go to [facility] he must be able to ascend/descend steps without LOB. He is not yet safe to do this. Michael did well in therapy and got stronger. At the time of discharge he is contact-guard assist to rise from various surfaces but sometimes requires multiple attempts to succeed, especially from low surfaces. He has ambulated up to 300 feet at contact-guard assist with a wheeled walker but continues to have a forward flexed posture. He was able to ascend/descend 5 steps with bilateral handrails at contact-guard assist but must be able to do steps with only 1 handrail prior to OR. He was able to do the tug test in 29.04 seconds. He can do 4 sit to stands in 30 seconds. He is still contact-guard assist with lower body dressing, toileting, toilet transfer and tub/shower transfer. On 04/07/22 he was transferred to TCU for additional PT/OT prior to planned DC to a residential [facility] center for patients with alcohol use disorder. Physical Exam Const alert and no apparent distress Constitutional Narrative: Pleasant, talkative, sleeping well and good oral intake. General Appearance: cooperative HEENT normocephalic Eyes PERRL and EOMs intact bilaterally Eyes Narrative: No scleral icterus, no conjunctival injection, no discharge from the eyes and no mattering of the eyelids. Resp normal respiratory effort and clear to auscultation bilaterally Resp Narrative: Mildly diminished breath sounds throughout. No conversational dyspnea, not tachypneic. Cardio regular rate, regular rhythm, S1 normal heart sound, S2 normal heart sound, no murmurs, no rub and no gallops GI normal to inspection, nondistended, normoactive bowel sounds, soft to palpation and non-tender GI Narrative: No guarding with palpation Extremity no calf tenderness Extremity Narrative: No edema. Skin General Skin Exam: no breakdown Rashes: no rashes Neuro CN's II-XII intact bilaterally, no focal motor deficits and no sensory deficits noted Psych affect normal Psych Narrative: He is calm with no tremors. He makes good eye contact and has no trouble word finding or speech abnormalities. He is forgetful but, thought process seems relatively intact otherwise. Appearance: appropriate Weight / BMI Weight Weight: 166 lb 7.184 oz Body Mass Index (BMI) 21.9 ABG / Lab / Microbiology Data Result Diagrams: 04/04/22 05:33 04/04/22 05:33 Microbiology: Microbiology 04/07/22 05:50 Nasal Secretion SARS-CoV-2 Antigen (Rapid) - Final Meaningful Use Info Meaningful Use Diagnoses (Choose all that apply): None applicable Discharge Plan Admission Admit Date/Time: 03/27/22 14:45 Primary Reason for Your Visit: Debility secondary to generalized weakness related to long-term alcohol use Attending Provider: Tammy Rapp Primary Care Provider: Ellyn Beaulieu Instructions Patient Instructions: Alcohol Addiction, Understanding Alcoholism, Alcoholism: Myths and Facts Additional Instructions / Restrictions: 1. Some of your liver tests were elevated when you were admitted to the [facility]. They were normal on the last labs drawn. I suspect the abnormalities in the liver tests were due to alcohol. You have elevated fats in your blood and alcohol causes fat infiltration into the liver causing fatty infiltration which many times precedes cirrhosis. I hope that you are successful in your efforts to stop drinking. 2. It is very difficult, if not impossible, to stop any addiction if others around you are still using. Stay away from people who are drinking and you will be less tempted to start again. You have made a very good decision to enter a residential treatment facility. This increases the odds that you will be successful in stopping Alcohol use/abuse. Remember, when you have an addiction you can not stop at one so don't think you will be able to have a drink now and again with friends and not have dividend deposit voucher clerk to recurrent Alcohol addiction. 3. You were in bad shape when you came to the hospital and you are much stronger now and more alert but, you have a ways to go yet. You must be able to climb steps to go to the residential rehab program. You need to get stronger. Everyone knows that alcohol can damage the liver but, long chain beamer abuse also suppresses bone marrow, weakens the heart, causes cognitive dysfunction, affects the nerves and can lead to numbness in the hands and feet, causes erectile dysfunction, causes pancreatic disease can can lead to diabetes (your blood sugars have been elevated) and also causes depression. It has been associated with certain cancers.....pancreatic cancer, esophageal cancer (apollo in people who have also smoked). Alcohol is a depressant. 4. You are anemic. That means your blood count is low. We did a test to see if there was blood in you bowel movement and it was positive. You were started on a medication called Protonix which helps to decrease the acid in your stomach. Alcohol can cause gastritis (irritation of the lining of the stomach) and sometimes even causes ulcers. 5. If you have any questions after you leave rehab Michael please don't hesitate to call me at: [phone]. God bless and good luck. Discharge Orders/Prescriptions Prescriptions: New pantoprazole 40 mg Tablet,Delayed Release (Dr/Ec) 40 mg PO DAILY Qty: 0 0RF Continued multivitamin Tablet 1 tab PO DAILY latanoprost 0.005 % drops 1 drp ophthalmic (eye) QPM duloxetine [Cymbalta] 60 mg Capsule,Delayed Release(Dr/Ec) 60 mg PO DAILY brimonidine 0.2 % Drops 1 drp EACH EYE TID Rx Instructions: administer approximately 8 hours apart Referrals / Follow Up: Ellyn Beaulieu NP-C [Primary Care Provider] - 04/15/22 1:20 pm Disposition Disposition (needs filled in before D/C Order can be placed): Group Home Facility Charges/Coding Visit Charges Inpatient E&M: 03174 Disch Hosp
[2022-04-07 16:11] VITALS: BP 109/70; PULSE 66; RESP 16; TEMP 36.8; O2SAT 93
--- NOTE | 2022-04-07 16:13 | NURSING ---
discharged to TCU report called to Manuela ROBERTS
== END 2022-04-07 16:14 | disposition skilled nursing facility (03) | DRG 897 ==
PROVIDERS: Admitting Provider Internal Medicine; PCP Nurse Practitioner Adult Health; Visit Provider Internal Medicine
DX: F10.288 Alcohol dependence with other alcohol-induced disorder (principal); D63.8 Anemia in other chronic diseases classified elsewhere; I48.91 Unspecified atrial fibrillation; D53.9 Nutritional anemia, unspecified; G62.9 Polyneuropathy, unspecified; F10.239 Alcohol dependence with withdrawal, unspecified; I10 Essential (primary) hypertension; E78.5 Hyperlipidemia, unspecified; K29.70 Gastritis, unspecified, without bleeding; K76.9 Liver disease, unspecified; M19.90 Unspecified osteoarthritis, unspecified site; H40.9 Unspecified glaucoma; Z59.89 Other problems related to housing and economic circumstances; R73.01 Impaired fasting glucose; F32.A Depression, unspecified; Z87.891 Personal history of nicotine dependence; Z79.899 Other long term (current) drug therapy; Y90.0 Blood alcohol level of less than 20 mg/100 ml
CPT/HCPCS: 36415; 80053; 80307; 82077; 82607; 82747; 83735; 84100; 85014; 85025; 85027; 85610; 87426; 92507; 93005; 96125; 97110; 97116; 97129; 97130; 97162; 97165; 97166; 97530; 97535; 97537; 97802; 99285; 99406; A4216

== ENCOUNTER 2022-04-07 16:09 | Inpatient (IN) | payer MEDICARE, SELFPAY ==
[2022-04-07 16:27] VITALS: BP 140/92; PULSE 82; RESP 18; TEMP 36.6; O2SAT 97; BMI 22.6
--- NOTE | 2022-04-07 17:34 | NURSING ---
Message left for [facility] asking about any vaccinations the pt has received there. Waiting for return call.
--- NOTE | 2022-04-07 19:32 | PCM.HP.STD ---
HPI - General General Date of Admission: 04/07/22 Date of Service: 04/07/22 Chief Complaint: Here for rehab. HPI Narrative Freya LITTLE, is a 66 Male who presents with followin03/21/2022 Hospitalization for alcohol withdrawal. PT/OT/ST. 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 Recommend 180 upon discharge. 04/07/2022 Admit to TCU with debility, here for rehabilitation, strengthening, prior to discharge to alcohol treatment program. COUNT INCLUDES THE [facility] Medical History Alcoholism Arthritis Atrial fibrillation Back pain Environmental allergies Glaucoma History of depression History of echocardiogram HTN (hypertension) Loss of hearing Shortness of breath on exertion Tachycardia Tobacco dependence in remission Wears glasses Home Medications latanoprost 0.005 % eye drops 1 drp ophthalmic (eye) QPM glaucoma 06/25/21 [History Last Taken 12/21/21] multivitamin 1 tab PO DAILY vitamin 06/25/21 [History Last Taken Unknown] brimonidine 0.2 % eye drops 1 drp EACH EYE TID glaucoma 03/27/22 [History Last Taken Unknown] duloxetine 60 mg capsule,delayed release (Cymbalta) 60 mg PO DAILY Depression 03/27/22 [History Last Taken Unknown] pantoprazole 40 mg tablet,delayed release 40 mg PO DAILY #0 tabs 04/07/22 [Rx Last Taken Unknown] Allergy/AdvReac Type Severity Reaction Status Date / Time No Known Allergies Allergy Verified 03/21/22 16:12 Family History Father Colon cancer Mother Diabetes Surgical History History of cardiac catheterization History of eye surgery History of hernia repair Social History household members: spouse housing: other details: He is being evicted from his current residence....they rent number of children: 2 Smoking Status: Former smoker Tobacco: How many years used: 42 how long ago did patient quit smokin months alcohol intake: current details: He went through detox in the hospital and was admitted on 03/21/22 substance use type: does not use what type of physical activity do you participate in: none ROS Constitutional Constitutional: Denies chills, fever(s) or weight gain ENT HEENT: Denies headache(s), nasal congestion or nasal discharge Cardiovascular Cardiovascular: Denies chest pain or palpitations Respiratory/Chest Respiratory/Chest: Denies cough, excessive phlegm production or shortness of breath with exertion Gastrointestinal Gastrointestinal: Denies abdominal pain, nausea or vomiting Genitourinary Genitourinary: Denies dysuria Musculoskeletal Musculoskeletal: Denies joint pain or joint swelling Integumentary Integumentary: Denies rash or wounds Neurologic Neurologic: Denies focal weakness, numbness or tingling Psychiatric Psychiatric: Denies anxiety, auditory hallucinations, depression, homicidal ideation or suicidal ideation Vital Signs Vital Signs Vital Signs: 04/07/22 16:27 04/07/22 16:27 Temperature 97.9 F Temperature Source Temporal Pulse Rate 82 Pulse Rhythm Regular Respiratory Rate 18 Respiratory Effort Normal Non-Labored Respiratory Depth Normal Respiratory Pattern Normal Blood Pressure 140/92 H Blood Pressure Mean 108 Blood Pressure Source Monitor Blood Pressure Position Sitting Blood Pressure Location Left Arm Pulse Ox 97 Oxygen Delivery Method Room Air Room Air Weight Weight: 77.649 kg Body Mass Index (BMI) 22.6 Physical Exam Const alert General Appearance: cooperative HEENT normocephalic Eyes PERRL and EOMs intact bilaterally Neck supple, no JVD and no carotid bruits Resp normal respiratory effort, normal air movement and clear to auscultation bilaterally Cardio regular rate and regular rhythm GI normal to inspection, nondistended, normoactive bowel sounds, non-tender and non-distended Extremity normal capillary refill General Extremity: Negative for edema Skin no rashes or lesions noted General Skin Exam: no breakdown Psych affect normal Appearance: appropriate Assessment & Plan Assessment/Plan (1) Debility: (2) Weakness: (3) Alcohol abuse: (4) Osteoarthritis: (5) Atrial fibrillation: (6) Hypertension: (7) Nicotine dependence: (8) Glaucoma: (9) Depression: PLAN: Plan 66 year old male with below past medical history hospitalized for alcohol detoxification, admitted to for rehabilitation, admitted to TCU with debility, here for rehabilitation, strengthening, prior to discharge to alcohol treatment program. Debility - PT/OT. Pain - Monitor. Bowel - Fleet enema daily prn, Dulcolax 10mg daily prn. Adult immunization - Administer pneumonia vaccine, covid19 vaccine, flu vaccine as appropriate. DVT prophylaxis - Hold, risk low. 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 Nutrition - MVI daily. Alcohol abuse - Recommend alcohol treatment program upon discharge, preferably inpatient, resident alcoholic, refuses to stop drinking, if he goes home, resident will start drinking again, and we will be back to square one.
[2022-04-07] MEDS: Latanoprost 0.005% 1 Bottle 1 DRP OPHTHALMIC (20:56)
[2022-04-07] MEDS: BRIMONIDINE 0.2% 5ML BOTTLE 1 DRP EACH EYE (21:27)
[2022-04-08] MEDS: BRIMONIDINE 0.2% 5ML BOTTLE 1 DRP EACH EYE ×3 (05:26→21:20)
[2022-04-08] MEDS: DULoxetine Hcl 60 MG Capsule PO (05:26)
[2022-04-08 05:30] LABS: Absolute Neutrophil Count 4.2 X10^3/uL (2.0-7.7); Basophil# 0.07 X10^3/uL; Basophil% 0.9 % (0-1); Eosinophil# 0.63 X10^3/uL; Eosinophils% 7.9 % (0-5); Hematocrit 39.9 % (40-54); Hemoglobin 13.4 g/dL (13.0-16.5); Lymphocyte % 26.4 % (19-41); Mean Corp Hgb Conc 33.6 g/dL (32-36); Mean Corpuscular Hgb 33.9 pg (27.0-32.0); Mean Platelet Vol. 9.7 fl (6.2-12.0); Monocyte# 0.95 X10^3/uL; Monocyte% 11.9 % (0-10); NRBC Flagged by Analyzer 0 % (0-5); Neutrophil # 4.19 X10^3/uL (2.7-7.7); Neutrophil % 52.6 % (47-70); Platelet Count 358 K/mm3 (150-450); RBC Distribution Width SD 48.7 fl (35.1-43.9); Red Blood Count 3.95 M/mm3 (4.6-6.2)
[2022-04-08 06:32] LABS: Anion Gap 7 (5-15); BUN 23 mg/dL (7-18); BUN/Creat Ratio 24.1 RATIO (10-20); Calcium,Total 8.6 mg/dL (8.5-10.1); Chloride 105 mmol/L (98-107); Creatinine, Serum 0.95 mg/dL (0.70-1.30); EST Glomerular Filtration Rate 83 mL/min (>60); Est Glom Filt Rate - Afr Amer 101 mL/min (>60); Estimated Creatinine Clearance 82.87 ml/min; Glucose 93 mg/dL (74-106); Potassium 3.8 mmol/L (3.5-5.1); Sodium Level 139 mmol/L (136-145)
[2022-04-08] MEDS: Multivitamins,Therapeutic Tablet 1 TABLET PO (07:25)
--- NOTE | 2022-04-08 08:12 | PCM.PN.DRR ---
TCU RX Drug Regimen Review Subjective: TCU Admission. 66 YOM hospitalized for alcohol detoxification where he was given a phenobarbital taper. Admitted to [facility] now admitted to TCU with debility for strengthening and rehabilitation prior to discharge to alcohol treatment program. Objective: Allergies No Known Allergies Allergy (Verified 03/21/22 16:12) Current Medications Generic Name Dose Route Start Last Admin Trade Name Freq PRN Reason Stop Dose Admin Bisacodyl 10 mg 04/07/22 16:59 Bisacodyl 10 Mg Suppository RC DAILY PRN Constipation Brimonidine Tartrate 1 drp 04/07/22 22:00 04/08/22 05:26 Brimonidine 0.2% 5ml Bottle EACH EYE 1 drp TID ALEJANDRO Administration Duloxetine HCl 60 mg 04/08/22 06:00 04/08/22 05:26 Duloxetine Hcl 60 Mg Capsule PO 60 mg DAILY ALEJANDRO Administration Latanoprost 1 drp 04/07/22 21:00 04/07/22 20:56 Latanoprost 0.005% 1 Bottle OPHTHALMIC 1 drp QPM ALEJANDRO Administration Multivitamins 1 tablet 04/08/22 08:00 04/08/22 07:25 Multivitamins,Therapeutic Tablet PO 1 tablet DAILYCM ALEJANDRO Administration Sodium Biphosphate/Sodium Phosphate 1 bottle 04/07/22 16:59 Fleet Enema RC DAILY PRN Constipation Sodium Chloride 10 - 40 ml 04/07/22 16:39 0.9% Saline Lock 10 Ml Syringe IV UD PRN SALINE FLUSH Tuberculin PPD 0.1 ml 04/08/22 10:00 Tuberculin,Purif.Prot.Deriv. 50 Tu/Ml Vial ID 04/08/22 10:01 X1 ONE Tuberculin PPD 0.1 ml 04/15/22 10:00 Tuberculin,Purif.Prot.Deriv. 50 Tu/Ml Vial ID 04/15/22 10:01 X1 ONE Problem List (Last Reviewed 04/07/22 @ 19:[address] Aj Jurado MD) Depression (Acute) Glaucoma (Acute) Nicotine dependence (Acute) Hypertension (Chronic) Atrial fibrillation (Acute) Osteoarthritis (Acute) Alcohol abuse (Acute) Weakness (Acute) Debility (Acute) Vital Signs Temp Pulse Resp BP Pulse Ox O2 Del Method 97.9 F 82 18 140/92 H 97 Room Air 04/07/22 16:27 04/07/22 16:27 04/07/22 16:27 04/07/22 16:27 04/07/22 16:27 04/07/22 16:27 Oxygen Delivery Method Room Air Weight: 77.649 kg Body Mass Index (BMI) 22.6 Sodium 139 mmol/L (136-145) 04/08/22 05:11 Potassium 3.8 mmol/L (3.5-5.1) 04/08/22 05:11 Chloride 105 mmol/L (98-107) 04/08/22 05:11 Carbon Dioxide 27.0 mmol/L (21.0-32.0) 04/08/22 05:11 Anion Gap 7 (5-15) 04/08/22 05:11 BUN 23 mg/dL (7-18) H 04/08/22 05:11 Creatinine 0.95 mg/dL (0.70-1.30) 04/08/22 05:11 Est GFR (MDRD) Af Amer 101 mL/min (>60) 04/08/22 05:11 Est GFR (MDRD) Non-Af 83 mL/min (>60) 04/08/22 05:11 BUN/Creatinine Ratio 24.1 RATIO (10-20) H 04/08/22 05:11 Glucose 93 mg/dL (74-106) 04/08/22 05:11 Assessment/Plan: 1. Bowel: fleet enema 1 RC daily PRN constipation and bisacodyl 10mg RC daily PRN constipation. Please continue to monitor for constipation, PRN usage, resident has not used either medication, no documented bowel movement? 2. Glaucoma: brimonidine 0.2% 1gtt OU TID and latanoprost 0.005% ophthalmic solution 1gtt OU QPM, Please continue to monitor eyes and BP (140/92). 3. Nutrition: multivitamin 1T PO daily. Please continue to monitor. Assessment/Plan for indications treated with psychotropic medications: 1. Depression: duloxetine 60mg PO daily. Please see physician note regarding GDR. Please continue to monitor resident's BP (140/92) and renal function resident has current CrCl of 82.8 mL/min current dose is appropriate max limit is 120 mg/day. This medication is on the BEERs list for falls. Resident has been stable on regimen. Medical chart and medication regimen reviewed. The following medication irregularities or issues were identified: None Date of Note:: 04/08/22
--- NOTE | 2022-04-08 09:45 | NURSING ---
New order for speech therapy evaluation for cognitive assessment.
[2022-04-08] MEDS: Tuberculin,Purif.prot.deriv. 50 TU/ML Vial 0.1 ML ID (11:13)
--- NOTE | 2022-04-08 11:19 | NURSING ---
Patient spoke with this nurse and he is interested in receiving a second COVID booster. Will let Katja know patient would like to be scheduled for one.
--- NOTE | 2022-04-08 15:50 | CASEMGMT ---
Social Work Met with patient to complete initial assessment. Pt transferred from where SW also assisted pt. Explained Medicare benefit with max. stay 20 days unless pt can pay privately for copays. Pt denied being able to pay OOP. The goal remains DC to [facility]. Discussed code status and MOLST form. Pt confirms full code. MOLST communicated to , placed in chart. SW to continue to follow. Chandni Loo, CUSTOMER ENGINEERING SPECIALIST SOFA COVER INSPECTOR
[2022-04-08 16:00] VITALS: BP 100/65; PULSE 66; RESP 14; TEMP 36.7; O2SAT 91
[2022-04-08] MEDS: Latanoprost 0.005% 1 Bottle 1 DRP OPHTHALMIC (20:04)
--- NOTE | 2022-04-08 20:13 | NURSING ---
Patient and family made aware of positive staff member.
[2022-04-08 20:16] VITALS: PULSE 73; RESP 16; O2SAT 93
[2022-04-09] MEDS: DULoxetine Hcl 60 MG Capsule PO (05:07)
[2022-04-09] MEDS: BRIMONIDINE 0.2% 5ML BOTTLE 1 DRP EACH EYE ×3 (05:07→22:08)
[2022-04-09] MEDS: Multivitamins,Therapeutic Tablet 1 TABLET PO (07:34)
[2022-04-09 14:47] VITALS: BP 110/78; PULSE 76; RESP 18; TEMP 36.2; O2SAT 96
--- NOTE | 2022-04-09 19:37 | NURSING ---
Patient's family called, left message to call back regarding update and patient testing positive for Covid.
--- NOTE | 2022-04-09 19:43 | NURSING ---
Patient's family returned call, updated on patient on unit positive for Covid.
[2022-04-09] MEDS: Latanoprost 0.005% 1 Bottle 1 DRP OPHTHALMIC (21:26)
[2022-04-10] MEDS: BRIMONIDINE 0.2% 5ML BOTTLE 1 DRP EACH EYE ×3 (05:39→23:05)
[2022-04-10] MEDS: DULoxetine Hcl 60 MG Capsule PO (05:40)
[2022-04-10] MEDS: Multivitamins,Therapeutic Tablet 1 TABLET PO (08:49)
[2022-04-10 15:01] VITALS: BP 121/86; PULSE 93; RESP 14; TEMP 36.7
[2022-04-10] MEDS: Latanoprost 0.005% 1 Bottle 1 DRP OPHTHALMIC (20:20)
[2022-04-11] MEDS: DULoxetine Hcl 60 MG Capsule PO (05:16)
[2022-04-11] MEDS: BRIMONIDINE 0.2% 5ML BOTTLE 1 DRP EACH EYE ×3 (05:16→21:48)
[2022-04-11] MEDS: Multivitamins,Therapeutic Tablet 1 TABLET PO (08:31)
[2022-04-11 10:21] VITALS: PULSE 80; RESP 18; O2SAT 96
--- NOTE | 2022-04-11 14:15 | RAD_ITS ---
EXAM: XR RIGHT SHOULDER COMPLETE, 2 OR MORE VIEWS CLINICAL INDICATION: Pain. TECHNIQUE: Two or more views of the right shoulder. This report was created using [employer] report generation technology. COMPARISON: None. FINDINGS: BONES/JOINTS: Moderate degenerative changes of the clavicular joint. No acute or healing fracture or malalignment. No unusual lytic or sclerotic lesions of bone. Small focus of high calcium hydroxyapatite crystal deposition disease along the humeral head posteriorly. Small enthesophyte at the coracoid process. SOFT TISSUES: Unremarkable. No soft tissue swelling or gas. No radiopaque foreign body. RAD/Shoulder min 2 Views IMPRESSION: Degenerative changes of the acromiohumeral joint without acute or healing fracture or malalignment. Electronically Signed: Junior Mathews MD at 22:03 EDT ,
[2022-04-11 15:17] VITALS: BP 116/69; PULSE 76; RESP 18; TEMP 36.7; O2SAT 97
--- NOTE | 2022-04-11 17:05 | NURSING ---
0 residual this evening, pt resting in bed, HOB elevated. pt swabbing mouth with swabette.
[2022-04-11] MEDS: MethylPREDNISolone DosePak 4 MG BOX PO ×2 (17:07→21:49)
[2022-04-11] MEDS: Arthritis Pain Compound 60 CLICK TUBE TOPICAL (17:07)
[2022-04-11] MEDS: Latanoprost 0.005% 1 Bottle 1 DRP OPHTHALMIC (21:55)
[2022-04-12] MEDS: BRIMONIDINE 0.2% 5ML BOTTLE 1 DRP EACH EYE ×3 (06:05→21:47)
[2022-04-12] MEDS: DULoxetine Hcl 60 MG Capsule PO (06:05)
[2022-04-12] MEDS: Arthritis Pain Compound 60 CLICK TUBE TOPICAL ×2 (06:05→17:55)
[2022-04-12] MEDS: MethylPREDNISolone DosePak 4 MG BOX PO ×4 (09:32→21:41)
[2022-04-12] MEDS: Multivitamins,Therapeutic Tablet 1 TABLET PO (09:33)
[2022-04-12] MEDS: Pneumococcal Vaccine 20 Valent 0.5 ML Syringe IM (12:23)
[2022-04-12 14:49] VITALS: BP 115/73; PULSE 78; RESP 14; O2SAT 96
[2022-04-12] MEDS: Latanoprost 0.005% 1 Bottle 1 DRP OPHTHALMIC (21:39)
[2022-04-13] MEDS: DULoxetine Hcl 60 MG Capsule PO (06:42)
[2022-04-13] MEDS: BRIMONIDINE 0.2% 5ML BOTTLE 1 DRP EACH EYE ×3 (06:43→20:28)
[2022-04-13] MEDS: Arthritis Pain Compound 60 CLICK TUBE TOPICAL ×2 (06:43→17:57)
[2022-04-13] MEDS: MethylPREDNISolone DosePak 4 MG BOX PO ×4 (08:38→20:21)
[2022-04-13] MEDS: Multivitamins,Therapeutic Tablet 1 TABLET PO (08:39)
[2022-04-13 10:00] VITALS: PULSE 71; RESP 16; O2SAT 96
[2022-04-13 16:00] VITALS: BP 105/57; PULSE 71; RESP 16; TEMP 36.4; O2SAT 95
[2022-04-13] MEDS: Latanoprost 0.005% 1 Bottle 1 DRP OPHTHALMIC (20:17)
--- NOTE | 2022-04-14 02:25 | NURSING ---
During rounds, pt noted to be in his bathroom. Staff did not assist w/ transfer. Pt educated on the importance of calling staff for assistance until cleared per therapy. Will report to oncoming nurse.
[2022-04-14] MEDS: BRIMONIDINE 0.2% 5ML BOTTLE 1 DRP EACH EYE ×3 (05:01→21:15)
[2022-04-14] MEDS: DULoxetine Hcl 60 MG Capsule PO (05:03)
[2022-04-14] MEDS: Arthritis Pain Compound 60 CLICK TUBE TOPICAL ×2 (05:05→17:12)
[2022-04-14] MEDS: MethylPREDNISolone DosePak 4 MG BOX PO ×3 (08:26→21:16)
[2022-04-14] MEDS: Multivitamins,Therapeutic Tablet 1 TABLET PO (08:26)
--- NOTE | 2022-04-14 09:42 | NURSING ---
Services Delivery Driver Note: Interview and Section F of MDS complete.
[2022-04-14 15:05] VITALS: BP 111/68; PULSE 67; RESP 14; TEMP 36.2; O2SAT 97
--- NOTE | 2022-04-14 16:00 | CASEMGMT ---
Addendum entered by Chandni Loo 04/15/22 15:17: Provided pt with housing resources. Original Note: Social Work BIMS () and PHQ-9 (09/12) completed for MDS assessment. Pt stated his landlord is evicting pt and by end of April due to renovations. SW offered to contact to provide resources or assist with housing. Pt denied stating gets touchy and to provide pt with the information to relay to . SW agreed and provided [employer] and [facility] resources to pt. Pt appreciative. Chandni Loo, HAL GODINEZW
--- NOTE | 2022-04-14 17:25 | NURSING ---
Patient and family made aware of positive staff member.
[2022-04-14] MEDS: Latanoprost 0.005% 1 Bottle 1 DRP OPHTHALMIC (21:15)
[2022-04-15] MEDS: Arthritis Pain Compound 60 CLICK TUBE TOPICAL (05:27)
[2022-04-15] MEDS: BRIMONIDINE 0.2% 5ML BOTTLE 1 DRP EACH EYE ×3 (05:28→20:49)
[2022-04-15] MEDS: DULoxetine Hcl 60 MG Capsule PO (05:28)
[2022-04-15 05:47] LABS: Absolute Neutrophil Count 5.5 X10^3/uL (2.0-7.7); Basophil# 0.07 X10^3/uL; Basophil% 0.8 % (0-1); Eosinophil# 0.27 X10^3/uL; Hematocrit 41.1 % (40-54); Lymphocyte % 27.4 % (19-41); Mean Corp Hgb Conc 34.1 g/dL (32-36); Mean Corpuscular Hgb 34.5 pg (27.0-32.0); Mean Corpuscular Volume 101.2 fL (80-94); Mean Platelet Vol. 9.8 fl (6.2-12.0); Monocyte# 0.83 X10^3/uL; Monocyte% 9.1 % (0-10); NRBC Flagged by Analyzer 0 % (0-5); Neutrophil # 5.45 X10^3/uL (2.7-7.7); Neutrophil % 59.5 % (47-70); Platelet Count 259 K/mm3 (150-450); RBC Distribution Width CV 12.9 % (11.6-14.6); RBC Distribution Width SD 48.5 fl (35.1-43.9); Red Blood Count 4.06 M/mm3 (4.6-6.2); White Blood Count 9.1 K/mm3 (4.4-11.0)
[2022-04-15 06:27] LABS: Anion Gap 7 (5-15); BUN 26 mg/dL (7-18); BUN/Creat Ratio 28.1 RATIO (10-20); Calcium,Total 8.4 mg/dL (8.5-10.1); Chloride 107 mmol/L (98-107); Creatinine, Serum 0.93 mg/dL (0.70-1.30); EST Glomerular Filtration Rate 86 mL/min (>60); Est Glom Filt Rate - Afr Amer 105 mL/min (>60); Estimated Creatinine Clearance 84.65 ml/min; Glucose 94 mg/dL (74-106); Potassium 4.1 mmol/L (3.5-5.1); Sodium Level 141 mmol/L (136-145)
[2022-04-15] MEDS: Multivitamins,Therapeutic Tablet 1 TABLET PO (08:18)
[2022-04-15] MEDS: MethylPREDNISolone DosePak 4 MG BOX PO ×2 (08:18→20:51)
[2022-04-15] MEDS: Tuberculin,Purif.prot.deriv. 50 TU/ML Vial 0.1 ML ID (12:38)
[2022-04-15 14:10] VITALS: BP 106/70; PULSE 81; RESP 17; TEMP 36.8; O2SAT 97
--- NOTE | 2022-04-15 17:38 | NURSING ---
Patient and family made aware of positive staff member.
[2022-04-15] MEDS: Latanoprost 0.005% 1 Bottle 1 DRP OPHTHALMIC (20:49)
[2022-04-16] MEDS: BRIMONIDINE 0.2% 5ML BOTTLE 1 DRP EACH EYE ×3 (05:45→20:23)
[2022-04-16] MEDS: Arthritis Pain Compound 60 CLICK TUBE TOPICAL ×2 (05:45→17:27)
[2022-04-16] MEDS: DULoxetine Hcl 60 MG Capsule PO (05:46)
[2022-04-16] MEDS: MethylPREDNISolone DosePak 4 MG BOX PO (08:04)
[2022-04-16] MEDS: Multivitamins,Therapeutic Tablet 1 TABLET PO (08:04)
[2022-04-16 14:31] VITALS: BP 109/68; PULSE 77; RESP 14; TEMP 36.6; O2SAT 97
--- NOTE | 2022-04-16 16:12 | NURSING ---
Patient's family notified of positive staff member
--- NOTE | 2022-04-16 16:13 | NURSING ---
Patient's family notified of positive resident
--- NOTE | 2022-04-16 16:36 | CASEMGMT ---
Social Work IDT met with patient and for care plan meeting. Discussed patient's progress in PT/OT/SN. Explained Medicare benefit. SW spoke to Stacie, detox coordinator, prior to meeting. Stacie confirmed pt will DC to [facility] once they have a bed available which is anticipated to be next week (04/22-04/25). Pt remains agreeable to plan but expressed concerns with leaving alone to move out of house and finding a new residence. then became emotional and tearful. SW dismissed team and had private discussion with pt and . SW explored 's emotions. Provided supportive listening. expressed feeling overwhelmed with the moving process, the uncertainty of where pt/ are moving to, how to move 13 years worth of memories/belongings, and stressed importance of taking cats to new home. SW validated feelings and empathized with the overwhelming feeling of unknowns and knowing where to start in packing. Explored with how she is coping. stated she is binge watching [place], reading several books and mowing the lawn, which she all enjoys. SW referenced the packed of housing resources provided to pt to begin contacting agencies, help lines, and [facility] to get information on how and where to begin. Offered to assist with process as able and stressed the importance of pt transitioning to treatment facility. and pt expressed understanding and appreciative of this worker. SW to continue to follow. HAL VenturaW
[2022-04-16] MEDS: Latanoprost 0.005% 1 Bottle 1 DRP OPHTHALMIC (20:18)
[2022-04-16 20:33] VITALS: PULSE 68; RESP 16; O2SAT 95
[2022-04-17] MEDS: BRIMONIDINE 0.2% 5ML BOTTLE 1 DRP EACH EYE ×3 (06:33→21:34)
[2022-04-17] MEDS: Arthritis Pain Compound 60 CLICK TUBE TOPICAL ×2 (06:33→17:36)
[2022-04-17] MEDS: DULoxetine Hcl 60 MG Capsule PO (06:35)
[2022-04-17] MEDS: Multivitamins,Therapeutic Tablet 1 TABLET PO (08:02)
--- NOTE | 2022-04-17 13:46 | MDS.RN ---
Information for the mds was obtained from review of the clinical record, interview of resident, staff, and direct observation of resident's care.
--- NOTE | 2022-04-17 14:24 | CHAPLAIN ---
Type of Pastoral Visit ___ Initial Visit _x__ Follow-up Visit ___ On-call Visit ___ General Patient Visit ___ Spiritual Assessment ___ Family Conference ___ Bereavement ___ Rapid Response ___ Code Blue ___ Other (describe below) Pastoral Care Referral From _x__ Patient ___ Family ___ Nurse ___ Physician ___ Bridal Stylist Sales Consultant ___ Client Experience Consultant ___ Other (describe below) Sacrament/Intervention _x__ Active listening ___ Anointing ___ Sabianism ___ Bereavement ___ Communion ___ Francesca exploration ___ _x__ Life review ___ Prayer ___ Reconciliation ___ Sacrament of Sick _x__ Supportive presence ___ Wedding ___ Other (describe below) Pastoral Comments this patient has been seen in patient wing, rehab, and now in TCU; pt appearance has improved as well as energy levels; pt is talkative as usual; pt expresses 'being torn' about going home and helping to move and/or to stay and attend 180 program for more addiction management;
[2022-04-17 14:29] VITALS: BP 117/74; PULSE 67; RESP 14; TEMP 36.4; O2SAT 94
[2022-04-17] MEDS: Latanoprost 0.005% 1 Bottle 1 DRP OPHTHALMIC (21:34)
[2022-04-18] MEDS: DULoxetine Hcl 60 MG Capsule PO (06:23)
[2022-04-18] MEDS: BRIMONIDINE 0.2% 5ML BOTTLE 1 DRP EACH EYE ×3 (06:23→21:39)
[2022-04-18] MEDS: Arthritis Pain Compound 60 CLICK TUBE TOPICAL ×2 (06:23→17:30)
[2022-04-18] MEDS: Multivitamins,Therapeutic Tablet 1 TABLET PO (07:45)
--- NOTE | 2022-04-18 15:16 | CASEMGMT ---
Social Work Received call from Becka at [facility] notifying SW that pt is accepted at [facility] facility and bed is available for DC 04/23. [facility] [employer] to transport pt at 1330. IDT updated. SW to notify pt Plan: DC 04/23 to [facility] HAL Ventura RADIO PERFORMER
[2022-04-18 15:24] VITALS: BP 108/62; PULSE 69; RESP 16; TEMP 36.6; O2SAT 94
--- NOTE | 2022-04-18 15:57 | DS.PCM_ITS ---
Providers Date of Admission: 04/07/22 Primary Care Physician: THAI Gann Reason For Visit: DEBILITY Diagnosis Discharge Diagnosis (1) Debility: Status: Acute Code(s): R53.81 - Other malaise (2) Weakness: Status: Acute Code(s): R53.1 - Weakness (3) Alcohol abuse: Status: Acute Code(s): F10.10 - Alcohol abuse, uncomplicated (4) Osteoarthritis: Status: Acute Code(s): M19.90 - Unspecified osteoarthritis, unspecified site (5) Atrial fibrillation: Status: Acute Code(s): I48.91 - Unspecified atrial fibrillation (6) Hypertension: Status: Chronic Code(s): I10 - Essential (primary) hypertension (7) Nicotine dependence: Status: Acute Code(s): F17.200 - Nicotine dependence, unspecified, uncomplicated (8) Glaucoma: Status: Acute Code(s): H40.9 - Unspecified glaucoma (9) Depression: Status: Acute Code(s): F32.A - Depression, unspecified Plan 66 year old male with below past medical history hospitalized for alcohol detoxification, admitted to for rehabilitation, admitted to TCU with debility, here for rehabilitation, strengthening, prior to discharge to alcohol treatment program. * Debility - PT/OT. * Pain - Monitor. * Bowel - Fleet enema daily prn, Dulcolax 10mg daily prn. * Adult immunization - Administer pneumonia vaccine, covid19 vaccine, flu vaccine as appropriate. * DVT prophylaxis - Hold, risk low. 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 * Nutrition - MVI daily. * Alcohol abuse - Recommend alcohol treatment program upon discharge, preferably inpatient, resident alcoholic, refuses to stop drinking, if he goes home, resident will start drinking again, and we will be back to square one. Medications at Discharge Home Medications latanoprost 0.005 % eye drops 1 drp ophthalmic (eye) QPM glaucoma 06/25/21 multivitamin 1 tab PO DAILY vitamin 06/25/21 brimonidine 0.2 % eye drops 1 drp EACH EYE TID glaucoma 03/27/22 duloxetine 60 mg capsule,delayed release (Cymbalta) 60 mg PO DAILY Depression 03/27/22 Hospital Course Operations None Procedures None Summary of Care Provided Minutes Spent on Discharge: 35 Hospital Course: 66 year old male with below past medical history hospitalized for alcohol detoxification, admitted to for rehabilitation, admitted to TCU with debility, here for rehabilitation, strengthening, prior to discharge to alcohol treatment program. Discharge to [facility] 04/23/2022 for alcohol addiction treatment. Physical Exam Const alert General Appearance: cooperative HEENT normocephalic Eyes PERRL and EOMs intact bilaterally Neck supple, no JVD and no carotid bruits Resp normal respiratory effort, normal air movement and clear to auscultation bilaterally Cardio regular rate and regular rhythm GI normal to inspection, nondistended, normoactive bowel sounds, non-tender and non-distended Extremity normal capillary refill General Extremity: Negative for edema Skin no rashes or lesions noted General Skin Exam: no breakdown Psych affect normal Appearance: appropriate Weight / BMI Weight Weight: 76.566 kg Body Mass Index (BMI) 22.6 ABG / Lab / Microbiology Data Result Diagrams: 04/15/22 05:15 04/15/22 05:15 Microbiology: Microbiology 04/17/22 14:55 Nasal Secretion SARS-CoV-2 Antigen (Rapid) - Final 04/14/22 05:17 Nasal Secretion SARS-CoV-2 Antigen (Rapid) - Final D/C Instructions Discharge Diet: No restrictions Discharge Activity: Return to Normal Activity, May Shower and Use Walker Weight Bearing Status: Weight bearing as tolerated Call your doctor if you observe: Fever of 101 or Higher, Inability to urinate, Inability to have a bowel movement, Shortness of breath, Dizziness, Fainting spells, Swelling in the ankles, Chest pain and Uncontrolled pain Additional Instructions: Discharge to [facility] 04/23/2022 for alcohol addiction treatment. Please Follow Up With: THAI Gann When: 1 week. Meaningful Use Info Meaningful Use Diagnoses (Choose all that apply): None applicable Discharge Plan Admission Admit Date/Time: 04/07/22 16:09 Primary Reason for Your Visit: Debility. Attending Provider: Aj Jurado Chi Primary Care Provider: Ellyn Beaulieu Instructions Additional Instructions / Restrictions: Discharge to [facility] 04/23/2022 for alcohol addiction treatment. Discharge Orders/Prescriptions Prescriptions: Continued multivitamin Tablet 1 tab PO DAILY latanoprost 0.005 % drops 1 drp ophthalmic (eye) QPM duloxetine [Cymbalta] 60 mg Capsule,Delayed Release(Dr/Ec) 60 mg PO DAILY brimonidine 0.2 % Drops 1 drp EACH EYE TID Rx Instructions: administer approximately 8 hours apart Discontinued pantoprazole 40 mg Tablet,Delayed Release (Dr/Ec) 40 mg PO DAILY Qty: 0 0RF Referrals / Follow Up: Ellyn Beaulieu SENIOR TRAINING SPECIALIST-C [Primary Care Provider] - Disposition Disposition (needs filled in before D/C Order can be placed): Inpatient Rehab Unit/Facility
--- NOTE | 2022-04-18 16:02 | TREXTCAR_ITS ---
Diet Diet Order/Speech Therapy: 04/07/22 16:58 Diet: Regular - General Food consistency:: Regular Liquid Consistency:: Regular/Thin Is pt able to select menu?: Yes Routine Orders/Code Status Code Status: Full Code Therapies Weight Bearing: Weight bearing as tolerated Problem/Diagnosis (1) Debility: Status: Acute Code(s): R53.81 - Other malaise (2) Weakness: Status: Acute Code(s): R53.1 - Weakness (3) Alcohol abuse: Status: Acute Code(s): F10.10 - Alcohol abuse, uncomplicated (4) Osteoarthritis: Status: Acute Code(s): M19.90 - Unspecified osteoarthritis, unspecified site (5) Atrial fibrillation: Status: Acute Code(s): I48.91 - Unspecified atrial fibrillation (6) Hypertension: Status: Chronic Code(s): I10 - Essential (primary) hypertension (7) Nicotine dependence: Status: Acute Code(s): F17.200 - Nicotine dependence, unspecified, uncomplicated (8) Glaucoma: Status: Acute Code(s): H40.9 - Unspecified glaucoma (9) Depression: Status: Acute Code(s): F32.A - Depression, unspecified Plan 66 year old male with below past medical history hospitalized for alcohol detoxification, admitted to for rehabilitation, admitted to TCU with debility, here for rehabilitation, strengthening, prior to discharge to alcohol treatment program. * Debility - PT/OT. * Pain - Monitor. * Bowel - Fleet enema daily prn, Dulcolax 10mg daily prn. * Adult immunization - Administer pneumonia vaccine, covid19 vaccine, flu vaccine as appropriate. * DVT prophylaxis - Hold, risk low. 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 * Nutrition - MVI daily. * Alcohol abuse - Recommend alcohol treatment program upon discharge, preferably inpatient, resident alcoholic, refuses to stop drinking, if he goes home, resident will start drinking again, and we will be back to square one. Allergies/Procedures Done in Hospital Allergies No Known Allergies Allergy (Verified 03/21/22 16:12) Procedures: None Type of Care/Length of Stay Estimated LOS: Convalescent Care Less Than 30 days Type of Care Needed: Half-Way/Assisted Living Rehab Potential: Good Prognosis: Good Additional Orders/Day of Discharge Day of Discharge: 04/23/22 Dietary and Speech Recommendations Dietitian Recommendations/Changes: Will continue regular diet as ordered. Adjust diet to cardiac as needed. Will offer ONS as needed if intake fails and/or weight declines, defer for now. Follow Up Care Please Follow Up With: THAI Gann Discharge Plan Admission Admit Date/Time: 04/07/22 16:09 Primary Reason for Your Visit: Debility. Attending Provider: Aj Jurado Chi Primary Care Provider: Ellyn Beaulieu Instructions Additional Instructions / Restrictions: Discharge to [facility] 04/23/2022 for alcohol addiction treatment. Discharge Orders/Prescriptions Prescriptions: Continued multivitamin Tablet 1 tab PO DAILY latanoprost 0.005 % drops 1 drp ophthalmic (eye) QPM duloxetine [Cymbalta] 60 mg Capsule,Delayed Release(Dr/Ec) 60 mg PO DAILY brimonidine 0.2 % Drops 1 drp EACH EYE TID Rx Instructions: administer approximately 8 hours apart Discontinued pantoprazole 40 mg Tablet,Delayed Release (Dr/Ec) 40 mg PO DAILY Qty: 0 0RF Referrals / Follow Up: Ellyn Beaulieu NP-C [Primary Care Provider] - Disposition Disposition (needs filled in before D/C Order can be placed): Inpatient Rehab Unit/Facility
[2022-04-18 21:00] VITALS: PULSE 70; RESP 16; O2SAT 96
[2022-04-18] MEDS: Latanoprost 0.005% 1 Bottle 1 DRP OPHTHALMIC (21:39)
[2022-04-19] MEDS: DULoxetine Hcl 60 MG Capsule PO (05:12)
[2022-04-19] MEDS: BRIMONIDINE 0.2% 5ML BOTTLE 1 DRP EACH EYE ×3 (05:12→20:30)
[2022-04-19] MEDS: Arthritis Pain Compound 60 CLICK TUBE TOPICAL ×2 (05:12→16:37)
[2022-04-19] MEDS: Multivitamins,Therapeutic Tablet 1 TABLET PO (08:02)
[2022-04-19 15:04] VITALS: BP 107/69; PULSE 74; RESP 18; TEMP 36.9; O2SAT 97
[2022-04-19 20:00] VITALS: PULSE 82; RESP 14; O2SAT 95
[2022-04-19] MEDS: Latanoprost 0.005% 1 Bottle 1 DRP OPHTHALMIC (20:25)
[2022-04-20] MEDS: Arthritis Pain Compound 60 CLICK TUBE TOPICAL ×2 (06:01→16:14)
[2022-04-20] MEDS: DULoxetine Hcl 60 MG Capsule PO (06:01)
[2022-04-20] MEDS: BRIMONIDINE 0.2% 5ML BOTTLE 1 DRP EACH EYE ×3 (06:01→21:36)
[2022-04-20] MEDS: Multivitamins,Therapeutic Tablet 1 TABLET PO (08:05)
[2022-04-20 16:00] VITALS: BP 103/64; PULSE 66; RESP 15; TEMP 36.9; O2SAT 98
[2022-04-20 21:00] VITALS: PULSE 65; RESP 16; O2SAT 93
[2022-04-20] MEDS: Latanoprost 0.005% 1 Bottle 1 DRP OPHTHALMIC (21:33)
[2022-04-21] MEDS: BRIMONIDINE 0.2% 5ML BOTTLE 1 DRP EACH EYE ×3 (05:32→20:52)
[2022-04-21] MEDS: DULoxetine Hcl 60 MG Capsule PO (05:32)
[2022-04-21] MEDS: Arthritis Pain Compound 60 CLICK TUBE TOPICAL ×2 (05:32→16:43)
[2022-04-21] MEDS: Multivitamins,Therapeutic Tablet 1 TABLET PO (07:45)
[2022-04-21 07:46] VITALS: PULSE 50; RESP 16; O2SAT 94
[2022-04-21 15:58] VITALS: BP 98/55; PULSE 69; RESP 20; TEMP 36.5; O2SAT 94
[2022-04-21 16:05] VITALS: BP 95/60
[2022-04-21 16:48] VITALS: BP 118/72; PULSE 72
[2022-04-21] MEDS: Latanoprost 0.005% 1 Bottle 1 DRP OPHTHALMIC (20:52)
[2022-04-22] MEDS: BRIMONIDINE 0.2% 5ML BOTTLE 1 DRP EACH EYE ×3 (05:14→20:37)
[2022-04-22] MEDS: DULoxetine Hcl 60 MG Capsule PO (05:14)
[2022-04-22] MEDS: Arthritis Pain Compound 60 CLICK TUBE TOPICAL ×2 (05:14→18:30)
[2022-04-22 06:01] LABS: Absolute Lymphocyte Count 2.15 X10^3/uL (0.83-4.51); Absolute Neutrophil Count 2.9 X10^3/uL (2.0-7.7); Basophil# 0.05 X10^3/uL; Basophil% 0.8 % (0-1); Eosinophils% 9.3 % (0-5); Hematocrit 41.3 % (40-54); Hemoglobin 14.2 g/dL (13.0-16.5); Lymphocyte # 2.15 X10^3/ul (0.83-4.51); Lymphocyte % 33.2 % (19-41); Mean Corp Hgb Conc 34.4 g/dL (32-36); Mean Corpuscular Hgb 34.5 pg (27.0-32.0); Mean Corpuscular Volume 100.2 fL (80-94); Mean Platelet Vol. 9.9 fl (6.2-12.0); Monocyte# 0.72 X10^3/uL; Monocyte% 11.1 % (0-10); NRBC Flagged by Analyzer 0 % (0-5); Neutrophil # 2.93 X10^3/uL (2.7-7.7); Neutrophil % 45.3 % (47-70); Platelet Count 226 K/mm3 (150-450); RBC Distribution Width CV 12.6 % (11.6-14.6); Red Blood Count 4.12 M/mm3 (4.6-6.2); White Blood Count 6.5 K/mm3 (4.4-11.0)
[2022-04-22 06:40] LABS: Anion Gap 6 (5-15); BUN 21 mg/dL (7-18); BUN/Creat Ratio 21.8 RATIO (10-20); Calcium,Total 8.7 mg/dL (8.5-10.1); Chloride 107 mmol/L (98-107); Creatinine, Serum 0.96 mg/dL (0.70-1.30); EST Glomerular Filtration Rate 82 mL/min (>60); Est Glom Filt Rate - Afr Amer 100 mL/min (>60); Estimated Creatinine Clearance 80.86 ml/min; Glucose 96 mg/dL (74-106); Potassium 3.9 mmol/L (3.5-5.1); Sodium Level 140 mmol/L (136-145)
[2022-04-22] MEDS: Multivitamins,Therapeutic Tablet 1 TABLET PO (08:00)
[2022-04-22 15:45] VITALS: BP 126/70; PULSE 73; RESP 14; O2SAT 97
--- NOTE | 2022-04-22 16:00 | CASEMGMT ---
Social Work Pt stating he is no longer wanting to go to treatment as his is needing help with moving/finding a new place to live. ALECIA updated Stacie, detox coordinator, whom stated she can come speak with pt tomorrow morning, but ultimately it is patients decision. ALECIA met with pt to discuss wishes further. Spent time conversing with pt. Educated pt on benefits of discharging to treatment facility, risk of relapsing upon return to environment and in home with who drinks alcohol as well. 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 Pt expressed understanding but stressed his determination thus far, staying sober, and once things are taken care of at home he plans to admit to treatment. Pt explained his has stopped drinking/heavily as well. Pt remains adamant about DC home. ALECIA updated IDT and Stacie. Chandni Loo, HAL GODINEZW
[2022-04-22 16:11] VITALS: TEMP 36.8
[2022-04-22] MEDS: Latanoprost 0.005% 1 Bottle 1 DRP OPHTHALMIC (20:37)
[2022-04-22 21:00] VITALS: PULSE 77; RESP 16; O2SAT 97
[2022-04-23] MEDS: DULoxetine Hcl 60 MG Capsule PO (05:30)
[2022-04-23] MEDS: BRIMONIDINE 0.2% 5ML BOTTLE 1 DRP EACH EYE (05:30)
[2022-04-23] MEDS: Arthritis Pain Compound 60 CLICK TUBE TOPICAL (05:30)
[2022-04-23 05:33] VITALS: PULSE 76; RESP 16; O2SAT 96
[2022-04-23] MEDS: Multivitamins,Therapeutic Tablet 1 TABLET PO (07:52)
--- NOTE | 2022-04-23 13:55 | CASEMGMT ---
Social Work BIMS () and PHQ-9 () completed for MDS assessment. Chandni Loo MSW ENERGY AND CONSERVATION TECHNICIAN
[2022-04-23 14:05] VITALS: BP 149/77; PULSE 67; RESP 19; TEMP 36.8; O2SAT 99
== END 2022-04-23 14:00 | disposition home or self-care (01) | DRG 897 ==
PROVIDERS: Admitting Provider Family Medicine Geriatric Medicine; PCP Nurse Practitioner Adult Health; Visit Provider Family Medicine Geriatric Medicine
DX: F10.288 Alcohol dependence with other alcohol-induced disorder (principal); F32.A Depression, unspecified; I48.91 Unspecified atrial fibrillation; M19.90 Unspecified osteoarthritis, unspecified site; I10 Essential (primary) hypertension; R53.1 Weakness; Z59.89 Other problems related to housing and economic circumstances; R53.81 Other malaise; Z87.891 Personal history of nicotine dependence; H40.9 Unspecified glaucoma; Z79.899 Other long term (current) drug therapy; Z23 Encounter for immunization
CPT/HCPCS: 36415; 73030; 80048; 85025; 87811; 90677; 91309; 92507; 92523; 97110; 97116; 97161; 97166; 97530; 97535; 97802; 99406; G0009